=== PATIENT | female | born 1945 | race Caucasian/White ===

== ENCOUNTER 2020-04-17 17:51 | Emergency (ER) | payer MEDICARE, OTHER, SELFPAY ==
[2020-04-17 17:56] VITALS: BP 162/89; PULSE 83; RESP 20; TEMP 36.7; O2SAT 95; BMI 38.9
--- NOTE | 2020-04-17 18:10 | ED_ITS ---
HPI - Extremity Problem General: Chief complaint: Extremity Problem,Nontraumatic Stated complaint: r leg pain Time Seen by Provider: 04/17/20 18:10 History of Present Illness: HPI Narrative: Patient is a 75-year-old female who comes to the ED with lower back pain that radiates down right leg. Symptoms started on May 13. Patient says she was moving too heavy objects at her home and after the symptoms started. Denies any bladder or bowel incon tinence, loss of sensation in the pelvic region, weakness to lower extremities. Associated symptoms: Deny chest pain, fever(s) or rash Review of Systems Const: Denies: fever(s), chills or fatigue Eyes: Denies: change in vision or eye discomfort ENMT: Denies: throat pain, odynophagia, nasal discharge or nasal congestion Card: Denies: chest pain, palpitations, edema, swelling of feet/ankles, dyspnea on exertion or orthopnea Resp: Denies: dyspnea, productive cough or non-productive cough GI: Denies: abdominal pain, nausea, vomiting, diarrhea, constipation or jerardo tochezia : Denies: flank pain, dysuria or hematuria Musc: Reports: back pain and extremity pain (right leg pain radiating down from back); Denies: neck pain or extremity swelling Skin/Breast: Denies: rash or new lesions Neuro: Denies: headache(s), numbness in extremities or weakness in extremities Physical Exam Const: COMMON NORMALS: no acute distress, patient oriented x3 and alert GENERAL APPEARANCE: cooperative and comfortable HENMT: COMMON NORMALS: normocephalic HEAD & SCALP: normocephalic MOUTH: Normal oral and palatal mucosa present THROAT: posterior oropharynx normal and uvula midline Eye: COMMON NORMALS: Equal, round and reactive pupils present PUPIL: Yes Equal, round and reactive pupils present Neck/C-Spine: COMMON NORMALS: supple GENERAL: Yes normal visual inspection Resp: COMMON NORMALS: normal respiratory effort, No retractions, No use of accessory muscles and clear to auscultation bilaterally AUSCULTATION: clear to auscultation bilaterally Cardio: COMMON NORMALS: regular rate, regular rhythm, S1 normal heart sound present, S2 normal heart sound present, No gallops present (Cardio), No clicks present (Cardio), No murmurs present (Cardio) and Peripheral pulses 2+ throughout RATE: regular rate RHYTHM: regular rhythm HEART SOUNDS: S1 normal heart sound present and S2 normal heart sound present PERIPHERAL PULSES: Peripheral pulses 2+ throughout GI: COMMON NORMALS: Normal to inspection, nondistended, normoactive bowel sounds present, Soft to palpation, non-tender and no masses INSPECTION: Yes central obesity PALPATION: Yes Soft to palpation : COMMON NORMALS: Yes no CVA tenderness BLADDER/KIDNEY EXAM: Yes no CVA tenderness Back/Pelvis: COMMON NORMALS: no CVA tenderness LUMBAR SPINE/LOWER BACK: Yes paraspinal muscle tenderness Lumbar paraspinal muscle tenderness: right and Yes straight leg raise positive right Extremity: COMMON NORMALS: no pedal edema NARRATIVE EXTREMITY EXAM: Patient has some mild edema in right thigh. GENERAL: Yes normal exam except as noted Neuro: COMMON NORMALS: patient oriented x3 and moves all extremities SENSORIUM/ORIENTATION: Yes alert Skin: COMMON NORMALS: no rashes or lesions noted GENERAL SKIN EXAM: no rashes or lesions noted and dry skin Course Vital Signs: Vital signs: Vital Signs Temperature 98.1 F 04/17/20 17:56 Pulse Rate 83 04/17/20 17:56 Respiratory Rate 18 04/17/20 20:11 Blood Pressure 162/89 04/17/20 17:56 Pulse Oximetry 95 04/17/20 17:56 MDM - Extremity (Nontraumatic) MDM Narrative: Medical decision making narrative: Patient is a 75-year-old female comes to the ED with low back pain that radiates down right leg. Patient also having some mild swelling of the right thigh. Symptoms started 2 days ago after she lifted and moved a heavy object in her house. Physical exam showed right lumbar muscle tenderness with positive right straight leg test performed. Denies any bladder or bowel incontinence, pelvic anesthesia or any weakness to extremities. Ultrasound venous duplex of right lower extremity showed no DVTs or blood clots. Patient diagnosed with lumbar radiculopathy and sent home with a Medrol Dosepak. Patient told to follow-up with PCP in 5 to 7 days for reevaluation. Return to ED precautions given. Patient understood and agreed with plan. Imaging Data^: US Vascular: Attestation: I personally reviewed and interpreted this imaging study as follows: Radiologist's impression: Ultrasound venous duplex of the right lower extremity shows no DVTs or blood clots seen. Discharge Plan Discharge Patient Disposition: Home Clinical Impression: Lumbar radiculopathy Condition: Stable Prescriptions: New Medrol (Ramses) 4 mg tablets,dose pack See Rx Instructions .ROUTE .COMPLEX Qty: 21 RF: 0 No Action Multiple Vitamins Tablet 1 tab PO DAILY RF: 0 metformin 500 mg tablet See Rx Instructions .ROUTE .COMPLEX RF: 0 trazodone 50 mg tablet 50 mg PO BEDTIME PRN (Reason: Sleep) RF: 0 hydrocodone-acetaminophen 5-325 mg tablet 1 tab PO Q4H PRN (Reason: Pain) RF: 0 lisinopril 20 mg tablet 20 mg PO DAILY RF: 0 Aspir-81 81 mg Tablet,Delayed Release (Dr/Ec) 81 mg PO DAILY RF: 0 diazepam 2 mg tablet 1 mg PO Q12H PRN (Reason: spasms) RF: 0 omeprazole 20 mg capsule,delayed release(DR/EC) 20 mg PO DAILY RF: 0 lovastatin 20 mg tablet 20 mg PO QPM RF: 0 Discharge Orders: Discharge Order (Routine); Ordered 04/17/20 Ordered By: Sanjeev Gaona Referrals: Shaquille Zelaya [Primary Care Provider] - Discharge Diet: Regular Discharge Activity: Increase activity as tolerated Patient Instructions: Lumbar Radiculopathy (ED) Activity Restrictions/Additional Instructions: Follow-up with medical provider as directed in 5-7 days for reevaluation. Take medications as prescribed. Rest and apply heat or cold pack on lower back and hip to help with symptoms. Take ibuprofen up to 600 mg dose 3 times a day. Return to the ER or your medical provider if condition worsens. Please read and understand discharge instructions. If any questions, please ask. Discharge Date/Time: 04/17/20 20:14 Coding Level of Care Code ED Residential Builder for Mary Fwceasar Exam Comprehensive
[2020-04-17 18:11] VITALS: RESP 18
--- NOTE | 2020-04-17 18:51 | USCV_ITS ---
Crissy Santoro Age: 75 Gender: F : 1945 Exam Date: 04/17/2020 19:46 Ordering Phys: Sanjeev Gaona Technologist: Gisselle Khoury [place] [facility] [place]: Pain and swelling HISTORY: Lower extremity swelling. Lower extremity pain. PROCEDURES: Venous duplex imaging was performed in only the right lower extremity. The following venous structures were evaluated: common femoral vein, profunda vein, proximal portion of the greater saphenous vein, superficial femoral vein, and the popliteal vein. In addition, the posterior tibial and peroneal trunk were evaluated. FINDINGS: Normal 2-D Doppler and augmentation and compressibility throughout the right lower extremity venous structures. Additional imaging through the proximal calf veins also reveals no thrombus. Limited evaluation of the greater saphenous vein is patent with no thrombus. There appears to be a complex area noted medial to the right knee. ? Ron's cyst Hypoechoic area measuring 4.76 x 1.14 cm CONCLUSIONS No evidence of DVT in the above-mentioned identifiable veins. Hypoechoic, heterogenous area measuring 4.76 x 1.14 cm on the medial aspect of the right knee, in the popliteal region, may suggest Ron's cyst. Cannot exclude other soft tissue masses Dr Bennett Duran MD [facility] (Electronically Signed) Final Date: 18 April 2020 12:32 S
[2020-04-17] MEDS: predniSONE 20 mg Tablet 60 MG PO (18:58)
[2020-04-17] MEDS: ketorolac 60 mg/2 mL INJ IM (18:59)
[2020-04-17 20:11] VITALS: RESP 18
== END 2020-04-17 20:14 | disposition home or self-care (01) ==
PROVIDERS: Emergency Provider Physician Assistant; PCP Family Medicine
DX: M54.16 Radiculopathy, lumbar region (principal); Z79.82 Long term (current) use of aspirin; M79.89 Other specified soft tissue disorders
CPT/HCPCS: 12345; 93971; 96372; 99281; 99283; J1885; J7512

== ENCOUNTER 2022-12-22 16:31 | Inpatient (IN) | payer MEDICARE, OTHER, SELFPAY ==
[2022-12-22 16:44] VITALS: BP 127/65; PULSE 85; RESP 16; TEMP 36.4; O2SAT 98
--- NOTE | 2022-12-22 16:47 | W.ED.SKABFB ---
HPI - Skin/Abscess/Foreign Bdy General: Chief complaint: Skin/Abscess/Foreign Body Stated complaint: left foot pain/poss metal in it Time Seen by Provider: 12/22/22 16:47 History of Present Illness: Ms Santoro is a 77-year-old lady with history of diabetes on oral agents presented to the emergency department for foot pain and swelling. She reports onset of symptoms approximately 1 week ago without known specific provoking event. She has subsequently seen primary care through the [facility] system and I guess an x-ray demonstrated possible foreign body. She has been on antibiotics for 3 days and has still had worsening. She denies proximal spread, she has had subjective fevers and chills however no other signs of systemic illness. Intensity is moderate of discomfort especially with weightbearing. I guess she was supposed to possibly have podiatry follow-up but this has not been scheduled yet. No other specific changes in health, exacerbating, or alleviating factors identified. Onset (ago): day(s) Location: L foot Severity: moderate Quality: aching Pain Consistency: constant Exacerbating factors: palpation Context: none Associated symptoms: Reports chills and fever(s) Treatments prior to arrival: antibiotic Review of Systems General: Reports: 10 or more systems reviewed and unremarkable except in HPI and below Const: Reports: fever(s) and chills PFSH ED PFSH: Medical History Diabetes Physical Exam Const: COMMON NORMALS: alert GENERAL APPEARANCE: cooperative and well developed HENMT: COMMON NORMALS: normocephalic and atraumatic HEAD & SCALP: normocephalic and atraumatic Eye: COMMON NORMALS: conjunctivae normal CONJUNCTIVA: Yes conjunctivae normal SCLERA: sclerae normal Neck/C-Spine: COMMON NORMALS: supple GENERAL: Yes trachea midline Resp: COMMON NORMALS: clear to auscultation bilaterally EFFORT & INSPECTION: Yes able to speak in complete sentences AUSCULTATION: clear to auscultation bilaterally Cardio: COMMON NORMALS: regular rate and regular rhythm RATE: regular rate RHYTHM: regular rhythm GI: COMMON NORMALS: Soft to palpation PALPATION: Yes Soft to palpation and No Tenderness to palpation present (GI) Extremity: NARRATIVE EXTREMITY EXAM: Left forefoot plantar surface with small break in the skin, there is erythema circumferentially about the forefoot spreading to mid midfoot. CMS intact. GENERAL: Yes normal exam except as noted and No edema Neuro: COMMON NORMALS: moves all extremities SENSORIUM/ORIENTATION: Yes alert and No Orientation impaired Psych: COMMON NORMALS: mental status grossly normal and Normal thought process present THOUGHT PROCESS: Normal thought process present Course Vital Signs: Vital signs: Vital Signs Temperature 98 F 12/24/22 10:53 Pulse Rate 92 12/24/22 10:53 Respiratory Rate 15 12/24/22 10:53 Blood Pressure 184/93 12/24/22 10:53 Pulse Oximetry 97 12/24/22 10:53 Oxygen Delivery Me thod Nasal Cannula 12/24/22 08:00 MDM - Skin/Abscess/Foreign Bdy Medicial Decision Making 77-year-old lady presenting due to concern over foot infection. Exam as above. Labs notable for leukocytosis, normal hemoglobin and platelet count. Metabolic panel with no significant electrolyte derangement. Inflammatory markers are mildly elevated. There is a radiopaque foreign body located on x-ray without evidence of fracture. Discussed with podiatry service who plans for operative removal. Patient treated with antibiotics. Most likely etiology of patient's symptoms is foreign body with diabetic foot infection. This is failed outpatient management. The results of ED evaluation were discussed with the patient including plan for admission due to requirement for level of care not available if discharged to prevent significant worsening/deterioration. Patient agreeable with plan. Discussed with hospitalist service who was agreeable to admit patient. Medical Records I reviewed the patient's medical records. Lab Data I reviewed the patient's lab results. 12/24/22 02:50 12/24/22 02:50 Radiology Impressions Foot X-Ray 12/22/22 16:57 IMPRESSION: Radiopaque foreign body in the plantar soft tissues overlying the 2nd metatarsal head. Laboratory Results WBC 24.6 10^3/uL (4.0-10.0) H 12/22/22 17:16 RBC 4.75 10^6/uL (4.1-5.3) 12/22/22 17:16 Hgb 13.1 g/dL (11.5-15.3) 12/22/22 17:16 Hct 41.6 % (37.0-47.0) 12/22/22 17:16 MCV 87.6 fl (81-99) 12/22/22 17:16 MCH 27.6 pg (28.0-34.0) L 12/22/22 17:16 MCHC 31.5 g/dL (30.0-36.0) 12/22/22 17:16 RDW 14.6 % (12.1-15.1) 12/22/22 17:16 Plt Count 269 10^3/cmm (130-400) 12/22/22 17:16 MPV 10.8 fL (7.4-10.4) H 12/22/22 17:16 Neut % (Auto) 22.3 % 12/22/22 17:16 Lymph % (Auto) 72.1 % 12/22/22 17:16 Burke % (Auto) 4.2 % 12/22/22 17:16 Eos % (Auto) 0.6 % 12/22/22 17:16 Baso % (Auto) 0.4 % 12/22/22 17:16 Neut # (Auto) 5.51 10^3/uL (1.8-7.7) 12/22/22 17:16 Lymph # (Auto) 17.8 10^3/uL (0.8-4.8) H 12/22/22 17:16 Burke # (Auto) 1.0 10^3/uL (0.2-0.9) H 12/22/22 17:16 Eos # (Auto) 0.2 10^3/uL (0.0-0.8) 12/22/22 17:16 Baso # (Auto) 0.1 10^3/uL (0.0-0.1) 12/22/22 17:16 Nucleated RBC % (auto) 0 % 12/22/22 17:16 Nucleated RBCs # 0.0 /100WBC 12/22/22 17:16 ESR 28 mm/hr (0-15) H 12/22/22 17:46 Sodium 140 mmol/L (136-145) 12/22/22 17:16 Potassium 4.7 mmol/L (3.5-5.1) 12/22/22 17:16 Chloride 101 mmol/L (98-107) 12/22/22 17:16 Carbon Dioxide 25 mmol/L (22-29) 12/22/22 17:16 Anion Gap 18.7 (5-19) 12/22/22 17:16 BUN 18 mg/dL (8-23) 12/22/22 17:16 Creatinine 0.7 mg/dL (0.5-0.9) 12/22/22 17:16 GFR Calculation Not Reportable 12/22/22 17:16 Glucose 144 mg/dL (65-115) H 12/22/22 17:16 Calculated Osmolality 294 mOsm/kg (285-295) 12/22/22 17:16 Lactic Acid 1.9 mmol/L (0.5-2.2) 12/22/22 17:16 Calcium 10.1 mg/dL (8.5-10.5) 12/22/22 17:16 Total Bilirubin 0.5 mg/dL (0.15-1.2) 12/22/22 17:16 AST 21 U/L (0-32) 12/22/22 17:16 ALT 23 U/L (0-33) 12/22/22 17:16 Alkaline Phosphatase 121 U/L (35-105) H 12/22/22 17:16 C-Reactive Protein 46.9 mg/L (0.0-4.9) H 12/22/22 17:43 Total Protein 7.3 g/dL (6.6-8.7) 12/22/22 17:16 Albumin 4.3 g/dL (3.5-5.2) 12/22/22 17:16 Globulin 3.0 g/dL (1.3-4.6) 12/22/22 17:16 Discharge Plan Discharge Patient Disposition: Placed in Observation Admit Provider: Clarice Santoyo Clinical Impression: Diabetic foot infection Coding Level of Care Code ED Motion Picture Director for Mary Mckeon
--- NOTE | 2022-12-22 16:57 | XRR_ITS ---
PROCEDURE INFORMATION: Exam: XR Left Foot Exam date and time: 12/22/2022 5:34 PM Age: 77 years old Clinical indication: Pain; Foot; Left; Additional info: Foot pain, redness, swelling, possible foreign body TECHNIQUE: Imaging protocol: Radiologic exam of the left foot. Views: 3 or more views. COMPARISON: No relevant prior studies available. FINDINGS: Bones/joints: The bones are intact and in normal alignment. Hypertrophic degenerative changes of the 2nd distal interphalangeal joint. Calcaneus spur. Soft tissues: 6 mm foreign body in the plantar soft tissues at the level of the 2nd metatarsal head. This is 6 mm deep to the skin surface on the lateral view. XR/XR foot LT min 3V* [id number] IMPRESSION: Radiopaque foreign body in the plantar soft tissues overlying the 2nd metatarsal head.
[2022-12-22 17:24] LABS: Basophils # 0.1 10^3/uL (0.0-0.1); Basophils % 0.4 %; Eosinophils # 0.2 10^3/uL (0.0-0.8); Eosinophils % 0.6 %; Hematocrit 41.6 % (37.0-47.0); Hemoglobin 13.1 g/dL (11.5-15.3); Lymphocytes # 17.8 10^3/uL (0.8-4.8); Lymphocytes % 72.1 %; Mean Corpuscular HGB Conc 31.5 g/dL (30.0-36.0); Mean Corpuscular Hemoglobin 27.6 pg (28.0-34.0); Mean Corpuscular Volume 87.6 fl (81-99); Mean Platelet Volume 10.8 fL (7.4-10.4); Monocytes % 4.2 %; Neutrophils # 5.51 10^3/uL (1.8-7.7); Neutrophils % 22.3 %; Nucleated Red Blood Cells % 0 %; Platelet Count 269 10^3/cmm (130-400); Red Blood Count 4.75 10^6/uL (4.1-5.3); Red Cell Distribution Width 14.6 % (12.1-15.1); White Blood Count 24.6 10^3/uL (4.0-10.0)
[2022-12-22 17:48] LABS: Alanine Aminotransferase 23 U/L (0-33); Albumin Level 4.3 g/dL (3.5-5.2); Alkaline Phosphatase 121 U/L (35-105); Anion Gap 18.7 (5-19); Aspartate Amino Transferase 21 U/L (0-32); Blood Urea Nitrogen 18 mg/dL (8-23); Calcium 10.1 mg/dL (8.5-10.5); Carbon Dioxide 25 mmol/L (22-29); Chloride 101 mmol/L (98-107); Creatinine Clr Calc Pharmacy 65.6782; Glucose 144 mg/dL (65-115); Osmolality Calculated 294 mOsm/kg (285-295); Potassium 4.7 mmol/L (3.5-5.1); Sodium 140 mmol/L (136-145); Total Bilirubin 0.5 mg/dL (0.15-1.2); Total Protein 7.3 g/dL (6.6-8.7)
[2022-12-22 17:49] LABS: Lactic Sepsis W/Reflex 1.9 mmol/L (0.5-2.2)
[2022-12-22 17:59] VITALS: O2SAT 97
[2022-12-22 18:01] VITALS: O2SAT 97
[2022-12-22 18:07] LABS: Slide Review Slide Review Perform
[2022-12-22] MEDS: piperacillin-tazobactam 4.5 GM in sodium chloride 0.9% (plus) 50 ML IV (18:43)
[2022-12-22 18:49] LABS: C Reactive Protein 46.9 mg/L (0.0-4.9)
[2022-12-22 19:15] LABS: Erythrocyte Sedimentation Rate 28 mm/hr (0-15)
--- NOTE | 2022-12-22 19:35 | PM.CONSULT ---
Providers/Reason For Consult Consulting Physician/Specialty*: Cuco Omalley.P.M./podiatry Reason for Consult*: Left foot foreign body with cellulitis Primary Care Provider: Shaquille Zelaya History of Present Illness History of Present Illness Crissy Santoro is a 77 year old female who presents to the emergency department with chief complaint of pain and swelling in her left foot x1 week. Patient does not recall stepping on anything. Patient states that she saw her primary care provider Dr. Morton for this and he placed her on oral antibiotics and told her that she needed to follow-up with podiatry in [place]. Follow-up with podiatry has not been established up to this point. She states that the redness and swelling has improved since starting the antibiotics however she still has tenderness and redness. She states that it is worse when she is weightbearing. Patient does have a history of type 2 diabetes. She states that her blood sugars are relatively regulated. She does not know exactly what her daily glucose is or what her most recent A1c is. She does endorse subjective fever, chills but denies any nausea or vomiting, shortness of breath or chest pain. Review of Systems General: Reports: 10 or more systems reviewed and unremarkable except in HPI and below Const: Denies: fever(s), chills, body aches or change in appetite Eyes: Denies: change in vision or blurry vision Card: Denies: chest pain, palpitations or irregular heart rhythm Resp: Denies: dyspnea GI: Denies: abdominal pain, nausea, vomiting or diarrhea Musc: Reports: joint stiffness Skin/Breast: Reports: lesions; Denies: non-healing lesions Neuro: Reports: numbness in extremities Medications/Allergies Home Medications Medication Instructions Recorded Confirmed Last Taken Type aspirin 81 mg tablet,delayed 81 mg PO DAILY 04/17/20 04/17/20 04/17/20 History release (Aspir-) diazepam 2 mg tablet 1 mg PO Q12H PRN spasms 04/17/20 04/17/20 04/17/20 06:00 History hydrocodone 5 mg-acetaminophen 325 1 tab PO Q4H PRN Pain 04/17/20 04/17/20 04/17/20 12:00 History mg tablet lisinopril 20 mg tablet 20 mg PO DAILY 04/17/20 04/17/20 04/16/20 History lovastatin 20 mg tablet 20 mg PO QPM 04/17/20 04/17/20 04/16/20 History metformin 500 mg tablet See Rx Instructions .Route .COMPLEX 04/17/20 04/17/20 04/17/20 History methylprednisolone 4 mg tablets in See Rx Instructions PO .COMPLEX 04/17/20 Unknown Rx a dose pack (Medrol (Ramses)) #21 ea multivitamin (Multiple Vitamins 1 tab PO DAILY 04/17/20 04/17/20 Unknown History tablet) omeprazole 20 mg capsule,delayed 20 mg PO DAILY 04/17/20 04/17/20 04/16/20 History release trazodone 50 mg tablet 50 mg PO BEDTIME PRN Sleep 04/17/20 04/17/20 04/16/20 History Allergies Allergy/AdvReac Type Severity Reaction Status Date / Time No Known Allergies Allergy Verified 04/17/20 18:24 PFSH Acute PFSH: Medical History (Updated 12/22/22 @ 19:42 by Shaquille Doll DPM) Diabetes Vitals/I&O/Wt Last Vital Signs Temp 97.6 F 12/22/22 16:44 Pulse 85 12/22/22 16:44 Resp 16 12/22/22 16:44 BP 127/65 12/22/22 16:44 Pulse Ox 97 12/22/22 18:01 O2 Del Method 12/22/22 18:01 Weight last 48 hrs Weight 210 lb Physical Exam Narrative: BELOW IS A FOCUSED LOWER EXTREMITY EXAM GENERAL: A&O x 3 VASCULAR: DP/PT pulses palpable 2/4 with CFT intact, <3seconds to distal digits. Marked edema to left foot concentrated around the forefoot DERMATOLOGICAL: Left foot is erythematous stemming from small puncture wound on plantar aspect of second metatarsal. No active drainage. Erythema envelops the entire left forefoot and is noted to be approximately 1 cm proximal to the metatarsophalangeal joints. There is no active drainage or purulence coming from the puncture site. Blanching noted to medial aspect of left second digit in the plantar sulcus tracking along the medial aspect of the second toe into the 1?2 interdigital space. No underlying fluctuance but tissues are noted to be taut on exam. MUSCULOSKELETAL: Tenderness with palpation of plantar left foot at the first, second and third metatarsal phalangeal joint regions including the medial first metatarsal phalangeal joint. Epicenter of pain is plantar aspect of second metatarsal. NEUROLOGICAL: Neurological sensation to the affected foot and ankle is present through L4-S1 dermatomes with no hyper/hypoesthesias, negative Tinel or Valleix's sign Data 12/22/22 17:16 12/22/22 17:16 Micro: Microbiology 12/22/22 17:16 Blood Culture - Preliminary Blood SPECIMEN COLLECTED 12/22/22 17:16 Blood Culture - Preliminary Blood SPECIMEN COLLECTED A&P Assessment and plan (1) Foreign body in left foot: (2) Diabetes: (3) Cellulitis: (4) Leukocytosis: Plan COURSE: Patient is a 77-year-old female that has a history of diabetes who presented to the emergency department with worsening left foot infection with foreign body present. She was placed on oral antibiotics per primary care provider. She states that the redness and swelling has improved since being on the oral antibiotics however, she still experiences pain and walking around and she has noticed redness and swelling. She does not recall stepping on anything. In the emergency department her work-up revealed leukocytosis with white count of 24.9. I discussed at length with the patient given the leukocytosis and the red, hot, swollen left forefoot with foreign body present on x-ray and her history of diabetes that the best course of action would be admission with IV antibiotics with surgical intervention to remove the foreign body with washout tomorrow 12/23/22. The patient stated that she cannot stay in the hospital because she needs to take care of her animals. She made a point to stay that she would leave AGAINST MEDICAL ADVICE to take care of her animals. She does not want stay in the hospital to get this taken care of if she does not have to. I advised the patient that my recommendation is admission with IV antibiotics and surgical intervention. If the patient does leave AGAINST MEDICAL ADVICE she assumes the risks that come with this which include worsening infection which could ultimately lead to amputation. Patient's sister was brought into the room to help her understand the gravity of the situation. After discussion with her and her sister the patient decided that she would stay in the hospital to get this taken care of to prevent worsening of the infection. Patient again made mention that she will not stay any longer that she has to and that she better be out of here by Sunday . 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 Radiopaque foreign body noted in plantar aspect of foot under the metatarsal phalangeal joints with increase soft tissue density. No subcutaneous emphysema noted. There appears to be a second radiopaque object noted on AP and oblique views under the second metatarsal which could present as a glass foreign body. This does not appear to represent the same foreign body visualized on the lateral projection which has increased radiopacity. No fractures or dislocations noted. ABX: Patient received vancomycin/Zosyn in the emergency department PLAN: -Admission to hospital with IV antibiotics and podiatry on consult -N.p.o. at midnight for procedure tomorrow (12/23/2022) for left foot incision and drainage with removal of foreign body -Continue IV antibiotics -Cultures of deep tissue will be obtained in the operating room tomorrow -Trend labs and monitor for decrease in white blood count, ESR and CRP -Plan for discharge will be determined after surgical intervention tomorrow (12/23/2022) -Podiatry will round on the patient while inpatient provide recommendations towards discharge Consult Attestations Medical Necessity Statement: Left foot foreign body, leukocytosis, elevated ESR, CRP necessitating surgical intervention Coding Level of Care Code Acute Code for Chg Fwd Diagnoses Foreign body in left foot S90.852A Diabetes E11.9 Cellulitis L03.90 Leukocytosis D72.829
--- NOTE | 2022-12-22 19:59 | P.HP_ITS ---
Providers/Chief Complaint Primary Care Provider: Shaquille Zelaya Chief Complaint: left foot pain/poss metal in it History of Present Illness Crissy Santoro is a 77 year old female with past medical history of diabetes, hypertension presents to the hospital with left foot pain and swelling that started about a week ago. She does not recall stepping on a nail or any other possible foreign body. She went to her primary care doctor and was given antibiotics for 3 days left foot Worsening therefore she presented to the hospital. She also reports subjective fevers and chills however no other signs of systemic illness. She is unable to weight-bear without discomfort. She was supposed to see podiatry as an outpatient however has not made it to the appointment yet. Says mostly her blood sugar is regulated. Does not know her A1c however. ED course: 127/65 heart rate 16, pulse 85, temperature 97.6, saturating 98% on room air. WBC 24,000, platelets 269, hemoglobin 13.1, sodium 140, potassium 4.7, anion gap 18.7, creatinine 0.7, glucose 144 Medications/Allergies Home Medications Medication Instructions Recorded Confirmed Last Taken Type aspirin 81 mg tablet,delayed 81 mg PO DAILY 04/17/20 04/17/20 04/17/20 History release (Aspir-) hydrocodone 5 mg-acetaminophen 325 1 tab PO Q4H PRN Pain 04/17/20 04/17/20 04/17/20 12:00 History mg tablet lisinopril 20 mg tablet 20 mg PO DAILY 04/17/20 04/17/20 04/16/20 History metformin 500 mg tablet See Rx Instructions .Route .COMPLEX 04/17/20 04/17/20 04/17/20 History omeprazole 20 mg capsule,delayed 20 mg PO DAILY 04/17/20 04/17/20 04/16/20 History release trazodone 50 mg tablet 50 mg PO BEDTIME PRN Sleep 04/17/20 04/17/20 04/16/20 History allopurinol 100 mg tablet 100 mg PO DAILY 12/22/22 12/22/22 12/22/22 History atorvastatin 20 mg tablet 20 mg PO DAILY 12/22/22 12/22/22 12/21/22 History Allergies Allergy/AdvReac Type Severity Reaction Status Date / Time No Known Allergies Allergy Verified 04/17/20 18:24 PFSH Acute PFSH: Medical History (Updated 12/23/22 @ 01:43 by Clarice Santoyo MD) Diabetes Vitals/I&O/Wt Last Vital Signs Temp 97.6 F 12/22/22 16:44 Pulse 85 12/22/22 16:44 Resp 16 12/22/22 16:44 BP 127/65 12/22/22 16:44 Pulse Ox 97 12/22/22 18:01 O2 Del Method 12/22/22 18:01 Weight last 48 hrs Weight 95.254 kg Physical Exam Narrative: General: Alert oriented x3, patient seen laying in bed appearing comfortable at this time. HEENT: Normocephalic, atraumatic, EOMI, no acute respiratory distress Cardio: Regular rate rhythm, normal S1-S2 Respiratory: Clear to auscultation bilaterally no wheezes no rhonchi GI: Abdomen soft, nontender, bowel sounds + Behavior: Appropriate and cooperative Extremities: No edema bilateral lower extremities. Left foot with erythematous with a small puncture wound present on plantar surface of foot. No active drain age. Tenderness to palpation of left first second and third metatarsal regions. Data 12/22/22 17:16 12/22/22 17:16 Micro: Microbiology 12/22/22 17:16 Blood Culture - Preliminary Blood SPECIMEN COLLECTED 12/22/22 17:16 Blood Culture - Preliminary Blood SPECIMEN COLLECTED A&P Assessment and plan (1) Leukocytosis: (2) Cellulitis: (3) Foreign body in left foot: (4) Diabetes: (5) Diabetes: (6) HTN (hypertension): Plan #Foreign body in left foot #Diabetic foot wound infection #Cellulitis #Leukocytosis most likely secondary to above #Diabetes mellitus #Hypertension ? Elevated ESR, CRP, WBC 24,000, glucose 144. X-ray left foot showed radiopaque foreign body noted in plantar aspect of foot under metatarsophalangeal joints with increased soft tissue density. No subcutaneous emphysema noted. ? Continue vancomycin and Zosyn ? N.p.o. at midnight for left foot I&D with removal of foreign body ? Podiatry consulted. Recommendations appreciated ? Further management to be decided after procedure ? Check hemoglobin A1c ? Continue lisinopril 20 daily ? Continue aspirin, atorvastatin, omeprazole ? Hold metformin at this time ? Sliding scale insulin low-dose intensity Full code SCDs, heparin SQ twice daily Attestations Medical Necessity Statement*: Greater than 2 midnight stay for management of foreign body in left foot cellulitis, diabetic foot wound infection. Patient going to I&D surgical procedure in AM. Other Coding Information Focused coding review requested Diagnoses Leukocytosis D72.829 Cellulitis L03.90 Foreign body in left foot S90.852A Diabetes E11.9 Diabetes E11.9 HTN (hypertension) I10
[2022-12-22 22:44] VITALS: BP 151/79; PULSE 82; RESP 17; TEMP 36.7; O2SAT 94
[2022-12-23] VITALS (16 sets, daily range): BP systolic 114–177; BP diastolic 58–94; PULSE 74–89; RESP 15–18; TEMP 36.1–36.8; O2SAT 90–100
[2022-12-23] MEDS: sodium chloride 0.9% 1,000 ML 125 ML IV ×4 (02:14→23:23)
[2022-12-23] MEDS: pantoprazole 40 mg SDV IVP (02:15)
[2022-12-23] MEDS: heparin 5,000 unit/mL INJ 1 mL 5000 UNIT SUBCUT ×2 (02:15→13:42)
[2022-12-23 02:23] LABS: Lactic Sepsis W/Reflex 2.9 mmol/L (0.5-2.2)
[2022-12-23 02:31] LABS: Procalcitonin 0.09 ng/mL (0-0.5)
[2022-12-23 02:32] LABS: Thyroid Stimulating Hormone 0.88 uIU/mL (0.27-4.20)
[2022-12-23] MEDS: piperacillin-tazobactam 3.375 GM in sodium chloride 0.9% (plus) 50 ML IV ×3 (03:09→17:57)
[2022-12-23 03:19] LABS: Alanine Aminotransferase 22 U/L (0-33); Albumin Level 3.7 g/dL (3.5-5.2); Alkaline Phosphatase 100 U/L (35-105); Anion Gap 19.3 (5-19); Aspartate Amino Transferase 25 U/L (0-32); Blood Urea Nitrogen 16 mg/dL (8-23); Calcium 9.8 mg/dL (8.5-10.5); Carbon Dioxide 22 mmol/L (22-29); Chloride 100 mmol/L (98-107); Creatinine Clr Calc Pharmacy 65.6782; Globulin 2.9 g/dL (1.3-4.6); Glucose 212 mg/dL (65-115); Osmolality Calculated 291 mOsm/kg (285-295); Potassium 4.3 mmol/L (3.5-5.1); Sodium 137 mmol/L (136-145); Total Bilirubin 0.4 mg/dL (0.15-1.2); Total Protein 6.6 g/dL (6.6-8.7)
[2022-12-23 03:20] LABS: Hematocrit 40.8 % (37.0-47.0); Hemoglobin 12.7 g/dL (11.5-15.3); Mean Corpuscular HGB Conc 31.1 g/dL (30.0-36.0); Mean Corpuscular Hemoglobin 27.5 pg (28.0-34.0); Mean Corpuscular Volume 88.5 fl (81-99); Mean Platelet Volume 11.5 fL (7.4-10.4); Platelet Count 264 10^3/cmm (130-400); Red Blood Count 4.61 10^6/uL (4.1-5.3); Red Cell Distribution Width 14.8 % (12.1-15.1); White Blood Count 19.4 10^3/uL (4.0-10.0)
[2022-12-23 03:44] LABS: Absolute Eosinophils 0.5 10^3/cmm (0.0-0.7); Absolute Neutrophil 4.7 10^3/cmm (1.4-6.5); Absolute Segmented Neutrophil 4.7 10/cmm (1.6-7.1); Eosinophils 3 %; Lymphocytes 63 %; Lymphocytes Absolute 12.8 10^3/cmm (1.2-3.4); Monocytes Absolute 1.4 10^3/cmm (0.1-0.6); Platelet Estimate Normal (Normal); Segmented Neutrophils 24 %; Total Cells Counted 100 (0-100)
[2022-12-23 03:52] LABS: Reflex Lactate Order REFLEX LACTIC ORDERD
[2022-12-23] MEDS: sodium chloride 0.9% 1,000 ML 999 ML IV (04:55)
[2022-12-23 05:08] LABS: Lactic Acid level (Lactate) 2.4 mmol/L (0.5-2.2)
[2022-12-23 09:26] LABS: Estmated Average Glucose 189; Hemoglobin A1C 8.2 % (4.0-6.0)
[2022-12-23 11:08] LABS: Glucose Point of Care 173 mg/dL (70-110)
--- NOTE | 2022-12-23 11:44 | W.PM.OPSUD ---
Surgery/Procedure H&P Update DATE OF PROCEDURE: December 23, 2022 DATE H&P PERFORMED: 12/22/22 CHANGES TO PREVIOUS DOCUMENTATION: No changes PLANNED PROCEDURE: Operation Date: 12/23/22 12:00 Proposed Procedures p Incision And Drainage and Remova of Foreign Body(Left) - Shaquille Doll DPM
--- NOTE | 2022-12-23 12:33 | ANES.PREANE2 ---
Pre-Anesthetic Assessment Height/Weight: Height 1.6 m Weight 95.254 kg Temp Pulse Resp BP Pulse Ox O2 Del Method 97.8 F 86 18 177/94 100 12/23/22 11:35 12/23/22 11:35 12/23/22 11:35 12/23/22 11:35 12/23/22 11:35 12/23/22 11:35 Operation Date: 12/23/22 12:00 Proposed Procedures p Incision And Drainage and Remova of Foreign Body(Left) - Shaquille Doll DPM Was Beta Shelia taken within 24 hours: N/A Social No alcohol and No tobacco Exam alert, oriented x 3, clear to auscultation bilaterally and regular rate & rhythm Airway Submandibular: within normal limits Cervical ROM: within normal limits Mallampati: Class II GI Gastroesophageal Reflux Disease (well controlled) Metabolic Diabetes Mellitus and Hyperlipidemia Anesthetic Plan ASA status: 3E Anesthesia: MAC Medications/Allergies Home Medications Medication Instructions Recorded Confirmed Last Taken Type aspirin 81 mg tablet,delayed 81 mg PO Q7D 04/17/20 12/22/22 04/17/20 History release (Aspir-) hydrocodone 5 mg-acetaminophen 325 1 tab PO Q4H PRN Pain 04/17/20 12/22/22 04/17/20 12:00 History mg tablet lisinopril 20 mg tablet 20 mg PO BEDTIME 04/17/20 12/22/22 12/21/22 History metformin 500 mg tablet See Rx Instructions .Route .COMPLEX 04/17/20 12/22/22 12/22/22 History omeprazole 20 mg capsule,delayed 20 mg PO DAILY 04/17/20 12/22/22 12/22/22 History release trazodone 50 mg tablet 50 mg PO BEDTIME PRN Sleep 04/17/20 12/22/22 04/16/20 History allopurinol 100 mg tablet 100 mg PO DAILY 12/22/22 12/22/22 12/22/22 History atorvastatin 20 mg tablet 20 mg PO DAILY 12/22/22 12/22/22 12/21/22 History Allergies Allergy/AdvReac Type Severity Reaction Status Date / Time No Known Allergies Allergy Verified 04/17/20 18:24 Current Medications Generic Name Dose Route Start Last Admin Trade Name Freq PRN Reason Stop Dose Admin Heparin Sodium (Porcine) 5,000 unit 12/23/22 01:45 12/23/22 02:15 Heparin 5,000 Unit/Ml Inj 1 Ml SUBCUT 5,000 unit Q12H MOIRA Administration Sodium Chloride 1,000 mls @ 125 mls/hr 12/23/22 01:45 12/23/22 09:59 Sodium Chloride 0.9% IV 125 mls/hr .Q8H MOIRA Administration Piperacillin Sod/Tazobactam 50 mls @ 12.5 mls/hr 12/23/22 03:00 12/23/22 10:59 Sod 3.375 gm/ Sodium Chloride IV 12.5 mls/hr Q8H MOIRA Administration Protocol Pantoprazole Sodium 40 mg 12/23/22 01:45 12/23/22 02:15 Pantoprazole 40 Mg Sdv IVP 40 mg Q24H MOIRA Administration PFSH Anesthesia Medical History (Updated 12/23/22 @ 01:43 by Clarice Santoyo MD) Diabetes Data Anesthesia 12/23/22 01:55 12/23/22 01:55 Short CBC 12/22/22 12/23/22 Range/Units 17:16 01:55 WBC 24.6 H 19.4 H (4.0-10.0) 10^3/uL Hgb 13.1 12.7 (11.5-15.3) g/dL Hct 41.6 40.8 (37.0-47.0) % MCV 87.6 88.5 (81-99) fl Plt Count 269 264 (130-400) 10^3/cmm Neut % (Auto) 22.3 % Neut # (Auto) 5.51 (1.8-7.7) 10^3/uL BMP 12/22/22 12/23/22 17:16 01:55 Sodium 140 137 Potassium 4.7 4.3 Chloride 101 100 Carbon Dioxide 25 22 BUN 18 16 Creatinine 0.7 0.8 Glucose 144 H 212 H Calcium 10.1 9.8 Liver Function 12/22/22 12/23/22 Range/Units 17:16 01:55 Total Bilirubin 0.5 0.4 (0.15-1.2) mg/dL AST 21 25 (0-32) U/L ALT 23 22 (0-33) U/L Alkaline Phosphatase 121 H 100 (35-105) U/L Albumin 4.3 3.7 (3.5-5.2) g/dL Coags 12/22/22 12/22/22 17:43 17:46 ESR 28 H C-Reactive Protein 46.9 H Microbiology 12/22/22 17:16 Blood Culture - Preliminary Blood SPECIMEN COLLECTED 12/22/22 17:16 Blood Culture - Preliminary Blood SPECIMEN COLLECTED Cardiac Studies: No Data to Display
--- NOTE | 2022-12-23 13:05 | PM.OP ---
Operative Report Date of procedure: December 23, 2022 Pre-op diagnosis: Cellulitis, foreign body left foot Post-op diagnosis: Same Post-op findings: Ceramic foreign body measuring 6 mm, triangular in shape pulled from plantar second metatarsal area of foot embedded in deep fascia with small abscess formation Procedure done: Incision and drainage left foot with removal of deep foreign body CPT 61101 Specimens removed/disposition: Cultures aerobic and anaerobic deep tissue sent to micro for ID and sensitivity Surgeon: Dr. Shaquille Doll, D.P.M. Estimated blood loss: Less than 5 cc 7 minutes Complications: None Findings: See above Brief History: Patient is a 77-year-old female that has a history of worsening left foot infection with foreign body. The patient has had the aforementioned chief complaint for approximately 1 week with worsening symptoms. The patient has failed outpatient antibiotics and presented to the emergency department with leukocytosis of 25,000 with clinical signs of left foot infection. The foreign body likely being the main source of infection requires surgical intervention. A lengthy discussion regarding the procedure, including risks and complications has been had with the patient. Written and verbal consent have been obtained. All patient questions have been answered to the patient?s satisfaction. No written or verbal guarantees have been given or implied. The patient has been NPO since midnight. The history has been reviewed and the history and physical is current. The signed consent was confirmed and placed in the patient chart. Patient imaging has been reviewed and is consistent with the diagnosis. Under mild sedation, the patient was brought into the operating room and left on the gurney in the supine position. The patient is receiving antibiotics [id number] on the floor. IV sedation was then performed by the anesthesiateam. A local field block using 20 cc of 0.5% Marcaine plain was then performed. A pneumatic tourniquet was then placed about the left ankle. The operative extremity was then prepped and draped in the usual fashion. The extremity was then elevated before the tourniquet was inflated to 250 mmHg. After inflation, the following procedure was then performed. Attention was directed to the plantar aspect of the left foot where a 3.5 cm incision was made over the plantar aspect of the second metatarsal. Dissection was carried down through subcutaneous and superficial fascia bluntly using a hemostat. There was noted to be accumulation of serous drainage with mild purulence in the deep fascia. A white ceramic appearing triangular shaped foreign body was visualized and grasped with a hemostat and removed from the foot. Further exploration of the wound was performed to assess integrity of adjacent structures. The tissues surrounding appeared healthy. Deep tissues both aerobic and anaerobic were obtained and sent to micro for ID and sensitivity. The area of the foreign body was noted to track dorsally into the 1?2 intermetatarsal space. No residual purulence was noted in this area and again, the tissues were noted to be healthy and viable in appearance. No bony involvement was appreciated. The site was then irrigated with copious amounts of sterile saline before attention was directed to closure. The incision was closed with 2-0 Prolene in horizontal mattress and simple interrupted fashion. The tourniquet was let down and good hyperemic response was noted to all digits of the left foot. The incision site was dressed with Xeroform, 4 x 4 gauze, Kerlix and Coban. The patient tolerated the procedure and anesthesia well and without complication. The patient was transported from the operating room to the recovery room with vital signs stable and vascular status intact to all digits of the left foot. The patient was instructed to remain weightbearing as tolerated to the operative extremity, to keep surgical dressing clean, dry and intact. The patient will be transferred back to the floor once anesthesia criteria is met. I will continue to round on and follow the patient in the inpatient setting and provide recommendations to stabilize the patient for discharge. We will trend labs and evaluate clinical response to status post incision and drainage with foreign body removal. If patient continues to improve anticipate discharge tomorrow (12/24/2022)
--- NOTE | 2022-12-23 13:23 | ANE.PACU2 ---
Inpatient post-anesthesia follow up: Vital signs: Temperature 98.0 F Pulse Rate 80 Respiratory Rate 16 Blood Pressure 122/78 Pulse Oximetry 97 Oxygen Delivery Me thod Room Air Oxygen Flow Rate Fraction of Inspir ed Oxygen Hydration adequate: Yes Nausea and vomiting: No Pain level: 1 Mental status: Baseline
--- NOTE | 2022-12-23 13:26 | PC.NURSE ---
Patient arrived to 252-2 back from surgery.
[2022-12-23] MEDS: vancomycin 1,500 MG/300 ML PIGGYBACK 200 MG IV (13:42)
--- NOTE | 2022-12-23 13:54 | P.PN_ITS ---
Subjective Subjective: Patient was seen this morning, she is not sure if she stepped on anything, but she does have sensation in bilateral feet, Vitals/I&O/Wt Last Vital Signs Temp 97.6 F 12/23/22 13:20 Pulse 79 12/23/22 13:20 Resp 16 12/23/22 13:20 BP 173/90 12/23/22 13:20 Pulse Ox 96 12/23/22 13:20 O2 Del Method 12/23/22 13:20 12/22/22 12/23/22 12/23/22 22:59 06:59 14:59 Intake Total 550 / 550 1000 / 1550 1018.75 / 1018.75 Output Total 5 / 5 Balance 550 / 550 1000 / 1550 1013.75 / 1013.75 Weight last 48 hrs Weight 95.254 kg Physical Exam Const: COMMON NORMALS: no acute distress and patient oriented x3 Resp: COMMON NORMALS: normal respiratory effort, No retractions, No use of accessory muscles and clear to auscultation bilaterally AUSCULTATION: clear to auscultation bilaterally Cardio: COMMON NORMALS: regular rate, regular rhythm, S1 normal heart sound present and S2 normal heart sound present RATE: regular rate RHYTHM: regular rhythm HEART SOUNDS: S1 normal heart sound present and S2 normal heart sound present GI: COMMON NORMALS: Normal to inspection, nondistended, normoactive bowel sounds present and non-tender Extremity: NARRATIVE EXTREMITY EXAM: Left foot erythema, swelling, tenderness, the entire forefoot Neuro: COMMON NORMALS: patient oriented x3 Psych: COMMON NORMALS: mental status grossly normal Data 12/23/22 01:55 12/23/22 01:55 Micro: Microbiology 12/22/22 17:16 Blood Culture - Preliminary Blood SPECIMEN COLLECTED 12/22/22 17:16 Blood Culture - Preliminary Blood SPECIMEN COLLECTED A&P Assessment and plan (1) Leukocytosis: (2) Cellulitis: (3) Foreign body in left foot: (4) Diabetes: (5) Diabetes: (6) HTN (hypertension): Plan #Foreign body in left foot #Diabetic foot wound infection #Cellulitis #Leukocytosis most likely secondary to above #Diabetes mellitus #Hypertension ? Elevated ESR, CRP, WBC 24,000, glucose 144. X-ray left foot showed radiopaque foreign body noted in plantar aspect of foot under metatarsophalangeal joints with increased soft tissue density. No subcutaneous emphysema noted. ? Continue vancomycin and Zosyn ? N.p.o. for foot I&D with removal of foreign body ? Podiatry consulted. Recommendations appreciated ? Further management to be decided after procedure ? Type 2 diabetes mellitus, A1c 8.2, low-dose sliding scale ? Continue lisinopril 20 daily ? Continue aspirin, atorvastatin, omeprazole ? Hold metformin at this time ? Sliding scale insulin low-dose intensity Full code SCDs, heparin SQ twice daily Attestations Medical Necessity Statement*: Patient requires hospitalization for cellulitis, diabetic foot infection, foreign body left foot Diagnoses Leukocytosis D72.829 Cellulitis L03.90 Foreign body in left foot S90.852A Diabetes E11.9 Diabetes E11.9 HTN (hypertension) I10
[2022-12-23 17:11] LABS: Glucose Point of Care 197 mg/dL (70-110)
[2022-12-23] MEDS: insulin lispro 100 unit/1 mL SUBCUT (17:57)
[2022-12-23] MEDS: acetaminophen 325 mg Tablet 650 MG PO (20:48)
[2022-12-23] MEDS: morphine 4 mg/mL SDV 1 mL 1 MG IVP (23:21)
[2022-12-24] MEDS: heparin 5,000 unit/mL INJ 1 mL 5000 UNIT SUBCUT (02:16)
[2022-12-24] MEDS: pantoprazole 40 mg SDV IVP (02:16)
[2022-12-24] MEDS: piperacillin-tazobactam 3.375 GM in sodium chloride 0.9% (plus) 50 ML IV (02:16)
[2022-12-24 03:34] VITALS: BP 155/77; PULSE 75; RESP 16; TEMP 36.7; O2SAT 94
[2022-12-24 04:06] LABS: Basophils # 0.1 10^3/uL (0.0-0.1); Basophils % 0.3 %; Eosinophils # 0.2 10^3/uL (0.0-0.8); Hematocrit 39.4 % (37.0-47.0); Hemoglobin 11.9 g/dL (11.5-15.3); Lymphocytes # 15.6 10^3/uL (0.8-4.8); Lymphocytes % 66.1 %; Mean Corpuscular HGB Conc 30.2 g/dL (30.0-36.0); Mean Corpuscular Volume 89.3 fl (81-99); Monocytes # 2.2 10^3/uL (0.2-0.9); Monocytes % 9.5 %; Neutrophils # 5.35 10^3/uL (1.8-7.7); Neutrophils % 22.8 %; Nucleated Red Blood Cells % 0 %; Platelet Count 261 10^3/cmm (130-400); Red Blood Count 4.41 10^6/uL (4.1-5.3); Red Cell Distribution Width 14.6 % (12.1-15.1); White Blood Count 23.5 10^3/uL (4.0-10.0)
[2022-12-24 04:24] LABS: Alanine Aminotransferase 27 U/L (0-33); Albumin Level 3.6 g/dL (3.5-5.2); Alkaline Phosphatase 104 U/L (35-105); Aspartate Amino Transferase 24 U/L (0-32); Blood Urea Nitrogen 11 mg/dL (8-23); Calcium 8.9 mg/dL (8.5-10.5); Carbon Dioxide 23 mmol/L (22-29); Chloride 102 mmol/L (98-107); Creatinine Clr Calc Pharmacy 65.6782; Globulin 2.5 g/dL (1.3-4.6); Glucose 203 mg/dL (65-115); Magnesium 1.7 mg/dL (1.7-2.3); Osmolality Calculated 283 mOsm/kg (285-295); Sodium 134 mmol/L (136-145); Total Bilirubin 0.2 mg/dL (0.15-1.2); Total Protein 6.1 g/dL (6.6-8.7)
[2022-12-24] MEDS: sodium chloride 0.9% 1,000 ML 125 ML IV (06:08)
--- NOTE | 2022-12-24 06:10 | PC.NURSE ---
Patient is adamantly saying she is going home this morning. Patient was educated that the physician has not put in discharge orders. Patient is agreeable to stay for now but states she is going home by noon today.
[2022-12-24 06:45] LABS: Glucose Point of Care 168 mg/dL (70-110)
[2022-12-24 08:00] VITALS: BP 184/93; PULSE 92; RESP 15; TEMP 36.6; O2SAT 97
--- NOTE | 2022-12-24 08:23 | P.PN_ITS ---
Subjective Subjective: Patient seen this morning. Upon entering the room she was seated in the chair getting dressed putting her shoes on stating that she is ready to leave. She denies any overnight events. States that she is feeling much better and that her foot does not hurt at all. Given her persistent elevated white blood cells I had another conversation with the patient in regards to her past medical history. She was much more compliant to talk about her past medical history this morning in comparison to when I first evaluated her in the emergency department. 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 Patient has removed her own IV and states that she is ready to go. Vitals/I&O/Wt Last Vital Signs Temp 98.1 F 12/24/22 03:34 Pulse 75 12/24/22 03:34 Resp 16 12/24/22 03:34 BP 155/77 12/24/22 03:34 Pulse Ox 94 12/24/22 03:34 O2 Del Method 12/24/22 03:34 12/23/22 12/24/22 12/24/22 22:59 06:59 14:59 Intake Total 1418.333 / 2437.083 1893.75 / 4330.833 Balance 1418.333 / 2432.083 1893.75 / 4325.833 Weight last 48 hrs Weight 210 lb Physical Exam Narrative: BELOW IS A FOCUSED LOWER EXTREMITY EXAM GENERAL: A&O x 3 VASCULAR: DP/PT pulses palpable 2/4 with CFT intact, <3seconds to distal digits. Mild edema to left forefoot DERMATOLOGICAL: Left foot erythema has improved, no pain with palpation of left forefoot. No underlying fluctuance no active drainage from incision site. Incision is well coapted with sutures intact. No evidence of dehiscence or signs of infection. MUSCULOSKELETAL: No tenderness with palpation of left foot or emily-incisional area NEUROLOGICAL: Neurological sensation to the affected foot and ankle is present through L4-S1 dermatomes with no hyper/hypoesthesias, negative Tinel or Valleix's sign Data 12/24/22 02:50 12/24/22 02:50 Micro: Microbiology 12/22/22 17:16 Blood Culture - Preliminary Blood NEGATIVE TO DATE 12/22/22 17:16 Blood Culture - Preliminary Blood NEGATIVE TO DATE 12/23/22 12:46 Gram Stain - Final Other Source A&P Assessment and plan (1) Foreign body in left foot: (2) Diabetes: (3) Cellulitis: (4) Leukocytosis: Plan COURSE: Patient is a 77-year-old female that has a history of diabetes who presented to the emergency department with worsening left foot infection with foreign body present. She was placed on oral antibiotics per primary care provider. She states that the redness and swelling has improved since being on the oral a ntibiotics however, she still experiences pain and walking around and she has noticed redness and swelling. She does not recall stepping on anything. In the emergency department her work-up revealed leukocytosis with white count of 24.9. I discussed at length with the patient given the leukocytosis and the red, hot, swollen left forefoot with foreign body present on x-ray and her history of alejandro betes that the best course of action would be admission with IV antibiotics with surgical intervention to remove the foreign body with washout tomorrow 12/23/22. The patient stated that she cannot stay in the hospital because she needs to take care of her animals. She made a point to stay that she would leave AGAINST MEDICAL ADVICE to take care of her animals. She does not want stay in the hospital to get this taken care of if she does not have to. I advised the patient that my recommendation is admission with IV antibiotics and surgical intervention. If the patient does leave AGAINST MEDICAL ADVICE she assumes the risks that come with this which include worsening infection which could ul timately lead to amputation. Patient's sister was brought into the room to help her understand the gravity of the situation. After discussion with her and her sister the patient decided that she would stay in the hospital to get this taken care of to prevent worsening of the infection. Patient again made mention that she will not stay any longer that she has to and that she better be out of here by Sunday . Continued: Patient is status post left foot incision and drainage with removal of foreign body. Patient has persistent leukocytosis. In discussing further with the patient at bedside in regards to her past medical history she informed me that she does have history of rheumatologic issues as well as a form of leukemia for which she follows with a provider in [place]. Patient states that she is feeling good and is leaving the hospital this morning. She has removed her IV and is fully dressed and ready to go when evaluated at bedside. 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 Radiopaque foreign body noted in plantar aspect of foot under the metatarsal phalangeal joints with increase soft tissue density. No subcutaneous emphysema noted. There appears to be a second radiopaque object noted on AP and oblique views under the second metatarsal which could present as a glass foreign body. This does not appear to represent the same foreign body visualized on the lateral projection which has increased radiopacity. No fractures or dislocations noted. ABX: Patient received vancomycin/Zosyn in the emergency department PLAN: -Okay for diet -No further surgical intervention per podiatry -Left foot appears stable at bedside with resolution of cellulitis and pain after surgery. I believe that her elevated white count is of an unrelated etiology given the clinical appearance of the foot, the findings and surgery and the patient's history of rheumatologic disease and leukemia. -Patient okay to be discharged home on oral antibiotics -Prescription for oral Augmentin sent through to patient pharmacy x10 days -I will monitor ID and sensitivity from surgical cultures and will tailor patient's antibiotics accordingly -Is to minimize weightbearing to left lower extremity as tolerated in postop shoe. She is to keep dressings clean, dry, intact until her follow-up in the office later this week -Patient will follow-up with podiatry in the outpatient setting on 12/29/2022 at 9 AM. Appointment reminder card given to patient -Patient is okay to discharge from podiatry standpoint on oral antibiotics with close follow-up. Patient is also scheduled to follow-up with her PCP Dr. Morton tomorrow/07/09 Attestations Medical Necessity Statement*: Left foot infection with foreign body underwent surgery Coding Level of Care Code Acute Code for Chg Fwd Diagnoses Foreign body in left foot S90.852A Diabetes E11.9 Cellulitis L03.90 Leukocytosis D72.829
[2022-12-24] MEDS: insulin lispro 100 unit/1 mL SUBCUT (09:19)
--- NOTE | 2022-12-24 10:03 | P.DS_ITS ---
Discharge Providers Date of Admission: 12/22/22 19:59 Date of Discharge: December 24, 2022 Attending Provider at Admission: Clarice Santoyo MD Attending Provider at Discharge: Jesse Zee MD Primary Care Provider: Shaquille Zelaya Diagnoses at Discharge Discharge Diagnosis (1) Foreign body in left foot: Status: Acute (2) Diabetes: Status: Acute (3) Cellulitis: Status: Acute (4) Leukocytosis: Status: Acute Reason for Visit Reason for Visit: left foot pain/poss metal in it Hospital Course Hospital Course This is a 37-year-old female with a past medical history of diabetes, history of CLL hypertension, hyperlipidemia, who presents [facility] due to left foot pain. Patient presented to [facility] for left foot cellulitis, with findings of foreign body, status post foreign body removal surrounding an incision and drainage. She was receiving antibiotics, until morning of 12/24/2022, patient removed her IVs and wanted to leave the hospital. I had extensive discussion with her, I had recommended another day of IV antibiotics and monitoring, her white blood cell count has elevated, but looks more lymphocytic from her CLL. However we do need to follow cultures, blood cultures so far negative, discussed morbidity and mortality about leaving the hospital too soon. She voiced understanding, all questions answered, she refuses to stay in the hospital any longer, she will be discharged on 10 remaining days of Augmentin with close follow-up with Dr. Doll as outpatient Physical Exam Const: COMMON NORMALS: no acute distress and patient oriented x3 Resp: COMMON NORMALS: normal respiratory effort, No retractions, No use of accessory muscles and clear to auscultation bilaterally AUSCULTATION: clear to auscultation bilaterally Cardio: COMMON NORMALS: regular rate, regular rhythm, S1 normal heart sound present and S2 normal heart sound present RATE: regular rate RHYTHM: regular rhythm HEART SOUNDS: S1 normal heart sound present and S2 normal heart sound present GI: COMMON NORMALS: Normal to inspection, nondistended, normoactive bowel sounds present and non-tender Extremity: COMMON NORMALS: no pedal edema NARRATIVE EXTREMITY EXAM: Left foot in the boot Neuro: COMMON NORMALS: patient oriented x3 Psych: COMMON NORMALS: mental status grossly normal Discharge Data Studies Completed and Pending Completed Studies During Hospitalization Category Date Time Status XR foot LT min 3V* [id number] Stat Exams 12/22/22 16:57 Completed Pending at discharge Category Date Time Status C-arm Fluoroscopy [id number] Routine Exams 12/23/22 11:47 Stop Req Anaerobic Culture Routine Lab 12/23/22 13:08 Received Blood Culture Stat Lab 12/22/22 17:16 Results Vancomycin Trough Timed Lab 12/25/22 01:00 Ordered Wound Culture and Gram Stain Routine Lab 12/23/22 12:46 Results Radiology Impressions Foot X-Ray 12/22/22 16:57 IMPRESSION: Radiopaque foreign body in the plantar soft tissues overlying the 2nd metatarsal head. Laboratory Results WBC 23.5 10^3/uL (4.0-10.0) H 12/24/22 02:50 RBC 4.41 10^6/uL (4.1-5.3) 12/24/22 02:50 Hgb 11.9 g/dL (11.5-15.3) 12/24/22 02:50 Hct 39.4 % (37.0-47.0) 12/24/22 02:50 MCV 89.3 fl (81-99) 12/24/22 02:50 MCH 27.0 pg (28.0-34.0) L 12/24/22 02:50 MCHC 30.2 g/dL (30.0-36.0) 12/24/22 02:50 RDW 14.6 % (12.1-15.1) 12/24/22 02:50 Plt Count 261 10^3/cmm (130-400) 12/24/22 02:50 MPV 11.0 fL (7.4-10.4) H 12/24/22 02:50 Neut % (Auto) 22.8 % 12/24/22 02:50 Lymph % (Auto) 66.1 % 12/24/22 02:50 [place] % (Auto) 9.5 % 12/24/22 02:50 Eos % (Auto) 1.0 % 12/24/22 02:50 Baso % (Auto) 0.3 % 12/24/22 02:50 Neut # (Auto) 5.35 10^3/uL (1.8-7.7) 12/24/22 02:50 Lymph # (Auto) 15.6 10^3/uL (0.8-4.8) H 12/24/22 02:50 [place] # (Auto) 2.2 10^3/uL (0.2-0.9) H 12/24/22 02:50 Eos # (Auto) 0.2 10^3/uL (0.0-0.8) 12/24/22 02:50 Baso # (Auto) 0.1 10^3/uL (0.0-0.1) 12/24/22 02:50 Nucleated RBC % (auto) 0 % 12/24/22 02:50 Total Counted 100 (0-100) 12/23/22 01:55 Atypical Lymphs % 3.0 % (0-5) 12/23/22 01:55 Absolute Neutrophils 4.7 10^3/cmm (1.4-6.5) 12/23/22 01:55 Segmented Neutrophils 24 % 12/23/22 01:55 Abs Segm Neuts (Man) 4.7 10/cmm (1.6-7.1) 12/23/22 01:55 Band Neutrophils 0.0 % 12/23/22 01:55 Abs Band Neuts (Man) 0.0 10^3/cmm (0.0-1.2) 12/23/22 01:55 Absolute Lymphocytes 12.8 10^3/cmm (1.2-3.4) H 12/23/22 01:55 Lymphocytes (Manual) 63 % 12/23/22 01:55 Monocytes (Manual) 7.0 % 12/23/22 01:55 Absolute Monocytes 1.4 10^3/cmm (0.1-0.6) H 12/23/22 01:55 Eosinophils (Manual) 3 % 12/23/22 01:55 Absolute Eosinophils 0.5 10^3/cmm (0.0-0.7) 12/23/22 01:55 Basophils (Manual) 0.0 % 12/23/22 01:55 Absolute Basophils 0.0 10^3/cmm (0.0-0.2) 12/23/22 01:55 Nucleated RBCs # 0.0 /100WBC 12/24/22 02:50 Platelet Estimate Normal (Normal) 12/23/22 01:55 ESR 28 mm/hr (0-15) H 12/22/22 17:46 Sodium 134 mmol/L (136-145) L 12/24/22 02:50 Potassium 4.0 mmol/L (3.5-5.1) 12/24/22 02:50 Chloride 102 mmol/L (98-107) 12/24/22 02:50 Carbon Dioxide 23 mmol/L (22-29) 12/24/22 02:50 Anion Gap 13.0 (5-19) 12/24/22 02:50 BUN 11 mg/dL (8-23) 12/24/22 02:50 Creatinine 0.6 mg/dL (0.5-0.9) 12/24/22 02:50 GFR Calculation Not Reportable 12/24/22 02:50 Glucose 203 mg/dL (65-115) H 12/24/22 02:50 POC Glucose 168 mg/dL (70-110) H 12/24/22 06:36 Estimat Average Glucose 189 12/23/22 01:55 Hemoglobin A1c 8.2 % (4.0-6.0) H 12/23/22 01:55 Calculated Osmolality 283 mOsm/kg (285-295) L 12/24/22 02:50 Lactic Acid 2.9 mmol/L (0.5-2.2) H 12/23/22 01:55 Lactic Acid (Sepsis) 2.4 mmol/L (0.5-2.2) H 12/23/22 04:45 Calcium 8.9 mg/dL (8.5-10.5) 12/24/22 02:50 Magnesium 1.7 mg/dL (1.7-2.3) 12/24/22 02:50 Total Bilirubin 0.2 mg/dL (0.15-1.2) 12/24/22 02:50 AST 24 U/L (0-32) 12/24/22 02:50 ALT 27 U/L (0-33) 12/24/22 02:50 Alkaline Phosphatase 104 U/L (35-105) 12/24/22 02:50 C-Reactive Protein 46.9 mg/L (0.0-4.9) H 12/22/22 17:43 Total Protein 6.1 g/dL (6.6-8.7) L 12/24/22 02:50 Albumin 3.6 g/dL (3.5-5.2) 12/24/22 02:50 Globulin 2.5 g/dL (1.3-4.6) 12/24/22 02:50 Procalcitonin 0.09 ng/mL (0-0.5) 12/23/22 01:55 TSH 0.88 uIU/mL (0.27-4.20) 12/23/22 01:55 Vitals Last Vital Signs Temp 98 F 12/24/22 08:00 Pulse 92 12/24/22 08:00 Resp 15 12/24/22 08:00 BP 184/93 12/24/22 08:00 Pulse Ox 97 12/24/22 08:00 O2 Del Method 12/24/22 08:00 Discharge Plan Discharge Patient Disposition: Home Condition: Stable Prescriptions: New amoxicillin-pot clavulanate 875-125 mg tablet 1 tab PO Q12H Qty: 20 0RF Continued metformin 500 mg tablet See Rx Instructions .ROUTE .COMPLEX Rx Instructions: 1000mg po qam and 500mg po with supper pt states she just takes one tab bid trazodone 50 mg tablet 50 mg PO BEDTIME PRN (Reason: Sleep) hydrocodone-acetaminophen 5-325 mg tablet 1 tab PO Q4H PRN (Reason: Pain) lisinopril 20 mg tablet 20 mg PO BEDTIME aspirin [Aspir-81] 81 mg Tablet,Delayed Release (Dr/Ec) 81 mg PO Q7D omeprazole 20 mg capsule,delayed release(DR/EC) 20 mg PO DAILY atorvastatin 20 mg Tablet 20 mg PO DAILY allopurinol 100 mg Tablet 100 mg PO DAILY Discharge Orders: Discharge Order (Routine); Ordered 12/24/22 Ordered By: Jesse Zee Referrals: Shaquille Zelaya [Primary Care Provider] - Patient Instructions: Type 2 Diabetes, Amoxicillin/Clavulanate Potassium (By mouth) (Augmentin, Augmentin..., Cellulitis (ED), Incision and Drainage (DC) Discharge Attestations Time Spent in Discharge Care*: greater than 30 min Quality Metrics Clinical Quality Measures [ No reported AMI, CVA or VTE this stay] Coding Level of Care Code 33864 Total time (in minutes) for Discharge: 40 Diagnoses Foreign body in left foot S90.852A Diabetes E11.9 Cellulitis L03.90 Leukocytosis D72.829
[2022-12-24 10:53] VITALS: BP 184/93; PULSE 92; RESP 15; TEMP 36.6; O2SAT 97
== END 2022-12-24 10:45 | disposition home or self-care (01) | DRG 988 ==
LOC: ER 20:09 → MEDSURG 20:45
PROVIDERS: Podiatrist Foot & Ankle Surgery; Admitting Provider Internal Medicine; Emergency Provider Emergency Medicine; PCP Family Medicine; Visit Provider Family Medicine
PROC: 0JCR0ZZ Extirpation of Matter from Left Foot Subcutaneous Tissue and Fascia, Open Approach (ICD-10-PCS; principal; 2022-12-23 11:50)
DX: E11.628 Type 2 diabetes mellitus with other skin complications (principal); C91.10 Chronic lymphocytic leukemia of B-cell type not having achieved remission; L03.116 Cellulitis of left lower limb; L02.612 Cutaneous abscess of left foot; S91.342A Puncture wound with foreign body, left foot, initial encounter; X58.XXXA Exposure to other specified factors, initial encounter; I10 Essential (primary) hypertension; R70.0 Elevated erythrocyte sedimentation rate; R79.82 Elevated C-reactive protein (CRP); E78.5 Hyperlipidemia, unspecified; K21.9 Gastro-esophageal reflux disease without esophagitis; Z79.84 Long term (current) use of oral hypoglycemic drugs
CPT/HCPCS: 36415; 36416; 73630; 80053; 82962; 83036; 83605; 83735; 84145; 84443; 85007; 85025; 85651; 86140; 87040; 87070; 87075; 87077; 87186; 87205; 96365; 96367; 96372; 99285; C9113; J1644; J1815; J2270; J2543; J2704; J3010; J3370; J3490; J7030; J7040

== ENCOUNTER → 2022-12-29 08:40 | Outpatient (BNVA) | payer MEDICARE, OTHER, SELFPAY | PROVIDERS: PCP Family Medicine; Visit Provider Podiatrist Foot & Ankle Surgery | DX: E11.9 Type 2 diabetes mellitus without complications (principal); S90.852A Superficial foreign body, left foot, initial encounter; X58.XXXA Exposure to other specified factors, initial encounter; Z79.84 Long term (current) use of oral hypoglycemic drugs | CPT/HCPCS: 99024 ==

== ENCOUNTER → 2023-01-05 09:14 | Outpatient (BNVA) | payer MEDICARE, OTHER, SELFPAY | PROVIDERS: PCP Family Medicine; Visit Provider Podiatrist Foot & Ankle Surgery | DX: Z98.890 Other specified postprocedural states (principal); L97.522 Non-pressure chronic ulcer of other part of left foot with fat layer exposed | CPT/HCPCS: 99024 ==

== ENCOUNTER → 2023-01-12 10:28 | Outpatient (BNVA) | payer MEDICARE, OTHER, SELFPAY | PROVIDERS: PCP Family Medicine; Visit Provider Podiatrist Foot & Ankle Surgery | DX: L97.522 Non-pressure chronic ulcer of other part of left foot with fat layer exposed (principal); Z98.890 Other specified postprocedural states | CPT/HCPCS: 11042 ==

== ENCOUNTER → 2023-01-26 10:01 | Outpatient (BNVA) | payer MEDICARE, OTHER, SELFPAY | PROVIDERS: PCP Family Medicine; Visit Provider Podiatrist Foot & Ankle Surgery | DX: Z98.890 Other specified postprocedural states (principal); L97.522 Non-pressure chronic ulcer of other part of left foot with fat layer exposed | CPT/HCPCS: 99024 ==

== ENCOUNTER → 2023-02-09 09:36 | Outpatient (BNVA) | payer MEDICARE, OTHER, SELFPAY | PROVIDERS: PCP Family Medicine; Visit Provider Podiatrist Foot & Ankle Surgery | DX: Z98.890 Other specified postprocedural states (principal); L97.522 Non-pressure chronic ulcer of other part of left foot with fat layer exposed | CPT/HCPCS: 99213 ==

== ENCOUNTER → 2023-02-28 10:03 | Outpatient (BNVA) | payer MEDICARE, OTHER, SELFPAY | PROVIDERS: PCP Family Medicine; Visit Provider Podiatrist Foot & Ankle Surgery | DX: Z51.89 Encounter for other specified aftercare (principal); L97.522 Non-pressure chronic ulcer of other part of left foot with fat layer exposed | CPT/HCPCS: 99024 ==

== ENCOUNTER 2024-10-03 08:58 | Emergency (ER) | payer MEDICARE, SELFPAY ==
[2024-10-03 09:15] VITALS: BP 164/83; PULSE 86; RESP 17; TEMP 36.3; O2SAT 97; BMI 34.7
--- NOTE | 2024-10-03 09:27 | ED_ITS ---
HPI - Epistaxis General: Chief complaint: Epistaxis Stated complaint: nosebleed Time Seen by Provider: 10/03/24 09:06 Source: patient Mode of arrival: ambulatory Limitations: no limitations History of Present Illness: Patient is a 79-year-old female presents to ED today for evaluation of epistaxis. Patient states in the middle of the night her nose felt stuffy so she used intranasal saline. She states she woke up this morning around 6:30 AM and while bending over in the kitchen getting food for her cats, she noticed bleeding from her right nare. She states this has waxed and waned all morning. She states she did take her blood pressure this morning and systolics were over 190s. She took her morning blood pressure medications. Upon arrival she is 164/83. Patient states she has no prior history of nosebleeds. She is not on anticoagulation. No recent injury or trauma. No current bleeding upon arrival. MD complaint: epistaxis Location: right nostril Onset (ago): hour(s) Duration: intermittent Context: hypertension Associated symptoms: Reports no associated symptoms; Deny fever(s), headache(s), sinus pain or vomiting Related Data Home Medications Medication Instructions Recorded Confirmed hydrocodone 5 mg-acetaminophen 325 1 tab PO Q4H PRN Pain 04/17/20 10/03/24 mg tablet lisinopril 20 mg tablet 20 mg PO BEDTIME 04/17/20 10/03/24 metformin 500 mg tablet See Rx Instructions .Route .COMPLEX 04/17/20 10/03/24 omeprazole 20 mg capsule,delayed 20 mg PO DAILY 04/17/20 10/03/24 release allopurinol 100 mg tablet 100 mg PO DAILY 12/22/22 10/03/24 atorvastatin 20 mg tablet 20 mg PO DAILY 12/22/22 10/03/24 acetaminophen 500 mg tablet 500 mg PO Q6H PRN Pain 10/03/24 10/03/24 ascorbic acid (vitamin C) 500 mg 250 mg PO DAILY 10/03/24 10/03/24 tablet (Vitamin C) aspirin 81 mg tablet,delayed 81 mg PO Q7D 10/03/24 10/03/24 release collagen, hydrolyzed 1 1 tab PO DAILY 10/03/24 10/03/24 gram-ascorbate calcium 10 mg tablet Allergies Allergy/AdvReac Type Severity Reaction Status Date / Time No Known Allergies Allergy Verified 02/28/23 10:07 Review of Systems Const: Denies: fever(s) ENMT: Reports: nasal congestion and epistaxis; Denies: sinus pain GI: Denies: nausea or vomiting Neuro: Denies: headache(s) PFSH ED PFSH: Medical History Diabetes Physical Exam Const: COMMON NORMALS: no acute distress, patient oriented x3, no limitations, alert and well nourished GENERAL APPEARANCE: cooperative HENMT: FACE & SINUS: normal facial exam NOSE: No nasal polyps present, Normal septum present and Epistaxis present (dried blood R nare; no active bleeding) MOUTH: Normal oral and palatal mucosa present and lip normal THROAT: posterior oropharynx normal and tonsils normal Neuro: COMMON NORMALS: patient oriented x3 SENSORIUM/ORIENTATION: Yes alert Course Vital Signs: Vital signs: Vital Signs Temperature 97.4 F L 10/03/24 09:15 Pulse Rate 86 10/03/24 09:15 Respiratory Rate 17 10/03/24 09:15 Blood Pressure 164/83 10/03/24 09:15 Pulse Oximetry 97 10/03/24 09:15 Oxygen Delivery Me thod Room Air 10/03/24 09:15 MDM - Epistaxis Medical Decision Making Applied Afrin/nasal clamp x 15-20 mins. This was then removed and patient watched for >30 mins without bleeding resuming. She will be sent home with clamp in case bleeding begins again at home. At time of discharge and my last encounter with patient, her blood pressure is 130s/80s. Discussed avoiding bending over, straining, coughing/sneezing, blowing nose, etc. Return precautions discussed. Differential Diagnosis Likely anterior epistaxis No radiology studies performed this visit Discharge Plan Discharge Patient Disposition: Home Clinical Impression: Anterior epistaxis Condition: Stable Prescriptions: No Action metformin 500 mg tablet See Rx Instructions .ROUTE .COMPLEX Rx Instructions: Take 1000mg by mouth in the am and 500mg with supper. hydrocodone-acetaminophen 5-325 mg tablet 1 tab PO Q4H PRN (Reason: Pain) lisinopril 20 mg tablet 20 mg PO BEDTIME omeprazole 20 mg capsule,delayed release(DR/EC) 20 mg PO DAILY aspirin [Aspir-81] 81 mg Tablet,Delayed Release (Dr/Ec) 81 mg PO Q7D acetaminophen 500 mg Tablet 500 mg PO Q6H PRN (Reason: Pain) ascorbic acid (vitamin C) [Vitamin C] 500 mg Tablet 250 mg PO DAILY collagen,hydrolyz-ascorbate Ca 1 gram- 10 mg Tablet 1 tab PO DAILY atorvastatin 20 mg Tablet 20 mg PO DAILY allopurinol 100 mg Tablet 100 mg PO DAILY Discharge Orders: Discharge ED (Routine); Ordered 10/03/24 Ordered By: Sofia Saleh Patient Instructions: Nosebleed (ED), Epistaxis - Adult Activity Restrictions/Additional Instructions: As we discussed, avoid bending over, straining, sneezing/coughing, etc as this could cause your nosebleed to resume. If bleeding does start again, administer 2 sprays of Afrin no spray to the right nare and placed nasal clamp x 20 minutes. If you are unable to control bleeding at home, you may return to the emergency department for further evaluation. Coding Level of Care Code ED Display Screen Fabricator for Mary Mckeon
[2024-10-03] MEDS: oxymetazoline 0.05% Nasal Spray 15 mL 2 SPRAY NOSTRIL-R (09:47)
[2024-10-03 11:00] VITALS: BP 132/72; PULSE 81; O2SAT 92
== END 2024-10-03 11:02 | disposition home or self-care (01) ==
PROVIDERS: Emergency Provider Physician Assistant
DX: R04.0 Epistaxis (principal); Z79.82 Long term (current) use of aspirin; E11.9 Type 2 diabetes mellitus without complications
CPT/HCPCS: 99283

== ENCOUNTER 2024-11-06 10:45 | Emergency (ER) | payer MEDICARE, SELFPAY ==
[2024-11-06 10:46] VITALS: BP 131/69; PULSE 80; RESP 17; TEMP 36.6; O2SAT 97; BMI 34.7
--- NOTE | 2024-11-06 11:01 | ECG_ITS ---
[facility] Test Date: 2024-11-06 Pat Name: Crissy Santoro Department: Room: Gender: Female Associate Dean [employer]: : 1945 Requested By: Jo Diaz Order Number: [id number] Joyce MD: Efrain Lock M.D. Measurements Intervals [place] Rate: 75 P: 49 ID: [id number] QRS: 30 QRSD: 81 T: 39 QT: 393 QTc: 441 Interpretive Statements SINUS RHYTHM Compared to ECG 02/04/2015 01:18:43 No significant changes Electronically Signed On 11-06-2024 17:50:35 [employer] by Efrain Lock M.D. [email or web address]
--- NOTE | 2024-11-06 11:02 | XR_ITS ---
WS: [id number] Exam: XR chest 1V portable [id number] Date/Time of Exam: 11/06/2024 11:22 AM Reason For Exam: hypertension Comparison 02/04/2015. Lungs are fully expanded and clear. Heart size top limits normal. The mediastinum is normal in contour. No pleural effusions. Rotator cuff anchoring screws in the LEFT humeral head. Degenerative changes of the RIGHT shoulder. XR/XR chest 1V portable [id number] IMPRESSION: 1. No acute cardiopulmonary finding.
--- NOTE | 2024-11-06 11:02 | W.ED.GENADLT ---
HPI - General Adult General: Chief complaint: General Medical Stated complaint: blood pressure concern. anxiety Time Seen by Provider: 11/06/24 10:45 History of Present Illness: This is a 79-year-old female with history of hypertension and obesity and diabetes who presents the emergency room by ambulance with a complaint of hypertension. She says her blood pressure was almost 200 this morning. EMS initially reported a systolic of 160. By the time she arrives here it is in the 120s and 130s. She has had no chest pain. No headaches. No altered mental status. No focal motor deficits. No vision changes. She called her PCP who she reports told her to go to the emergency room to rule out a heart attack. She is being treated for hypertension. It seems her pressures are higher in the morning. She says she has been having a lot of stress and anxiety. Related Data Home Medications ?Medication ?Instructions ?Recorded ?Confirmed metformin 500 mg tablet See Rx Instructions .Route .COMPLEX 04/17/20 11/06/24 omeprazole 20 mg capsule,delayed 20 mg PO DAILY 04/17/20 11/06/24 release allopurinol 100 mg tablet 100 mg PO DAILY 12/22/22 11/06/24 atorvastatin 20 mg tablet 20 mg PO DAILY 12/22/22 11/06/24 acetaminophen 500 mg tablet 500 mg PO Q6H PRN Pain 10/03/24 11/06/24 ascorbic acid (vitamin C) 500 mg 250 mg PO DAILY 10/03/24 11/06/24 tablet (Vitamin C) aspirin 81 mg tablet,delayed 81 mg PO Q7D 10/03/24 11/06/24 release amlodipine 2.5 mg tablet 2.5 mg PO DAILY 11/06/24 11/06/24 lisinopril 40 mg tablet 40 mg PO DAILY 11/06/24 11/06/24 Allergies Allergy/AdvReac Type Severity Reaction Status Date / Time No Known Allergies Allergy Verified 02/28/23 10:07 Review of Systems Narrative: Constitutional symptoms: Negative except as documented in HPI. Skin symptoms: Negative except as documented in HPI. Eye symptoms: Negative except as documented in HPI. ENMT symptoms: Negative except as documented in HPI. Respiratory symptoms: Negative except as documented in HPI. Cardiovascular symptoms: Negative except as documented in HPI. Gastrointestinal symptoms: Negative except as documented in HPI. Genitourinary symptoms: Negative except as documented in HPI. Musculoskeletal symptoms: Negative except as documented in HPI. Neurologic symptoms: Negative except as documented in HPI. Psychiatric symptoms: Negative except as documented in HPI. Endocrine symptoms: Negative except as documented in HPI. [facility], [facility] ED PFSH: Medical History Diabetes Physical Exam Narrative: EXAM NARRATIVE: General: Alert, no acute distress. Skin: Warm, dry. Head: Normocephalic, atraumatic. Neck: Supple, trachea midline. Eye: Extraocular movements are intact. Ears, nose, mouth and throat: mucosa moist. Cardiovascular: Regular, Normal peripheral perfusion. Respiratory: Lungs are clear to auscultation, respirations are non-labored, breath sounds are equal, Symmetrical chest wall expansion. Gastrointestinal: Soft, Nontender, Non distended Musculoskeletal: Normal ROM, no deformity. Neurological: Alert and oriented, No focal neurological deficit observed. Psychiatric: Cooperative, appropriate mood & affect. Course Vital Signs: Vital signs: Vital Signs Temperature 97.8 F 11/06/24 10:46 Pulse Rate 80 11/06/24 10:46 Respiratory Rate 17 11/06/24 10:46 Blood Pressure 143/48 11/06/24 12:30 Pulse Oximetry 94 11/06/24 12:30 [facility] - General Adult Medical Decision Making Medical decision making: Differential diagnosis including but not limited to and based on the above HPI, review of systems and physical exam: Patient presents with hypertension: Essential hypertension. Stroke. acute coronary syndrome. kidney failure. congestive heart failure. anxiety Orders placed to evaluate differential diagnosis based on the above differential, HPI and physical exam EKG: Time 1101. Rate 75. Normal sinus rhythm, No ST-T changes, no ectopy, normal WA & QRS intervals, This was reviewed and interpreted by myself the ER physician at 11:06 AM. Chest x-ray: No acute process. No infiltrate. No pneumothorax. This was reviewed and interpreted by myself the emergency room physician. I also reviewed the radiology report. Lab Review: Laboratory results were reviewed and interpreted by myself the emergency room physician. Patient has significant leukocytosis with a white count of 44,000. She normally runs between 20,000 and 25,000. I reviewed the patient's medical record. Reexamination: Patient remained stable. No increased work of breathing. No altered mental status. No focal motor deficits. Patient says she is quite ready to go home. Consultation. I spoke with Dr. Quesada with the oncology service here. Nothing needs done acutely but the patient does need to follow-up with her radio time buyer in [place] in the very near future. Assessment and plan: Hypertension CLL ? Blood pressures been quite well-controlled here in the emergency room. She needs to follow with her primary care provider. Her white count is elevated over her norm. She has known CLL. She will follow with her radio time buyer/oncologist in [place] in the very near future. - Discharged home - Discussed plan with patient. Answered any questions. - Evaluation and treatment of this problem were appropriate in the emergency setting. Lab Data 11/06/24 11:07 11/06/24 11:07 Radiology Impressions Chest X-Ray 11/06/24 11:02 IMPRESSION: 1. No acute cardiopulmonary finding. Laboratory Results WBC 44.34 10^3/uL (3.29-11.43) H* 11/06/24 11:07 RBC 4.71 10^6/uL (3.85-5.65) 11/06/24 11:07 Hgb 12.90 g/dL (11.27-16.99) 11/06/24 11:07 Hct 41.7 % (36-47) 11/06/24 11:07 MCV 88.5 fl (85-98) 11/06/24 11:07 MCH 27.4 pg (27-33) 11/06/24 11:07 MCHC 30.9 g/dL (30-55) 11/06/24 11:07 RDW 15.1 % (12.1-15.1) 11/06/24 11:07 Plt Count 236 10^3/cmm (157-399) 11/06/24 11:07 MPV 10.7 fL (7.4-10.4) H 11/06/24 11:07 Neut % (Auto) 14.7 % 11/06/24 11:07 Lymph % (Auto) 80.8 % 11/06/24 11:07 [place] % (Auto) 3.7 % 11/06/24 11:07 Eos % (Auto) 0.4 % 11/06/24 11:07 Baso % (Auto) 0.1 % 11/06/24 11:07 Neut # (Auto) 6.53 10^3/uL (1.8-7.7) 11/06/24 11:07 Lymph # (Auto) 35.8 10^3/uL (0.8-4.8) H 11/06/24 11:07 [place] # (Auto) 1.6 10^3/uL (0.2-0.9) H 11/06/24 11:07 Eos # (Auto) 0.2 10^3/uL (0.0-0.8) 11/06/24 11:07 Baso # (Auto) 0.1 10^3/uL (0.0-0.1) 11/06/24 11:07 Nucleated RBC % (auto) 0 % 11/06/24 11:07 Nucleated RBCs # 0.0 /100WBC 11/06/24 11:07 Sodium 140 mmol/L (136-145) 11/06/24 11:07 Potassium 4.4 mmol/L (3.5-5.1) 11/06/24 11:07 Chloride 100 mmol/L (98-107) 11/06/24 11:07 Carbon Dioxide 26 mmol/L (22-29) 11/06/24 11:07 Anion Gap 18.4 (5-19) 11/06/24 11:07 BUN 20 mg/dL (8-23) 11/06/24 11:07 Creatinine 0.7 mg/dL (0.5-0.9) 11/06/24 11:07 GFR Calculation Not Reportable 11/06/24 11:07 Glucose 164 mg/dL (65-115) H 11/06/24 11:07 Calculated Osmolality 296 mOsm/kg (285-295) H 11/06/24 11:07 Calcium 9.7 mg/dL (8.5-10.5) 11/06/24 11:07 Total Bilirubin 0.4 mg/dL (0.15-1.2) 11/06/24 11:07 AST 17 U/L (0-32) 11/06/24 11:07 ALT 21 U/L (0-33) 11/06/24 11:07 Alkaline Phosphatase 122 U/L (35-105) H 11/06/24 11:07 Troponin T Baseline 13 ng/L (0-10) H 11/06/24 11:07 NT-Pro-B Natriuret Pep 107 pg/mL (0-450) 11/06/24 11:07 Total Protein 7.0 g/dL (6.6-8.7) 11/06/24 11:07 Albumin 4.3 g/dL (3.5-5.2) 11/06/24 11:07 Globulin 2.7 g/dL (1.3-4.6) 11/06/24 11:07 Urine Color Yellow (Yellow) 11/06/24 11:42 Urine Appearance Cloudy (CLEAR) A 11/06/24 11:42 Urine pH 7.0 (5-7) 11/06/24 11:42 Ur Specific [place] 1.015 (1.005-1.030) 11/06/24 11:42 Urine Protein Negative (Negative) 11/06/24 11:42 Urine Glucose (UA) Negative (Normal) 11/06/24 11:42 Urine Ketones Negative (Negative) 11/06/24 11:42 Urine Blood Negative (Negative) 11/06/24 11:42 Urine Nitrate Negative (Negative) 11/06/24 11:42 Urine Bilirubin Negative (Negative) 11/06/24 11:42 Urine Urobilinogen 0.2 mg/dL (Negative) 11/06/24 11:42 Ur Leukocyte Esterase Negative (Negative) 11/06/24 11:42 Amorphous Sediment Not Reportable 11/06/24 11:42 All radiology interpretation(s) finalized by discharge Discharge Plan Discharge Patient Disposition: Home Clinical Impression: HTN (hypertension), CLL (chronic lymphocytic leukemia) Condition: Stable Prescriptions: No Action metformin 500 mg tablet See Rx Instructions .ROUTE .COMPLEX Rx Instructions: Take 1000mg by mouth in the am and 500mg with supper. omeprazole 20 mg capsule,delayed release(DR/EC) 20 mg PO DAILY aspirin [Aspir-81] 81 mg Tablet,Delayed Release (Dr/Ec) 81 mg PO Q7D acetaminophen 500 mg Tablet 500 mg PO Q6H PRN (Reason: Pain) ascorbic acid (vitamin C) [Vitamin C] 500 mg Tablet 250 mg PO DAILY lisinopril 40 mg tablet 40 mg PO DAILY amlodipine 2.5 mg tablet 2.5 mg PO DAILY atorvastatin 20 mg Tablet 20 mg PO DAILY allopurinol 100 mg Tablet 100 mg PO DAILY Discharge Orders: Discharge ED (Routine); Ordered 11/06/24 Ordered By: Jo Mojica Discharge Diet: Usual diet Discharge Activity: Increase activity as tolerated Patient Instructions: Hypertension (ED), Opioid Safety, Pain Management Activity Restrictions/Additional Instructions: You need to follow-up with your radio time buyer/oncologist concerning your elevated white blood cell count related to your CLL in the next week or 2. Thank you for choosing [facility] for your healthcare needs today. Please realize this is an emergency room and that we are providing you with a medical screening exam and this may not be complete and all inclusive of all the testing and or work up that you may need to determine your ailment or severity of your illness. You have been screened and evaluated and felt safe for discharge. Health conditions do change or evolve sometimes and as such it is important that you follow up with your Primary Doctor to be re checked, 3-5 days is a general good time frame for follow up. You are always welcome to return to the ED for re assessment if your symptoms are worsening or you have new concerns Print Language: Nepali Coding Level of Care Code ED Management Engineer for Mary Mckeon
[2024-11-06 11:19] LABS: Basophils # 0.1 10^3/uL (0.0-0.1); Basophils % 0.1 %; Eosinophils # 0.2 10^3/uL (0.0-0.8); Eosinophils % 0.4 %; Hematocrit 41.7 % (36-47); Lymphocytes # 35.8 10^3/uL (0.8-4.8); Lymphocytes % 80.8 %; Mean Corpuscular HGB Conc 30.9 g/dL (30-55); Mean Corpuscular Hemoglobin 27.4 pg (27-33); Mean Corpuscular Volume 88.5 fl (85-98); Mean Platelet Volume 10.7 fL (7.4-10.4); Monocytes # 1.6 10^3/uL (0.2-0.9); Monocytes % 3.7 %; Neutrophils # 6.53 10^3/uL (1.8-7.7); Neutrophils % 14.7 %; Nucleated Red Blood Cells % 0 %; Platelet Count 236 10^3/cmm (157-399); Red Blood Count 4.71 10^6/uL (3.85-5.65); Red Cell Distribution Width 15.1 % (12.1-15.1)
[2024-11-06 11:20] VITALS: BP 132/59; O2SAT 93
[2024-11-06 11:30] VITALS: BP 120/53; O2SAT 98
[2024-11-06 11:40] LABS: Troponin(5th) Baseline 13 ng/L (0-10)
[2024-11-06 11:51] LABS: Alanine Aminotransferase 21 U/L (0-33); Albumin Level 4.3 g/dL (3.5-5.2); Alkaline Phosphatase 122 U/L (35-105); Anion Gap 18.4 (5-19); Aspartate Amino Transferase 17 U/L (0-32); Blood Urea Nitrogen 20 mg/dL (8-23); Calcium 9.7 mg/dL (8.5-10.5); Carbon Dioxide 26 mmol/L (22-29); Chloride 100 mmol/L (98-107); Creatinine Clr Calc Pharmacy 61.3018; Globulin 2.7 g/dL (1.3-4.6); Glucose 164 mg/dL (65-115); NT Pro B Type Natriuretic Pept 107 pg/mL (0-450); Osmolality Calculated 296 mOsm/kg (285-295); Potassium 4.4 mmol/L (3.5-5.1); Sodium 140 mmol/L (136-145); Total Bilirubin 0.4 mg/dL (0.15-1.2)
[2024-11-06 12:00] VITALS: BP 124/55; O2SAT 95
[2024-11-06 12:10] LABS: White Blood Count 44.34 10^3/uL (3.29-11.43)
[2024-11-06 12:13] LABS: Slide Review Slide Review Perform
[2024-11-06 12:30] VITALS: BP 143/48; O2SAT 94
[2024-11-06 12:35] LABS: Bilirubin Urine Negative (Negative); Blood Urine Negative (Negative); Glucose Urine UA Negative (Normal); Ketones Urine Negative (Negative); Leukocyte Esterase Urine Negative (Negative); Nitrate Urine Negative (Negative); Protein Urine Negative (Negative); Specific Gravity, Urine 1.015 (1.005-1.030); Urine Appearance Cloudy (CLEAR); Urine Color Yellow (Yellow); Urobilinogen Urine 0.2 mg/dL (Negative)
[2024-11-06 13:03] VITALS: BP 143/48; PULSE 81; O2SAT 97
[2024-11-06 13:03] LABS: UA Manual Slide Review YES; UA Slide Review UA Slide Review Perf
[2024-11-06 13:15] LABS: Add Urine Culture? No; Bacteria Urine TRACE /hpf; RBC Urine 0-4 /hpf (0-2); Squamous Epithelial Cell Urine 0-4 /hpf (0-5)
== END 2024-11-06 13:05 | disposition home or self-care (01) ==
PROVIDERS: Emergency Provider Emergency Medicine
DX: I10 Essential (primary) hypertension (principal); C91.10 Chronic lymphocytic leukemia of B-cell type not having achieved remission; Z79.84 Long term (current) use of oral hypoglycemic drugs; Z79.82 Long term (current) use of aspirin
CPT/HCPCS: 36415; 71045; 80053; 81001; 83880; 84484; 85025; 93005; 99285

== ENCOUNTER 2025-03-21 05:32 | Emergency (ER) | payer MEDICARE, OTHER, SELFPAY ==
[2025-03-21 05:34] VITALS: BP 172/80; PULSE 85; RESP 16; O2SAT 96; BMI 33.6
--- NOTE | 2025-03-21 05:39 | CTR_ITS ---
PROCEDURE INFORMATION: Exam: CT Head Without Contrast Exam date and time: 03/21/2025 5:51 AM Age: 80 years old Clinical indication: Injury or trauma; Fall; Blunt trauma (contusions or hematomas) TECHNIQUE: Imaging protocol: Computed tomography of the head without contrast. Radiation optimization: All CT scans at this facility use at least one of these dose optimization techniques: automated exposure control; mA and/or kV adjustment per patient size (includes targeted exams where dose is matched to clinical indication); or iterative reconstruction. COMPARISON: No relevant prior studies available. RADIATION DOSE METRICS: Total DLP (mGy-cm): 1036.58 FINDINGS: Brain: There is mild small vessel disease. Coarse linear calcifications are seen in the jhonathan just to the left of midline which were described in the 02/04/2015 report. There is no evidence of acute parenchymal hemorrhage, extra-axial collection, or acute infarction. There is no mass effect, midline shift, or downward herniation. Cerebral ventricles: No ventriculomegaly. Paranasal sinuses: Visualized sinuses are unremarkable. No fluid levels. Mastoid air cells: Visualized mastoid air cells are well aerated. Bones: Unremarkable. No acute fracture. Soft tissues: Unremarkable. CT/CT head wo con* [id number] IMPRESSION: Mild small vessel disease. No evidence of acute intracranial process.
--- NOTE | 2025-03-21 05:39 | CTR_ITS ---
PROCEDURE INFORMATION: Exam: CT Cervical Spine Without Contrast Exam date and time: 03/21/2025 5:54 AM Age: 80 years old Clinical indication: Injury or trauma; Fall; Blunt trauma TECHNIQUE: Imaging protocol: Computed tomography of the cervical spine without contrast. Radiation optimization: All CT scans at this facility use at least one of these dose optimization techniques: automated exposure control; mA and/or kV adjustment per patient size (includes targeted exams where dose is matched to clinical indication); or iterative reconstruction. COMPARISON: CT head wo con* [id number] 03/21/2025 5:51 AM RADIATION DOSE METRICS: Total DLP (mGy-cm): 159.47 FINDINGS: Bones/joints: There is a minimally displaced type 2 odontoid process fracture. There is grade 1 anterolisthesis of C3 on C4 and C4 on C5. Otherwise alignment is maintained. The vertebral body heights are maintained. There is advanced degenerative disc disease at C5-C6 and C6-C7. There is mild multilevel spinal canal stenosis secondary to disc osteophyte bulging. Lungs: Lung apices are normal. Soft tissues: Unremarkable. CT/CT cervical spin wo con* [id number] IMPRESSION: Minimally displaced type 2 odontoid process fracture.
--- OUTSIDE RECORDS SUMMARY | 2025-03-21 05:41 | XMS_ITS | Encounter Summary ---
Author Organization [facility] Address [address] [place] [address] Care Team Providers Care Laminator Name Role Phone Shaquille Zelaya MD Primary Care Provider Encounter Details Date Type Department Care Team (Latest Contact Info) Description 12/24/2001 Outpatient Historical [facility] [address] [place] [address] Saul Bah, OD [address] [place] [address] SUBJECTIVE VISUAL DISTURB NOS (Primary Dx); MYOPIA Social History Tobacco Use Types Packs/Day Years Used Date Smoking Tobacco: Never Assessed Comments Unknown Sex and Gender Information Value Date Recorded Sex Assigned at Not on file 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
--- OUTSIDE RECORDS SUMMARY | 2025-03-21 05:41 | XMS_ITS | Encounter Summary ---
Author Organization [facility] Address [address] [place] [address] Care Team Providers Care Compliance Assistant Name Role Phone Shaquille Zelaya MD Primary Care Provider [phone] Encounter Details Date Type Department Care Team (Latest Contact Info) Description 10/07/2018 Ancillary Orders [facility] [address] [place] [address] Shaquille Zelaya MD [address] [place] [address] Visit for screening mammogram Social History Tobacco Use Types Packs/Day Years Used Date Smoking Tobacco: Never Smokeless Tobacco: Never Alcohol Use Standard Drinks/Week Comments No 0 (1 standard drink = 0.6 oz pur e alcohol) Comments No Sex and Gender Information Value Date Recorded Sex Assigned at Not on file Legal Sex Female 5:11 AM EXERCISE SCIENCE INTERNSHIP Gender Identity Not on file Sexual Orientation Not on file Occupation Industry Job Start Date Job End Date Not on file Not on file Not on file Not on file documented as of this encounter Plan of Treatment Not on file documented as of this encounter Visit Diagnoses Diagnosis Visit for screening mammogram Other screening mammogram documented in this encounter Additional Health Concerns Assessment Noted Time PHQ-9 Depression Total Score: 2 08/27/20 17 9:00 PM EXERCISE SCIENCE INTERNSHIP documented as of this encounter Care Teams Compliance Assistant Relationship Specialty Start Date End Date Shaquille Zelaya MD [address] [place] [address] PCP - General Family Practice 03/22/15 documented as of this encounter
--- OUTSIDE RECORDS SUMMARY | 2025-03-21 05:41 | XMS_ITS | Encounter Summary ---
Author Organization [facility] Address [address] [place] [address] Care Team Providers Care Fur Cutting Machine Operator Name Role Phone Shaquille Zelaya MD Primary Care Provider [phone] Encounter Details Date Type Department Care Team (Latest Contact Info) Description 01/29/[address] 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
--- OUTSIDE RECORDS SUMMARY | 2025-03-21 05:41 | XMS_ITS | Encounter Summary ---
Author Organization [employer] [facility] Address [address] [place] [address] Care Team Providers Care Operator Ground Based Air Defence Name Role Phone Shaquille Zelaya MD Primary Care Provider [phone] Reason for Referral * Outpatient Services (Routine) - Closed Specialty Diagnoses / Procedures Referred By Contac t Referred To Contact Diagnoses Other screening mammogram Procedures MAMMO DIGITAL SCREEN BILAT MOBILE Martín Moya MD [address] [place] [address] Phone: tel: fax: Referral ID Status Reason Start Date Expiration Date Visits Re quested Visits Authorized [id number] Closed 08/13/2013 09/13/2014 1 1 ER AND B[facility]ER Encounter Details Date Type Department Care Team (Latest Contact Info) Description 08/13/2013 Ancillary Orders [facility] [address] [phone] Martín Moya MD [address] [place] [phone] Other screening mammogram (Primary Dx) Social History Tobacco Use Types Packs/Day Years Used Date Smoking Tobacco: Never Smokeless Tobacco: Never Alcohol Use Standard Drinks/Week Comments No 0 (1 standard drink = 0.6 oz pur e alcohol) Comments No Sex and Gender Information Value Date Recorded Sex Assigned at Not on file Legal Sex Female 5:11 AM DIPPER AND BAKER Gender Identity Not on file Sexual Orientation Not on file Occupation Industry Job Start Date Job End Date Not on file Not on file Not on file Not on file documented as of this encounter Plan of Treatment Not on file documented as of this encounter Results * MAMMO DIGITAL SCREEN BILAT MOBILE (08/28/2013 10:10 AM DIPPER AND BAKER) Anatomical Region Laterality Modality Breast Bilateral Mammography Narrative 08/31/2013 8:59 PM DIPPER AND BAKER Bilateral Mammogram Reason for Exam: Screening Comparison: Compared to: 08/06/2012 MAMMO DIGITAL SCREEN BILAT MOBILE, 11/26/2007 MAMMO DIGITIZED STUDY, 05/07/2006 MAMMO DIGITIZED STUDY Findings: Bilateral CC and MLO views were obtained. This examination was reviewed with the aid of a computer-aided detection system(CAD). The breast tissue density is average. No significant new findings since the prior mammogram(s). Procedure Note Ashwin Laws MD - 08/31/2013 Bilateral Mammogram Reason for Exam: Screening Comparison: Compared to: 08/06/2012 MAMMO DIGITAL SCREEN BILAT MOBILE,11/26/2007 MAMMO DIGITIZED STUDY, 05/07/2006 MAMMO DIGITIZED STUDY Findings: Bilateral CC and MLO views were obtained. This examination was reviewed with the aid of a computer-aided detectionsystem(CAD). The breast tissue density is average. No significant new findings since the prior mammogram(s). us Martín Moya MD MAMMO ORDERABLES Final Resul t documented in this encounter Visit Diagnoses Diagnosis Other screening mammogram- Primary Other screening mammogram documented in this encounter Care Teams Operator Ground Based Air Defence Relationship Specialty Start Date End Date Shaquille Zelaya MD [address] [place] [address] PCP - General Family Practice 03/22/15 documented as of this encounter
--- OUTSIDE RECORDS SUMMARY | 2025-03-21 05:41 | XMS_ITS | Encounter Summary ---
Author Organization [employer] [facility] Address [address] [place] [address] Care Team Providers Care Financial Business Analyst Name Role Phone Shaquille Zelaya MD Primary Care Provider [phone] Encounter Details Date Type Department Care Team (Latest Contact Info) Description 02/23/2021 Ancillary Orders [facility] [place] [address] [place] [address] Shaquille Zelaya MD [address] [place] [address] Visit for screening mammogram Social History Tobacco Use Types Packs/Day Years Used Date Smoking Tobacco: Never Smokeless Tobacco: Never Alcohol Use Standard Drinks/Week Comments No 0 (1 standard drink = 0.6 oz pur e alcohol) Comments No Sex and Gender Information Value Date Recorded Sex Assigned at Not on file 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 No / Unsure 02/03/2021 9:34 AM CDT documented as of this encounter Plan of Treatment Not on file documented as of this encounter Visit Diagnoses Diagnosis Visit for screening mammogram Other screening mammogram documented in this encounter Care Teams Financial Business Analyst Relationship Specialty Start Date End Date Shaquille Zelaya MD [address] [place] [address] PCP - General Family Practice 03/22/15 documented as of this encounter
--- OUTSIDE RECORDS SUMMARY | 2025-03-21 05:41 | XMS_ITS | Encounter Summary ---
Author Organization [facility] Address [address] [place] [address] Care Team Providers Care Cv Tech Name Role Phone Shaquille Zelaya MD Primary Care Provider [phone] Encounter Details Date Type Department Care Team (Latest Contact Info) Description 03/17/2005 Outpatient Historical [facility] [place] [address] [place] [phone] Jazmyn Hopkins MD [address] [place] [phone] HYPERTENSION NOS (Primary Dx) Social History Tobacco Use Types Packs/Day Years Used Date Smoking Tobacco: Never Assessed Comments Unknown Sex and Gender Information Value Date Recorded Sex Assigned at Not on file 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
--- OUTSIDE RECORDS SUMMARY | 2025-03-21 05:41 | XMS_ITS | Encounter Summary ---
Author Organization [facility] Address [address] [place] [address] Care Team Providers Care Rivet Tester Name Role Phone Shaquille Zelaya MD Primary Care Provider [phone] Encounter Details Date Type Department Care Team (Latest Contact Info) Description 01/29/2008 Outpatient Historical [facility] [address] 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 Technique: Proton density sagittal, T1 coronal, T2 fat-sat sagittal and axial, STIR coronal. Comparison: None. Findings: The ACL, PCL, and LCL complex are intact. There is mild thinning and surface irregularity involving the articular cartilage of the apex of the patella identified. A small dissecting popliteal cyst is present. The extensor mechanism is intact. Partial thickness tear involving the anterior aspect of the femoral aspect of the superficial band of the medial collateral ligament is identified. Moderate amount of edema superficial and deep to the femoral aspect of the superficial vein of the medial collateral ligament is present. Mild tricompartmental marginal osteophyte formation is present. Complex tear involving the medial aspect of the posterior horn of the lateral meniscus is identified. Myxoid degeneration of the body and posterior junction of the medial meniscus is identified. No unequivocal grade III medial meniscal signal to suggest a definite arthroscopically visible medial meniscal tear is identified. Mild thinning and surface irregularity involving the articular cartilage of the weight-bearing portion of the medial femoral condyle is present. Impression: 1. Grade II sprain of the femoral aspect of the superficial band of the medial collateral ligament. 2. Mild tricompartmental degenerative change with myxoid degeneration versus contusion of the body and posterior junction of the medial meniscus. 3. Probable complex tear involving the medial aspect of the posterior horn of the lateral meniscus. 4. Small dissecting popliteal cyst. 5. Mild chondromalacia of the apex of the patella and of the weight bearing proportion of of the medial femoral condyle. Dictated By: Nacho Luna M.D. Electronically Signed By: Nacho Luna M.D. Date Signed: 02/03/08 [facility] Procedure Note Álvaro Luna - 02/03/2008 Exam: MRI - Knee LT w/o Date/Time of Exam: February 03, 2008 11:57:54 AM History: R/O MMT. Technique: Proton density sagittal, T1 coronal, T2 fat-sat sagittal andaxial, STIR coronal. Comparison: None. Findings: The ACL, PCL, and LCL complex are intact. There is mild thinningand surface irregularity involving the articular cartilage of the apex of the patella identified. Asmall dissecting popliteal cyst is present. The extensor mechanism is intact. Partial thickness tearinvolving the anterior aspect of the femoral aspect of the superficial band of the medial collateralligament is identified. Moderate amount of edema superficial and deep to the femoral aspect of thesuperficial vein of the medial collateral ligament is present. Mild tricompartmental marginal osteophyteformation is present. Complex tear involving the medial aspect of the posterior horn of the lateralmeniscus is identified. Myxoid degeneration of the body and posterior junction of the medial meniscus isidentified. No unequivocal grade III medial meniscal signal to suggest a definite arthroscopicallyvisible medial meniscal tear is identified. Mild thinning and surface irregularity involving the articularcartilage of the weight-bearing portion of the medial femoral condyle is present. Impression: 1. Grade II sprain of the femoral aspect of the superficial band of themedial collateral ligament. 2. Mild tricompartmental degenerative change with myxoid degenerationversus contusion of the body and posterior junction of the medial meniscus. 3. Probable complex tear involving the medial aspect of the posterior hornof the lateral meniscus. 4. Small dissecting popliteal cyst. 5. Mild chondromalacia of the apex of the patella and of the weightbearing proportion of of the medial femoral condyle. Dictated By: Nacho Luna M.D. Electronically Signed By: Nacho Luna M.D. Date Signed: 02/03/08 [facility] Shaggy Sullivan MD MR ORDERABLES Final Result documented in this encounter Visit Diagnoses Diagnosis Derangement of posterior horn of medial meniscus documented in this encounter Care Teams Rivet Tester Relationship Specialty Start Date End Date Shaquille Zelaya MD [address] [address] PCP - General Family Practice 03/22/15 documented as of this encounter
--- OUTSIDE RECORDS SUMMARY | 2025-03-21 05:41 | XMS_ITS | Encounter Summary ---
Author Organization [facility] Address [address] [place] [address] Care Team Providers Care Emergency Management Specialist Name Role Phone Shaquille Zelaya MD Primary Care Provider Encounter Details Date Type Department Care Team (Late st Contact Info) Description 11/15/2007 Outpatient Historical [facility] Medicine [address] [address] Jazmyn Hopkins MD [address] [place] [phone] Social History Tobacco Use Types Packs/Day Years Used Date Smoking Tobacco: Never Assessed Comments Unknown Sex and Gender Information Value Date Recorded Sex Assigned at Not on file 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 Pulse: 100. BP: 142/70. Weight is down 6 pounds from last week. CHIEF COMPLAINT: Pap and breast exam. HISTORY: Mrs. Santoro is bound and determined that she needs to be on her Deconsal decongestant which she has taken for years. She rejects the idea that it could raise her blood pressure, again because she has been taking it for years and I reminded her that she has been under treatment for hypertension for several years. She says she can not breathe through her nose unless she uses this, and has started using Afrin excessively. PHYSICAL EXAMINATION: GENERAL: Obese, adult female in a rather bad mood. HEENT: Nasal mucosa are pale and slightly swollen. The intraoral exam is unremarkable. NECK: Supple without JVD or carotid bruits. No masses. LUNGS: Clear to auscultation. HEART: Regular rate and rhythm without murmurs. BREAST EXAM: Fibrocystic changes throughout. Self-breast exam was reviewed. ABDOMEN: Obese, nontender to palpation. No masses appreciated. No hernias. SKIN: Some monilial rash below the breasts, but not below the abdominal panus. GYNECOLOGICAL: The vagina has scant, whitish discharge. The cervix appears normal. Pap smear is performed. Uterus is anteflexed, not enlarged. The adnexa are free of any masses, not definitely palpable. Did incidentally do a rectal exam which was free of any masses and the stool was Hemoccult negative. EXTREMITIES: No edema. Some arthritic changes. LABORATORY DATA: Labs from last week were reviewed. She has normal TSH, CMP. Her lipid profile demonstrates LDL of 160 and cholesterol 243. Triglycerides 185. ASSESSMENT: 1. Hypertension. 2. Obesity. 3. Arthritis. 4. Nasal congestion. 5. Hyperlipidemia. PLAN: Would limit her to the Deconsal 1 tablet every morning, and keep a watch on her blood pressures. Continue on the Zestril 20 mg in the morning, Elavil 25 mg nightly, has started lovastatin 20 mgnightly, and needs repeat lipids and hepatic functions in six weeks. 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 Jazmyn Hopkins M.D. [facility] Electronically Signed by Jazmyn Hopkins M.D. 12/10/2007 11:36 , P, tex Document #: [id number] cc: documented in this encounter Plan of Treatment Not on file documented as of this encounter Visit Diagnoses Not on filedocumented in this encounter Care Teams Emergency Management Specialist Relationship Specialty Start Date End Date Shaquille Zelaya MD [address] [place] [address] PCP - General Family Practice 03/22/15 documented as of this encounter
--- OUTSIDE RECORDS SUMMARY | 2025-03-21 05:41 | XMS_ITS | Encounter Summary ---
Author Organization [facility] Address [address] [place] [address] Care Team Providers Care Video Game Maker Name Role Phone Shaquille Zelaya MD Primary Care Provider [phone] Encounter Details Date Type Department Care Team (Late st Contact Info) Description 02/07/2012 Ancillary Orders [facility] [address] [place] [address] Saul Monsalve MD NO ADDRESS ON FILE Pain Social History Tobacco Use Types Packs/Day Years Used Date Smoking Tobacco: Never Smokeless Tobacco: Never Alcohol Use Standard Drinks/Week Comments No 0 (1 standard drink = 0.6 oz pur e alcohol) Comments No Sex and Gender Information Value Date Recorded Sex Assigned at Not on file Legal Sex Female 5:11 AM RN DOCUMENT IMPROVEMENT Gender Identity Not on file Sexual Orientation Not on file documented as of this encounter Plan of Treatment Not on file documented as of this encounter Results * XR KNEE 1 OR 2 VW LEFT (02/07/2012 10:48 AM CDT) Anatomical Region Laterality Modality Lower Extremity Computed Radiogr aphy Narrative 02/14/2012 2:22 PM CDT AP and lateral of the left knee shows a total knee arthroplasty in satisfactory position. The right knee is included on the AP view and shows medial compartment narrowing of a significant degree. Procedure Note Saul Monsalve MD - 02/14/2012 AP and lateral of the left knee shows a total knee arthroplasty insatisfactory position. The right knee is included on the AP view andshows medial compartment narrowing of a significant degree. us Saul Monsalve MD DIAGNOSTIC IMAGING ORDERABLE S Final Result documented in this encounter Visit Diagnoses Diagnosis Pain Generalized pain documented in this encounter Care Teams Video Game Maker Relationship Specialty Start Date End Date Shaquille Zelaya MD [address] [place] [address] PCP - General Family Practice 03/22/15 documented as of this encounter
--- OUTSIDE RECORDS SUMMARY | 2025-03-21 05:41 | XMS_ITS | Encounter Summary ---
Author Organization [facility] Address [address] [place] [address] Care Team Providers Care Rail Gang Supervisor Name Role Phone Shaquille Zelaya MD Primary Care Provider [phone] Encounter Details Date Type Department Care Team (Late st Contact Info) Description 11/27/2007 Outpatient Historical [facility] [address] [facility] [address] [place] [address] Social History Tobacco Use Types Packs/Day Years Used Date Smoking Tobacco: Never Assessed Comments Unknown Sex and Gender Information Value Date Recorded Sex Assigned at Not on file Legal Sex Female 5:11 AM GLOVE PARTS INSPECTOR Gender Identity Not on file Sexual Orientation Not on file documented as of this encounter Plan of Treatment Not on file documented as of this encounter Visit Diagnoses Not on filedocumented in this encounter Care Teams Rail Gang Supervisor Relationship Specialty Start Date End Date Shaquille Zelaya MD [address], [place] [address] PCP - General Family Practice 03/22/15 documented as of this encounter
--- OUTSIDE RECORDS SUMMARY | 2025-03-21 05:41 | XMS_ITS | Encounter Summary ---
Author Organization [facility] Address [address] [place] [address] Care Team Providers Care Manager It Training Name Role Phone Shaquille Zelaya MD Primary Care Provider Encounter Details Date Type Department Care Team (Latest Contact Info) Description 11/11/2004 Outpatient Historical [facility] Medicine [place] [address] [place] [phone] Jazmyn Hopkins MD [address] [place] [phone] Pure hypercholesterolem (Primary Dx); Dietary surveil/loan counselor Social History Tobacco Use Types Packs/Day Years Used Date Smoking Tobacco: Never Assessed Comments Unknown Sex and Gender Information Value Date Recorded Sex Assigned at Not on file Legal Sex Female 5:11 AM PRINTING TECHNICIAN Gender Identity Not on file Sexual Orientation Not on file documented as of this encounter Plan of Treatment Not on file documented as of this encounter Visit Diagnoses Diagnosis Pure hypercholesterolem- Primary Pure hypercholesterolemia Dietary surveil/loan counselor Dietary surveillance and counseling documented in this encounter Care Teams Manager It Training Relationship Specialty Start Date End Date Shaquille Zelaya MD [address] [phone] PCP - General Family Practice 03/22/15 documented as of this encounter
--- OUTSIDE RECORDS SUMMARY | 2025-03-21 05:41 | XMS_ITS | Encounter Summary ---
Author Organization [facility] Address [address] [place] [address] Care Team Providers Care Rehabilitation Coordinator Name Role Phone Shaquille Zelaya MD Primary Care Provider [phone] Encounter Details Date Type Department Care Team (Late st Contact Info) Description 11/05/2007 Outpatient Historical [facility] Medicine [address] [phone] Jazmyn Hopkins MD [address] [place] [phone] Social History Tobacco Use Types Packs/Day Years Used Date Smoking Tobacco: Never Assessed Comments Unknown Sex and Gender Information Value Date Recorded Sex Assigned at Not on file Legal Sex Female 5:11 AM ROOM SERVICE FOOD SERVICE ATTENDANT Gender Identity Not on file Sexual Orientation Not on file documented as of this encounter Progress Notes * Jazmyn Hopkins MD - 11/05/2007 12:00 AM CST Patient Name: Crissy Santoro DOS: 11/05/2007 : 1945 VITALS: Weight: 232.0 pounds. Pulse: 74. BP: 114/70. CHIEF COMPLAINT: Is six-month followup of hypertension. HISTORY: Crissy indicates that she is not sleeping well and has been using some Ativan tablets that were left over following her mother's in June. 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 She does complain of arthritic aches and pains, of her hands falling sleep with driving or any fine handwork. The patient has not been following any particular diet, does not get any exercise aside from the farm chores. The knees are bothering her. PHYSICAL EXAMINATION: GENERAL: An obese adult female with a waddling gait. HEENT: Is unremarkable aside from a fly's wing in her right ear canal that required irrigations to remove. The tympanic membranes were both lucent. The throat is unremarkable. NECK: Is supple. LUNGS: Are clear. HEART: Has regular rate and rhythm without murmurs. ABDOMEN: Is obese, nontender to palpation. EXTREMITIES: Regarding the extremities, both Phalen's and Tinel's signs are positive bilaterally. There is no thenar wasting and there are arthritic changes in both knees. ASSESSMENT: 1. Carpal tunnel syndrome. 2. Hypertension. 3. Degenerative arthritis in the knees. 4. Obesity. 5. Insomnia. 6. Foreign body in the ear. PLAN: The patient did not want anything done regarding her hands, as that would slow her down. She did get the lecture about taking other people's medications and was prescribed Elavil 25 mg p.o. nightly for sleep and perhaps to quiet down some of the nerve pain. She also received a small prescription for [place] to use when plain Tylenol is not adequate for relief. No changes in her antihypertensiv e, as always talked about low-sodium diet and weight loss. Jazmyn Hopkins M.D. [facility] Electronically Signed by Jazmyn Hopkins M.D. 12/10/2007 11:36 , [place] Document #: [id number] cc: documented in this encounter Plan of Treatment Not on file documented as of this encounter Procedures Procedure Name Priority Date/Time Associated Diagnosis Comments TSH Routine 11/05/2007 11:16 AM ROOM SERVICE FOOD SERVICE ATTENDANT LIPID PANEL Routine 11/05/2007 11:16 AM ROOM SERVICE FOOD SERVICE ATTENDANT COMPREHENSIVE METABOLIC PANEL Routine 11/05/2007 11:16 AM ROOM SERVICE FOOD SERVICE ATTENDANT documented in this encounter Results * TSH (11/05/2007 11:16 AM ROOM SERVICE FOOD SERVICE ATTENDANT) TSH 1.50 0.27 - 4.20 uIU/ML [facility] 11/05/2007 11:1 6 AM ROOM SERVICE FOOD SERVICE ATTENDANT 11/05/2007 11:21 AM ROOM SERVICE FOOD SERVICE ATTENDANT Jazmyn Hopkins MD CHEMISTRY ORDERABLES Final Resu lt [facility] CLIA# [id number] [address] [place] [id number] * (ABNORMAL) LIPID PANEL (11/05/2007 11:16 AM ROOM SERVICE FOOD SERVICE ATTENDANT) CHOLESTEROL 243(H) 100 - 200 MG/DL [facility] TRIGLYCERIDE 185 0 - 200 MG/DL [facility] HDL 46 40 - 60 MG/DL [facility] LDL CALCULATED 160(H) 58 - 100 MG/DL [facility] LDL CALCULATED CALCULATED LDL REFERENCE: < 100 Optimal 100 - 129 Near Optimal 130 - 159 Borderline High > 160 High Risk [facility] CHOL/HDL RATIO 5.28(H) 3.27 - 4.44 RATIO [facility] 11/05/2007 11:1 6 AM ROOM SERVICE FOOD SERVICE ATTENDANT 11/05/2007 11:21 AM ROOM SERVICE FOOD SERVICE ATTENDANT Jazmyn Hopkins MD CHEMISTRY ORDERABLES Final Resu lt [facility] CLIA# [id number] [facility] [place] [address] * COMPREHENSIVE METABOLIC PANEL (11/05/2007 11:16 AM ROOM SERVICE FOOD SERVICE ATTENDANT) GLUCOSE 83 70 - 100 MG/DL [facility] GLUCOSE Reference interval only valid for fasting specimens [facility] BUN 16 6 - 20 MG/DL [facility] CREATININE 0.8 0.4 - 1.2 MG/DL [facility] SODIUM 139 134 - 145 MEQ/L [facility] POTASSIUM 4.3 3.5 - 5.1 MEQ/L [facility] CHLORIDE 101 96 - 108 MEQ/L [facility] CO2 28 22 - 32 MMOL/L [facility] CALCIUM 9.6 8.8 - 10.6 MG/DL [facility] TOTAL PROTEIN 7.5 5.9 - 8.2 G/DL [facility] ALBUMIN 4.5 3.4 - 4.8 G/DL [facility] D[facility] AST 28 12 - 32 IU/L [facility] ALT 27 4 - 36 IU/L [facility] ALKALINE PHOSPHATASE 95 35 - 104 IU/L [facility] BILIRUBIN TOTAL 0.5 0.2 - 1.0 MG/DL [facility] D[facility] ANION GAP 14 9 - 20 MEQ/L [facility] GLOBULIN (CALC) 3.0 2.4 - 3.9 G/DL [facility] ALBUMIN/GLOBULI N RATIO 1.5 1.0 - 2.3 RATIO [facility] D[facility] OSMOLALITY, CALCULATED 287 275 - 295 MOSM/KG [facility] GFR >60 >60 mL/min/1. 73m [facility] GFR, >60 >60 mL/min/1. 73m [facility] 11/05/2007 11:1 6 AM ROOM SERVICE FOOD SERVICE ATTENDANT 11/05/2007 11:21 AM ROOM SERVICE FOOD SERVICE ATTENDANT Jazmyn Hopkins MD CHEMISTRY ORDERABLES Final Resu lt [facility] IA# [id number] [address] [place] [address] documented in this encounter Visit Diagnoses Not on filedocumented in this encounter Care Teams Rehabilitation Coordinator Relationship Specialty Start Date End Date Shaquille Zelaya MD [address] [place] [phone] PCP - General Family Practice 03/22/15 documented as of this encounter
--- OUTSIDE RECORDS SUMMARY | 2025-03-21 05:41 | XMS_ITS | Encounter Summary ---
Author Organization [facility] Address [address] [place] [address] Care Team Providers Care Chief Arson Division Name Role Phone Shaquille Zelaya MD Primary Care Provider [phone] Reason for Referral * Outpatient Services (Routine) - Closed Specialty Diagnoses / Procedures Referred By Contafia t Referred To Contact Diagnoses Encounter for screening mammogram for breast cancer Procedures MAMMO DIGITAL SCREEN BIL MOBILE Fernanda Cuenca FNP [address] [place] [phone] Phone: tel: fax: Referral ID Status Reason Start Date Expiration Date Visits Re quested Visits Authorized [id number] Closed 08/16/2015 09/15/2016 1 1 D REVIEWER Encounter Details Date Type Department Care Team (Latest Contact Info) Description 08/16/[address] [facility] [address] [phone] Fernanda Cuenca FNP [address] [place] [phone] Encounter for screening mammogram for breast cancer (Primary Dx) Social History Tobacco Use Types Packs/Day Years Used Date Smoking Tobacco: Never Smokeless Tobacco: Never Alcohol Use Standard Drinks/Week Comments No 0 (1 standard drink = 0.6 oz pur e alcohol) Comments No Sex and Gender Information Value Date Recorded Sex Assigned at Not on file Legal Sex Female 5:11 AM FIELD REVIEWER Gender Identity Not on file Sexual Orientation Not on file Occupation Industry Job Start Date Job End Date Not on file Not on file Not on file Not on file documented as of this encounter Plan of Treatment Not on file documented as of this encounter Results * MAMMO DIGITAL SCREEN BILAT MOBILE (09/08/2015 1:47 PM FIELD REVIEWER) Anatomical Region Laterality Modality Breast Bilateral Mammography Narrative 09/09/2015 8:49 AM FIELD REVIEWER Bilateral Mammogram Reason for Exam: Screening Comparison: Compared to: 09/02/2014 MAMMO DIGITAL SCREEN BILAT MOBILE, 08/28/2013 MAMMO DIGITAL SCREEN BILAT MOBILE, 08/06/2012 MAMMO DIGITAL SCREEN BILAT MOBILE, 11/26/2007 MAMMO DIGITIZED STUDY, 05/07/2006 MAMMO DIGITIZED STUDY Findings: Bilateral CC and MLO views were obtained. This examination was reviewed with the aid of a computer-aided detection system(CAD). The breast tissue density is average. Bilateral breast nodularity is stable. No significant new findings since the prior mammogram(s). us Fernanda Cuenca VALVE STEAMER MAMMO ORDERABLES Final Result documented in this encounter Visit Diagnoses Diagnosis Encounter for screening mammogram for breast cancer- Primary Encounter for screening mammogram for breast cancer documented in this encounter Additional Health Concerns Assessment Noted Time PHQ-9 Depression Total Score: 4 06/15/20 14 10:00 AM CDT documented as of this encounter Care Teams Chief Arson Division Relationship Specialty Start Date End Date Shaquille Zelaya MD [address] [place] [phone] PCP - General Family Practice 03/22/15 documented as of this encounter
--- OUTSIDE RECORDS SUMMARY | 2025-03-21 05:41 | XMS_ITS | Encounter Summary ---
Author Organization [facility] Address [address] [place] [address] Care Team Providers Care Mountain Guide Name Role Phone Shaquille Zelaya MD Primary Care Provider Encounter Details Date Type Department Care Team (Latest Contact Info) Description 03/17/2004 Outpatient Historical [facility] [address] [place] [phone] Martín Moya MD [address] [place] [phone] Skin sensation disturb (Primary Dx); Benign tammy lg bowel Social History Tobacco Use Types Packs/Day Years Used Date Smoking Tobacco: Never Assessed Comments Unknown Sex and Gender Information Value Date Recorded Sex Assigned at Not on file Legal Sex Female 5:11 AM CAREER INFORMATION SPECIALIST Gender Identity Not on file Sexual Orientation Not on file documented as of this encounter Plan of Treatment Not on file documented as of this encounter Visit Diagnoses Diagnosis Skin sensation disturb- Primary Disturbance of skin sensation 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
--- OUTSIDE RECORDS SUMMARY | 2025-03-21 05:41 | XMS_ITS | Encounter Summary ---
Author Organization [facility] Address [address] [place] [address] Care Team Providers Care Precision Printing Worker Name Role Phone Shaquille Zelaya MD Primary Care Provider Encounter Details Date Type Department Care Team (Latest Contact Info) Description 09/14/2006 Outpatient Historical [facility] Medicine [place] [address] [place] [phone] Jazmyn Hopkins MD [address] [place] [phone] Unspecified Essential Hypertension (Primary Dx); Unspecified Arthropathy, Site Unspecified Social History Tobacco Use Types Packs/Day Years Used Date Smoking Tobacco: Never Assessed Comments Unknown Sex and Gender Information Value Date Recorded Sex Assigned at Not on file Legal Sex Female 5:11 AM WIRE CUTTER Gender Identity Not on file Sexual Orientation Not on file documented as of this encounter Plan of Treatment Not on file documented as of this encounter Visit Diagnoses Diagnosis Unspecified essential hypertension- Primary Arthropathy, unspecified, site unspecified documented in this encounter Care Teams Precision Printing Worker Relationship Specialty Start Date End Date Shaquille Zelaya MD [address] [place] [phone] PCP - General Family Practice 03/22/15 documented as of this encounter
--- OUTSIDE RECORDS SUMMARY | 2025-03-21 05:41 | XMS_ITS | Encounter Summary ---
Author Organization [facility] Address [address] [place] [address] Care Team Providers Care Airport Guide Name Role Phone Shaquille Zelaya MD Primary Care Provider [phone] Encounter Details Date Type Department Care Team (Latest Contact Info) Description 02/23/2006 Outpatient Historical [facility] Medicine [place] [address] [place] [phone] Jazmyn Hopkins MD [address] [place] [phone] Postherpes Trigem Neural (Primary Dx); Pain in Joint, Shoulder Region; Unspecified Essential Hypertension Social History Tobacco Use Types Packs/Day Years Used Date Smoking Tobacco: Never Assessed Comments Unknown Sex and Gender Information Value Date Recorded Sex Assigned at Not on file Legal Sex Female 5:11 AM TEXTILE CUTTING MACHINE OPERATOR Gender Identity Not on file Sexual Orientation Not on file documented as of this encounter Plan of Treatment Not on file documented as of this encounter Visit Diagnoses Diagnosis 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
--- OUTSIDE RECORDS SUMMARY | 2025-03-21 05:41 | XMS_ITS | Encounter Summary ---
Author Organization [facility] Address [address] [place] [address] Care Team Providers Care Fire Supervisor Name Role Phone Shaquille Zelaya MD Primary Care Provider Encounter Details Date Type Department Care Team (Latest Contact Info) Description 10/31/2004 Outpatient Historical [facility] Medicine [place] [address] [place] [phone] Jazmyn Hopkins MD [address] [place] [phone] HYPERTENSION NOS (Primary Dx); STRESS REACT, EMOTIONAL; ABNORMAL WEIGHT GAIN Social History Tobacco Use Types Packs/Day Years Used Date Smoking Tobacco: Never Assessed Comments Unknown Sex and Gender Information Value Date Recorded Sex Assigned at Not on file Legal Sex Female 5:11 AM COMPUTER PROGRAMMING MANAGER Gender Identity Not on file Sexual Orientation Not on file documented as of this encounter Plan of Treatment Not on file documented as of this encounter Visit Diagnoses Diagnosis Unspecified essential hypertension- Primary Predominant disturbance of emotions Abnormal weight gain documented in this encounter Care Teams Fire Supervisor Relationship Specialty Start Date End Date Shaquille Zelaya MD [address] [place] [phone] PCP - General Family Practice 03/22/15 documented as of this encounter
--- OUTSIDE RECORDS SUMMARY | 2025-03-21 05:41 | XMS_ITS | Encounter Summary ---
Author Organization [facility] Address [address] [facility] [place] [address] Care Team Providers Care Ply Splicer Name Role Phone Shaquille Zelaya MD Primary Care Provider [phone] Reason for Referral * Outpatient Services (Routine) - Closed Specialty Diagnoses / Procedures Referred By Contac t Referred To Contact Diagnoses Other screening mammogram Procedures MAMMO DIGITAL SCREEN BILAT MOBILE Katerine Boston FNP [address] [place] [address] Phone: tel: fax: Referral ID Status Reason Start Date Expiration Date Visits Re quested Visits Authorized [id number] Closed 08/11/2014 09/11/2015 1 1 N CONER Encounter Details Date Type Department Care Team (Latest Contact Info) Description 08/11/2014 Ancillary Orders [facility] [address] [address] Katerine Boston FNP [address] [place] [address] Other screening mammogram (Primary Dx) Social History Tobacco Use Types Packs/Day Years Used Date Smoking Tobacco: Never Smokeless Tobacco: Never Alcohol Use Standard Drinks/Week Comments No 0 (1 standard drink = 0.6 oz pur e alcohol) Comments No Sex and Gender Information Value Date Recorded Sex Assigned at Not on file Legal Sex Female 5:11 AM RAYON CONER Gender Identity Not on file Sexual Orientation Not on file Occupation Industry Job Start Date Job End Date Not on file Not on file Not on file Not on file documented as of this encounter Plan of Treatment Not on file documented as of this encounter Results * MAMMO DIGITAL SCREEN BILAT MOBILE (09/02/2014 1:18 PM RAYON CONER) Anatomical Region Laterality Modality Breast Bilateral Mammography Narrative 09/04/2014 10:39 AM RAYON CONER Bilateral Mammogram Reason for Exam: Screening Comparison: Compared to: 08/28/2013 MAMMO DIGITAL SCREEN BILAT MOBILE, 08/06/2012 MAMMO DIGITAL SCREEN BILAT MOBILE, 11/26/2007 MAMMO DIGITIZED STUDY, 05/07/2006 MAMMO DIGITIZED STUDY Findings: Bilateral CC and MLO views were obtained. This examination was reviewed with the aid of a computer-aided detection system(CAD). The breast tissue is dense. Bilateral breast nodularity is stable. No significant new findings since the prior mammogram(s). Procedure Note Melody Gama MD - 09/04/2014 Bilateral Mammogram Reason for Exam: Screening Comparison: Compared to: 08/28/2013 MAMMO DIGITAL SCREEN BILAT MOBILE,08/06/2012 MAMMO DIGITAL SCREEN BILAT MOBILE, 11/26/2007 MAMMO DIGITIZEDSTUDY, 05/07/2006 MAMMO DIGITIZED STUDY Findings: Bilateral CC and MLO views were obtained. This examination was reviewed with the aid of a computer-aided detectionsystem(CAD). The breast tissue is dense. Bilateral breast nodularity is stable. No significant new findings since the prior mammogram(s). Katerine Boston BOTTLE CAPPING MACHINE OPERATOR MAMMO ORDERABLES Final Result documented in this encounter Visit Diagnoses Diagnosis Other screening mammogram- Primary Other screening mammogram documented in this encounter Additional Health Concerns Assessment Noted Time PHQ-9 Depression Total Score: 4 06/15/20 14 10:00 AM CDT documented as of this encounter Care Teams Ply Splicer Relationship Specialty Start Date End Date Shaquille Zelaya MD [address] [place] [phone] PCP - General Family Practice 03/22/15 documented as of this encounter
--- OUTSIDE RECORDS SUMMARY | 2025-03-21 05:41 | XMS_ITS | Encounter Summary ---
Author Organization [facility] Address [address] [place] [address] Care Team Providers Care Blacksmith Helper Name Role Phone Shaquille Zelaya MD Primary Care Provider [phone] Reason for Referral * Outpatient Services (Routine) - Closed Specialty Diagnoses / Procedures Referred By Contac t Referred To Contact Diagnoses Visit for screening mammogram Procedures MAMMO SCRN BILAT MOBILE W OR WO CAD Shaquille Zelaya MD [address], [place] [address] Phone: tel: fax: Referral ID Status Reason Start Date Expiration Date Visits Re quested Visits Authorized [id number] Closed 10/17/2017 11/17/2018 1 1 AG MACHINE OPERATOR Encounter Details Date Type Department Care Team (Latest Contact Info) Description 10/17/[facility] [address] [address] Shaquille Zelaya MD [address] [place] [address] Visit for screening mammogram Social History Tobacco Use Types Packs/Day Years Used Date Smoking Tobacco: Never Smokeless Tobacco: Never Alcohol Use Standard Drinks/Week Comments No 0 (1 standard drink = 0.6 oz pur e alcohol) Comments No Sex and Gender Information Value Date Recorded Sex Assigned at Not on file Legal Sex Female 5:11 AM ZIGZAG MACHINE OPERATOR Gender Identity Not on file Sexual Orientation Not on file Occupation Industry Job Start Date Job End Date Not on file Not on file Not on file Not on file documented as of this encounter Plan of Treatment Not on file documented as of this encounter Results * MAMMO SCRN BILAT MOBILE W OR WO CAD (10/31/2017 10:02 AM ZIGZAG MACHINE OPERATOR) Anatomical Region Laterality Modality Breast Bilateral Mammography Narrative 11/01/2017 8:25 AM ZIGZAG MACHINE OPERATOR Bilateral Mammogram Reason for Exam: Screening Comparison: Compared to: 09/07/2016 MAMMO DIGITAL SCREEN BILAT MOBILE, 09/08/2015 MAMMO DIGITAL SCREEN BILAT MOBILE, 09/02/2014 MAMMO DIGITAL SCREEN BILAT MOBILE, and 08/28/2013 MAMMO DIGITAL SCREEN BILAT MOBILE Findings: Bilateral CC and MLO views were obtained. This examination was reviewed with the aid of a computer-aided detection system(CAD). Breast Composition: There are scattered areas of fibroglandular density. There are no suspicious masses, areas of architectural distortions, or microcalcifications to suggest malignancy. Bilateral breast nodularity is stable. No significant new findings since the prior mammogram(s). us Shaquille Zelaya MD MAMMO ORDERABLES Final Result documented in this encounter Visit Diagnoses Diagnosis Visit for screening mammogram Other screening mammogram Visit for screening mammogram Other screening mammogram documented in this encounter Additional Health Concerns Assessment Noted Time PHQ-9 Depression Total Score: 2 08/27/20 17 9:00 PM ZIGZAG MACHINE OPERATOR documented as of this encounter Care Teams Blacksmith Helper Relationship Specialty Start Date End Date Shaquille Zelaya MD [address] [place] [address] PCP - General Family Practice 03/22/15 documented as of this encounter
--- OUTSIDE RECORDS SUMMARY | 2025-03-21 05:41 | XMS_ITS | Encounter Summary ---
Author Organization [facility] Address [address] [place] [address] Care Team Providers Care Bodywork Therapist Name Role Phone Shaquille Zelaya MD Primary Care Provider [phone] Encounter Details Date Type Department Care Team (Late st Contact Info) Description 02/18/2008 Outpatient Historical [facility] Sarah [address] [place] [address] Jazmyn Hopkins MD [address] [place] [phone] Other Chest Pain Social History Tobacco Use Types Packs/Day Years Used Date Smoking Tobacco: Never Assessed Comments Unknown Sex and Gender Information Value Date Recorded Sex Assigned at Not on file Legal Sex Female 5:11 AM MDS NURSE Gender Identity Not on file Sexual Orientation Not on file documented as of this encounter Plan of Treatment Not on file documented as of this encounter Procedures Procedure Name Priority Date/Time Associated Diagnosis Comments NM MYOCARD PERF IMAG SPECT SINGL Routine 02/19/2008 8:21 AM CDT documented in this encounter Results * NM MYOCARD PERF IMAG SPECT SINGL (02/19/2008 8:21 AM CDT) 02/19/2008 8:21 AM CDT Narrative INTERFACE SYSTEM - 02/19/2008 8:21 AM CDT ansiMYOCARDIAL PERFUSION STUDY: DATE OF PROCEDURE: 02/19/2008 INDICATION: Chest pain. PROTOCOL: Tomographic slices of the left ventricle are obtained at rest after injection of 13.4of Tc-99m (technetium-99m) tetrofosmin and post stress after exercise to a maximum heart rate of 129 beats per minute (81% of the maximum predicted heart rate) on a Sav protocol and after reinjection of 41 mCi of Tc-99m (technetium-99m) tetrofosmin. FINDINGS: The LV chamber dimensions appear to be normal to small post stress and at rest without evident transient ischemic dilatation post stress relative to rest. The immediate post stress images appear to show relatively uniform tracer uptake in all LV segments. The rest images show no clinically significant reversible or fixed perfusion abnormality in any LV segment. The gated LV function study shows a hyperdynamic global LV systolic function with a calculated LVEF of greater than 80%. No regional wall motion abnormalities are identified. IMPRESSION: 1. This is a normal myocardial perfusion study that shows no clinically significant reversible or fixed perfusion abnormality in any LV segment. 2. Hyperdynamic global left ventricular systolic function with a calculated LVEF of greater than 80%. No regional wall motion abnormalities are detected. ama / Dictated By: Stoney Dasilva M.D. Electronically Signed By: Stoney Dasilva M.D. Date Signed: 02/20/08 AMA Procedure Note Stoney Dasilva I - 02/20/2008 ansiMYOCARDIAL PERFUSION STUDY: DATE OF PROCEDURE: 02/19/2008 INDICATION: Chest pain. PROTOCOL: Tomographic slices of the left ventricle are obtained at restafter injection of 13.4of Tc-99m (technetium-99m) tetrofosmin and post stress after exercise to a maximumheart rate of 129 beats per minute (81% of the maximum predicted heart rate) on a Sav protocol andafter reinjection of 41 mCi of Tc-99m (technetium-99m) tetrofosmin. FINDINGS: The LV chamber dimensions appear to be normal to small poststress and at rest without evident transient ischemic dilatation post stress relative to rest. Theimmediate post stress images appear to show relatively uniform tracer uptake in all LV segments. The rest imagesshow no clinically significant reversible or fixed perfusion abnormality in any LV segment. The gatedLV function study shows a hyperdynamic global LV systolic function with a calculated LVEF of greaterthan 80%. No regional wall motion abnormalities are identified. IMPRESSION: 1. This is a normal myocardial perfusion study that shows no clinicallysignificant reversible or fixed perfusion abnormality in any LV segment. 2. Hyperdynamic global left ventricular systolic function with acalculated LVEF of greater than 80%. No regional wall motion abnormalities are detected. ama / Dictated By: Stoney Dasilva M.D. Electronically Signed By: Stoney Dasilva M.D. Date Signed: 02/20/08 AMA us Jazmyn Hopkins MD OR ORDERABLES Final Result INTERFACE SYSTEM Refer to clinic/hospital department documented in this encounter Visit Diagnoses Diagnosis Other chest pain documented in this encounter Care Teams Bodywork Therapist Relationship Specialty Start Date End Date Shaquille Zelaya MD [address], [place] [address] PCP - General Family Practice 03/22/15 documented as of this encounter
--- OUTSIDE RECORDS SUMMARY | 2025-03-21 05:41 | XMS_ITS | Encounter Summary ---
Author Organization [facility] Address [address] [place] [address] Care Team Providers Care Medical Advisor Name Role Phone Shaquille Zelaya MD Primary Care Provider Encounter Details Date Type Department Care Team (Late st Contact Info) Description 04/20/2006 Outpatient Historical [facility] [place] [address] [place] [phone] Jazmyn Hopkins MD [address] [place] [phone] Social History Tobacco Use Types Packs/Day Years Used Date Smoking Tobacco: Never Assessed Comments Unknown Sex and Gender Information Value Date Recorded Sex Assigned at Not on file Legal Sex Female 5:11 AM IMAGE EDITOR Gender Identity Not on file Sexual Orientation Not on file documented as of this encounter Plan of Treatment Not on file documented as of this encounter Visit Diagnoses Not on filedocumented in this encounter Care Teams Medical Advisor Relationship Specialty Start Date End Date Shaquille Zelaya MD [address] [phone] PCP - General Family Practice 03/22/15 documented as of this encounter
--- OUTSIDE RECORDS SUMMARY | 2025-03-21 05:41 | XMS_ITS | Encounter Summary ---
Author Organization [facility] Address [address] [place] [address] Care Team Providers Care Newspaper Copy Editor Name Role Phone Shaquille Zelaya MD Primary Care Provider [phone] Reason for Referral * Radiology Services (Routine) - Closed Specialty Diagnoses / Procedures Referred By Contac t Referred To Contact Diagnoses Visit for screening mammogram Procedures MAMMO 3D SCREEN BILATERAL MOBILE Shaquille Zelaya MD [address] [place] [address] Phone: tel: fax: Referral ID Status Reason Start Date Expiration Date Visits Re quested Visits Authorized [id number] Closed 01/12/2020 02/11/2021 1 1 Encounter Details Date Type Department Care Team (Latest Contact Info) Description 01/12/2020 [facility] [address] [address] Shaquille Zelaya MD [address] [place] [address] Visit for screening mammogram Social History Tobacco Use Types Packs/Day Years Used Date Smoking Tobacco: Never Smokeless Tobacco: Never Alcohol Use Standard Drinks/Week Comments No 0 (1 standard drink = 0.6 oz pur e alcohol) Comments No Sex and Gender Information Value Date Recorded Sex Assigned at Not on file Legal Sex Female 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 No / Unsure 01/15/2020 8:02 AM CDT documented as of this encounter Plan of Treatment Not on file documented as of this encounter Results * MAMMO 3D SCREEN BILATERAL MOBILE (03/17/2020 9:46 AM CDT) Anatomical Region Laterality Modality Breast Bilateral Mammography Narrative 03/22/2020 7:39 AM CDT Bilateral Digital Mammogram with CAD and 3D Tomography Reason for Exam: Screening Comparison: Compared to: 01/30/2019 MAMMO 3D SCREEN BILATERAL MOBILE, 10/31/2017 MAMMO SCRN BILAT MOBILE W OR WO CAD, 09/07/2016 MAMMO DIGITAL SCREEN BILAT MOBILE, 09/08/2015 MAMMO DIGITAL SCREEN BILAT MOBILE, 09/02/2014 MAMMO DIGITAL SCREEN BILAT MOBILE, and 08/28/2013 MAMMO DIGITAL SCREEN BILAT MOBILE Technique: 3D MLO and CC digital tomosynthesis images were acquired and synthesized 2D images (C view) were generated. This digital mammogram was also analyzed by the Computer Aided Detection System CAD). Breast Composition: There are scattered areas of fibroglandular density. There are no suspicious masses, areas of architectural distortions, or microcalcifications to suggest malignancy. No significant new findings since the prior mammogram(s). The bilateral breast nodularity is stable. Shaquille Zelaya MD MAMMO ORDERABLES Final Result documented in this encounter Visit Diagnoses Diagnosis Visit for screening mammogram Other screening mammogram Visit for screening mammogram Other screening mammogram documented in this encounter Care Teams Newspaper Copy Editor Relationship Specialty Start Date End Date Shaquille Zelaya MD [address] [place] [address] PCP - General Family Practice 03/22/15 documented as of this encounter
--- OUTSIDE RECORDS SUMMARY | 2025-03-21 05:41 | XMS_ITS | Encounter Summary ---
Author Organization [employer] [facility] Address [address] [place] [address] Care Team Providers Care Inside Outside Sales Representative Name Role Phone Shaquille Zelaya MD Primary Care Provider [phone] Reason for Referral * Outpatient Services (Routine) - Closed Specialty Diagnoses / Procedures Referred By Contafia t Referred To Contact Diagnoses Visit for screening mammogram Procedures MAMMO DIGITAL SCREEN BIL MOBILE Fernanda Cuenca FNP [address] [place] [phone] Phone: tel: fax: Referral ID Status Reason Start Date Expiration Date Visits Re quested Visits Authorized [id number] Closed 09/04/2016 10/05/2017 1 1 ING ANALYST Encounter Details Date Type Department Care Team (Latest Contact Info) Description 09/04/2016 Ancillary Orders [facility] [employer] [facility] [address] [phone] Fernanda Cuenca FNP [address] [place] [phone] Visit for screening mammogram Social History Tobacco Use Types Packs/Day Years Used Date Smoking Tobacco: Never Smokeless Tobacco: Never Alcohol Use Standard Drinks/Week Comments No 0 (1 standard drink = 0.6 oz pur e alcohol) Comments No Sex and Gender Information Value Date Recorded Sex Assigned at Not on file Legal Sex Female 5:11 AM PRICING ANALYST Gender Identity Not on file Sexual Orientation Not on file Occupation Industry Job Start Date Job End Date Not on file Not on file Not on file Not on file documented as of this encounter Plan of Treatment Not on file documented as of this encounter Results * MAMMO DIGITAL SCREEN BILAT MOBILE (09/07/2016 10:40 AM PRICING ANALYST) Anatomical Region Laterality Modality Breast Bilateral Mammography Narrative 09/08/2016 8:12 AM PRICING ANALYST Bilateral Mammogram Reason for Exam: Screening Comparison: Compared to: 09/08/2015 MAMMO DIGITAL SCREEN BILAT MOBILE, 09/02/2014 MAMMO DIGITAL SCREEN BILAT MOBILE, 08/28/2013 MAMMO DIGITAL SCREEN BILAT MOBILE, 08/06/2012 MAMMO DIGITAL SCREEN BILAT MOBILE, 11/26/2007 MAMMO DIGITIZED STUDY, and 05/07/2006 MAMMO DIGITIZED STUDY Findings: Bilateral CC and MLO views were obtained. This examination was reviewed with the aid of a computer-aided detection system(CAD). The breast tissue density is average. Bilateral breast nodularity is stable. No significant new findings since the prior mammogram(s). us Fernanda Cuenca CUFF RUNNER MAMMO ORDERABLES Final Result documented in this encounter Visit Diagnoses Diagnosis Visit for screening mammogram Other screening mammogram Visit for screening mammogram Other screening mammogram documented in this encounter Care Teams Inside Outside Sales Representative Relationship Specialty Start Date End Date Shaquille Zelaya MD [address] [place] [address] PCP - General Family Practice 03/22/15 documented as of this encounter
--- OUTSIDE RECORDS SUMMARY | 2025-03-21 05:41 | XMS_ITS | Encounter Summary ---
Author Organization [facility] Address [address] [place] [address] Care Team Providers Care Sterilizer Machine Operator Name Role Phone Shaquille Zelaya MD Primary Care Provider Encounter Details Date Type Department Care Team (Latest Contact Info) Description 11/19/2007 Outpatient Historical [facility] [address] [phone] Jazmyn Hopkins MD [address] [place] [phone] Routine Gynecological Examination Social History Tobacco Use Types Packs/Day Years Used Date Smoking Tobacco: Never Assessed Comments Unknown Sex and Gender Information Value Date Recorded Sex Assigned at Not on file Legal Sex Female 5:11 AM ATTENDING UROLOGIST Gender Identity Not on file Sexual Orientation Not on file documented as of this encounter Plan of Treatment Not on file documented as of this encounter Procedures Procedure Name Priority Date/Time Associated Diagnosis Comments HPV HIGH RISK DNA DETECTION Routine 11/15/2007 12:49 PM ATTENDING UROLOGIST PATHOLOGY Routine 11/15/2007 6:31 AM ATTENDING UROLOGIST documented in this encounter Results * HPV HIGH RISK DNA DETECTION (11/15/2007 12:49 PM ATTENDING UROLOGIST) FINAL REPORT HPV High Risk DNA: Not Detected . Testing by the FDA Approved Digene Hybrid Capture II method failed to detect the presence of any of the following high-risk HPV types (16,18,31,33, 35,39,45,51,5 2,56,58,59,68 ). High-risk HPV DNA sequences are either absent or the HPV solution DNA levels are below the detection limit of the assay. This test does not evaluate for the presence of low-risk types of HPV. INTERFACE SYSTEM Specimen from genital system (specimen) (Endocervical) 11/15/2007 12:49 PM ATTENDING UROLOGIST 11/19/2007 12:59 PM ATTENDING UROLOGIST Narrative INTERFACE SYSTEM - 11/19/2007 1:00 PM ATTENDING UROLOGIST [id number] us Jazmyn Hopkins MD PATHOLOGY/CYTOLOGY ORDERABLES F inal Result INTERFACE SYSTEM Refer to clinic/hospital department * PATHOLOGY (11/15/2007 6:31 AM ATTENDING UROLOGIST) PATHOLOGY/CY TOLOGY REPORT [facility] Anatomic Pathology Dept [facility] [address] Patient: CRISSY SETH Accn No: [id number] Collected: 11/15/2007 6:31:00 AM CYTOLOGY POLITICAL REPORTER FINAL REPORT - - CONTENT ASSISTANT PAP History Specimen Source: Endocervical/Cervic al LMP: Post-Menopausal Last Pap Date: 2005 WNL V72.31 Specimen Adequacy Satisfactory for interpretation. The smear shows sufficient numbers of endocervical or metaplastic cells. Diagnosis NEGATIVE FOR INTRAEPITHELIAL LESION OR MALIGNANCY. (Previously noted as Within Normal Limits) [employer] 11/19/07 Completed by: MARIO ALBERTO DANIELSON (Electronically signed by) 11/19/07 Comment Routine follow-up is suggested. Important Info About Pap Smears HPV Testing off the Thin Prep vial can be done as a means of further evaluating a Thin Prep Report. For information about ordering the HPV test, phone Cytology at . Treatment or follow-up recommendations (if any) that are considered within this report are based upon general recommendations as contained in 2001 Consensus Guidelines For Cervical Cytological Abnormalities JANENE: January 08, 2002, and are provided as a general guideline rather than as a specific recommendation. Final decisions about the most appropriate treatment and follow-up should be made on an individualized basis by the treating physician in consultation with his/her patient. CYTOLOGY ADDENDUM REPORT Discussion Residual specimen was tested at [facility] for high risk HPV (human papillomavirus) DNA on 11/20/2007. (Testing for low risk HPV DNA types is not performed as part of this analysis). THIN PREP DIAGNOSIS: NEG Addendum Diagnosis HPV DIAGNOSIS: NEGATIVE FOR HIGH RISK HPV DNA Jeff Lemos M.D. (Electronically signed by) Verified: 11/21/07 SEC/WLS INTERFACE SYSTEM 11/15/2007 6:31 AM ATTENDING UROLOGIST us Jazmyn Hopkins MD PATHOLOGY/CYTOLOGY ORDERABLES E dited INTERFACE SYSTEM Refer to clinic/hospital department documented in this encounter Visit Diagnoses Diagnosis Routine gynecological examination documented in this encounter Care Teams Sterilizer Machine Operator Relationship Specialty Start Date End Date Shaquille Zelaya MD [address] [place] [address] PCP - General Family Practice 03/22/15 documented as of this encounter
--- OUTSIDE RECORDS SUMMARY | 2025-03-21 05:41 | XMS_ITS | Encounter Summary ---
Author Organization [facility] Address [address] [place] [address] Care Team Providers Care Diamond Sander Name Role Phone Shaquille Zelaya MD Primary Care Provider [phone] Encounter Details Date Type Department Care Team (Late st Contact Info) Description 02/03/2008 Outpatient Historical [facility] Imaging Services [facility] 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
--- OUTSIDE RECORDS SUMMARY | 2025-03-21 05:41 | XMS_ITS | Encounter Summary ---
Author Organization [employer] [facility] Address [address] [place] [address] Care Team Providers Care Associate Music Professor Name Role Phone Shaquille Zelaya MD Primary Care Provider [phone] Encounter Details Date Type Department Care Team (Latest Contact Info) Description 05/07/2006 Outpatient [facility] Breast Center [facility] [address] [place] [address] Jazmyn Hopkins MD [address] [place] [phone] Other Screening Mammogram (Primary Dx) Social History Tobacco Use Types Packs/Day Years Used Date Smoking Tobacco: Never Assessed Comments Unknown Sex and Gender Information Value Date Recorded Sex Assigned at Not on file Legal Sex Female 5:11 AM TWO NEEDLE MACHINE OPERATOR Gender Identity Not on file Sexual Orientation Not on file documented as of this encounter Plan of Treatment Not on file documented as of this encounter Visit Diagnoses Diagnosis Other screening mammogram- Primary documented in this encounter Care Teams Associate Music Professor Relationship Specialty Start Date End Date Shaquille Zelaya MD [address] [place] [address] PCP - General Family Practice 03/22/15 documented as of this encounter
--- OUTSIDE RECORDS SUMMARY | 2025-03-21 05:41 | XMS_ITS | Clinical Summary ---
Author Organization [facility] Address [address] [place] [address] Care Team Providers Care Talcer Name Role Phone Shaquille Zelaya MD Primary Care Provider [phone] Allergies Active Allergy Reactions Criticality Noted Date Comments Citalopram Headache Low 10/20/2008 Milnacipran Palpitations Low 06/17/2014 Medications krill kfi-kduhy-[id number]-dha-ep a 300-90 (27-45) mg Oral Cap Take 1 Cap by mouth daily. Active fluticasone (FLONASE) 50 mcg/spray [place], Suspension Administer 2 Sprays in each nostril daily. 16 Gram 5 08/08/20 13 Active Additional Information Patient taking differently:2 [place] Both Nostrils DAILY,As needed, Reported on 01/17/2016 aspirin (ECOTRIN EC) 81 mg Tablet, Delayed Release (E.C.) Take 81 mg by mouth daily. Active diclofenac Epolamine (FLECTOR) 1.3 % Patch 12 hr APPLY ONE PATCH EVERY TWELVE HOURS 04/19/20 20 Active lisinopriL (PRINIVIL) 20 mg tabletIndications: Essential hypertension TAKE ONE TABLET BY MOUTH ONCE DAILY 30 Tablet 5 09/16/20 20 Active metFORMIN (GLUCOPHAGE) 500 mg tabletIndications: Mixed hyperlipidemia due to type 2 diabetes mellitus (CMS/HCC) TAKE TWO TABLETS BY MOUTH DAILY BEFORE BREAKFAST AND ONE TABLET DAILY BEFORE SUPPER 90 Tablet 5 09/16/20 20 Active omeprazole (PriLOSEC) 20 mg Capsule, Delayed Release(E.C.)Indic ations:Gastroesoph ageal reflux disease without esophagitis TAKE ONE CAPSULE BY MOUTH ONCE DAILY 30 Capsule 5 10/19/19 21 Active atorvastatin (LIPITOR) 20 mg tablet TAKE ONE TABLET BY MOUTH ONCE DAILY AT BEDTIME. 90 Tablet 3 11/20/19 21 Active traZODone (DESYREL) 50 mg tabletIndications: Primary insomnia TAKE ONE TABLET BY MOUTH ONCE DAILY AT BEDTIME NEEDED FOR SLEEP 90 Tablet 3 11/20/19 21 Active ibuprofen (MOTRIN) 600 mg tabletIndications: Primary osteoarthritis involving multiple joints Take 1 Tablet (600 mg) by mouth every 6 hours as needed for Pain, Mild or Pain, Moderate. 90 Tablet 1 11/20/19 21 Active HYDROcodone-acetam inophen (NORCO) 5-325 mg tabletIndications: Chronic pain of both knees,Primary osteoarthritis involving multiple joints Take 0.5-1 Tablets by mouth 4 times daily as needed for Pain. Osteoarthritis multiple joints. Max Daily Amount: 4 Tablets 50 Tablet 12/02/19 Active polyethylene glycol 3350 (MIRALAX) 17 gram/dose Powder Dissolve ENTIRE BOTTLE in 8 ounces of fluid and drink entire liquid for bowel prep. 238 Gram 12/10/19 21 Active bisacodyL (DULCOLAX) 5 mg Delayed Release tablet Take 2 tablets the night before bowel prep and 2 tablets the morning of bowel prep 4 Tablet 12/10/19 21 Active Active Problems Problem Noted Date Diagnosed Date Acute right-sided low back pain with right-sided sciatica 04/20/2020 Primary insomnia 10/04/2019 CLL (chronic lymphocytic leukemia) 05/27/2019 Paresthesia of right lower extremity 03/09/2017 Primary osteoarthritis of hands, bilateral 11/06 Elevated uric acid in blood 02/02/2016 Severe obesity (BMI 35.0-39.9) with comorbidity 01/17/2016 Personal history of colonic polyps 11/29/2015 Degenerative arthritis of knee 08/01/2011 Essential hypertension 10/20/2008 Gastroesophageal reflux disease without esophagi tis 10/20/2008 Primary osteoarthritis involving multiple joints 10/20/2008 Mixed hyperlipidemia due to type 2 diabetes noreen itus 10/20/2008 Resolved Problems Problem Noted Date Diagnosed Date Resolved Date Uncontrolled type 2 diabetes mellitus without complication, without long-term current use of insulin 11/06/2016 02/08/2017 Diabetes mellitus type II, uncontrolled 01/27/2013 11/06/2016 OAB (overactive bladder) 09/25/2011 Gout 05/25/2011 10/04/2019 Knee pain, bilateral 05/25/2011 020 Recurrent major depressive d isorder, in partial remission 10/20/2008 08/27/2017 Stress 10/20/2008 03/09/2018 Social isolation 10/20/2008 10/04/2019 Muscle strain 10/20/2008 03/09/2018 Obesity 10/20/2008 08/27/2017 Immunizations Immunization Administration Dates Next Due (ADACEL/BOOSTRIX)(10 YR UP) TDAP VACCINE, 0.5ML, IM 09/29/2009 (PFIZER)(12 YR UP) COVID-19 VACCINE - EMERGENCY USE AUTHORIZATION, MRNA, [id number](PF) 30 MCG/0.3 ML IM SUSP 01/14/2021,12/21/2020 (PNEUMOVAX 23)(50 YRS UP) PN EUMOCOCCAL POLYSACCHARIDE (PPV23) 0.5 ML, IM 08/27/2017 (PREVNAR 13)(6 WKS UP) PNEUM OCOCCAL CONJUGATE (PCV13) 0.5 ML, IM 08/04/2013 INFLUENZA VACCINE HIGH DOSE QUADRIVALENT 65 YR UP PF IM 07/13/2020 INFLUENZA VACCINE QUADRIVALENT 6 MOS UP IM 06/23 INFLUENZA VACCINE QUADRIVALENT 6 MOS UP PF IM Influenza Seasonal Unspecified Formulation IM ,09/14/2006 Influenza Vaccine High Dose 65+ Yrs IM 7 Influenza Vaccine Tri Split 4+ Pf Im 07/30/2014 Family History Medical History Relation Name Comments Colon Cancer Brother 1 Diabetes Brother 2 Other Brother 3 back pain Healthy Brother 4 Healthy Brother 5 Other Daughter brain tumor Emphysema Father Heart Disease Father Lung Cancer Maternal Grandfather Healthy Maternal Grandmother Healthy Mother Healthy Paternal Grandfather Healthy Paternal Grandmother Other Sister 1 pneumonia Healthy Sister 2 Healthy Sister 3 Healthy Sister 4 Healthy Sister 5 Healthy Sister 6 Breast Cancer Neg Hx Relation Name Status Comments Brother 1 Brother 2 Alive Brother 3 Alive Brother 4 Alive Brother 5 Alive Daughter Father Maternal Grandfather Maternal Grandmother Mother Paternal Grandfather Paternal Grandmother Sister 1 Sister 2 Alive Sister 3 Alive Sister 4 Alive Sister 5 Alive Sister 6 Alive Social History Tobacco Use Types Packs/Day Years Used Date Smoking Tobacco: Never Smokeless Tobacco: Never Tobacco Cessation:Counseling Given: No Alcohol Use Standard Drinks/Week Comments No 0 (1 standard drink = 0.6 oz pur e alcohol) Comments No Sex and Gender Information Value Date Recorded Sex Assigned at Not on file Legal Sex Female 5:11 AM FLEXO PRESS OPERATOR Gender Identity Not on file Sexual Orientation Not on file Occupation Industry Job Start Date Job End Date Not on file Not on file Not on file Not on file Last Filed Vital Signs Vital Sign Reading Time Taken Comments Blood Pressure 103/50 02/03/2021 10:43 AM CDT Pulse 80 02/03/2021 10:43 AM CDT Temperature 36.1 C (97 F) 02/03/2021 10:39 AM CDT Respiratory Rate 18 02/03/2021 10:43 AM CDT Oxygen Saturation 95% 02/03/2021 10:39 AM CDT Inhaled Oxygen Concentration - - Weight 88.5 kg (195 lb) 02/03/2021 9:57 AM CDT Height 160 cm (5' 3 ) 02/03/2021 9:57 AM CDT Body Mass Index 34.54 02/03/2021 9:57 AM CDT Plan of Treatment Health Maintenance Due Date Last Done Comments DIABETES ANNUAL FOOT EXAM 1963 ZOSTER VACCINE (1 of 2) 1965 DTAP/TDAP/TD VACCINES (2 - T d or Tdap) 09/29/2019 09/29/2009 COVID-19 Vaccine (3 - Pfizer risk series) 02/11/2021 01/14/2021, 12/21/2020 RSV VACCINE (60+ or ) (1 - 1-dose 75+ series) 2021 DIABETES HBA1C Q 6 MONTHS 05/22/20212020, 06/07/2020, 06/07/2020, Additional history exists DIABETES MICROALBUMIN ANNUAL SCREEN 06/07/2021 06/07/2020, 05/21/2019, 08/21/2017, Additional history exists Traditional Medicare (ACO) A nnual Wellness Visit 07/14/2021 07/13/2020, 06/12/2018 LDL CHOLESTEROL ANNUAL 11/19/2021 , 06/07/2020, 01/15/2020, Additional history exists OSTEOPOROSIS SCREENING 09/03/2022 09/03/2017 DIABETES ANNUAL RETINAL EXAM 10/03/2023, 07/13/2020, 01/20/2020, Additional history exists INFLUENZA VACCINE (#1) 2025 , 06/27/2017, 06/20/2017, Additional history exists COLORECTAL SCREENING 02/03/2026 02/03/2021, 11/29/2015, 10/05/2010, Additional history exists PNEUMOCOCCAL VACCINE 50+ YEARS Completed 08/27/2017 , 08/04/2013 Medical Devices Implanted Type Area Abrasive Wheel Molder Device Identifier Shelf Expiration Date Model / Serial / Lot Log [id number] - Cement - 1 - Cement Palacos Sgl [id number] Implanted:Qty: 1 on 08/01/2011 at [facility] Cement Left: Knee [employer] 09/17/2015 [id number] 0-01 / NA / [id number] Log [id number] - [place] Total Knee - 1 - Comp Tib Triathlon Cmnt 5520-B-400 Implanted:Qty: 1 on 08/04/2011 at [facility] Knee Left: Knee [employer]AY[employer] 06/17/2016 5520-B-400 / NA / [id number] Log [id number] - Nay Total Knee - 1 - Insert Tib Triathlon Cr 5530-P-409 Implanted:Qty: 1 on 08/04/2011 at [facility] Knee Left: Knee NAY- [employer] 05/18/2013 5530-P-409 / NA / [id number] Log [id number] - [place] Total Knee - 1 - Comp Fem Trthln Cr Sz4 Lt 5510-F-[id number] Implanted:Qty: 1 on 08/04/2011 at [facility] Knee Left: Knee [employer] 02/16/2016 5510-F-[id number] / NA / [id number] Log [id number] - Nay Total Knee - 1 - Patella Trthln Asym Poly 5551-L-320 Implanted:Qty: 1 on 08/04/2011 at [facility] Knee Left: Knee NAY- [employer] 06/17/2015 5551-L-320 / NA / [id number] Explanted Type Area Abrasive Wheel Molder Device Identifier Shelf Expiration Date Model / Serial / Lot Log [id number] - [place] Total Knee - 1 - Pin Headless Fltd 09/24 [id number] Explanted:Qty: 1 at [facility] Pin Left: Knee [employer] 06/17/2016 [id number] / NA / [id number] Description:CHARGED FOR IN P ICKLIST Procedures Procedure Name Priority Date/Time Associated Diagnosis Comments LIPID PANEL Routine 11/19/2020 9:47 AM FLEXO PRESS OPERATOR Essential hypertension Mixed hyperlipidemia due to type 2 diabetes mellitus ([facility]) HEMOGLOBIN A1C Routine 11/19/2020 9:47 AM FLEXO PRESS OPERATOR Mixed hyperlipidemia due to type 2 diabetes mellitus ([facility]) MICROALBUMIN/CREATI NINE RATIO, RANDOM UR Routine 06/07/2020 9:18 AM CDT Mixed hyperlipidemia due to type 2 diabetes mellitus ([facility]) HM DIABETES EYE EXAM Routine 11/21/2018 XR DEXA BONE DENSITY AXIAL 1 OR MORE SITES Routine 09/03/2017 12:39 PM FLEXO PRESS OPERATOR Screening for osteoporosis Post-menopausal ENDOSCOPY, COLON, SCREENING Routine 10/05/2010 9:18 AM FLEXO PRESS OPERATOR Screening colonoscopy from Last 3 Months or Most Recently Relevant to Health Maintenance Results * (ABNORMAL) HEMOGLOBIN A1C (11/19/2020 9:47 AM FLEXO PRESS OPERATOR) HEMOGLOBIN A1C 6.5(H) See Comment % 11/19/2020 9:06 PM FLEXO PRESS OPERATOR [facility] EST. AVG GLUCOSE, A1C 140 mg/dL 11/19/2020 9:06 PM FLEXO PRESS OPERATOR [facility] Blood Venipuncture / Unknown 11/19/2020 9:47 AM FLEXO PRESS OPERATOR 11/19/2020 8:45 PM FLEXO PRESS OPERATOR Narrative [facility] - 11/19/2020 9:06 PM FLEXO PRESS OPERATOR HGB A1C INTERPRETATION NORMAL: <5.7% PRE-DIABETES: 5.7 - 6.4% DIABETES: 6.5% OR GREATER Falsely low A1C measurements can occur when: 1. Anemia and/or hemolytic anemia is present. 2. Hemoglobin variants present. 3. Renal failure. 4. Transfusion of blood product in the last 120 days. We recommend ordering a fructosamine test([id number]) to more accurately assess glycemic status if any of the above conditions are present. Shaquille Zelaya MD CHEMISTRY ORDERABLES Final Resu lt [facility] CLIA# [id number] [address] [place] [address] * LIPID PANEL (11/19/2020 9:47 AM FLEXO PRESS OPERATOR) [facility] CHOLESTEROL 148 <200 mg/dL 11/19/2020 9:43 PM [facility] TRIGLYCERIDE 142 <150 mg/dL 11/19/2020 9:43 PM [facility] HDL 55 40 - 59 mg/dL 11/19/2020 9:43 PM [facility] LDL CALCULATED 65 <100 mg/dL 11/19/2020 9:43 PM FLEXO PRESS OPERATOR [facility] NON-HDL CHOLESTEROL 93 <130 mg/dL 11/19/2020 9:43 PM [facility] Blood Venipuncture / Unknown 11/19/2020 9:47 AM FLEXO PRESS OPERATOR 11/19/2020 8:45 PM FLEXO PRESS OPERATOR Narrative [facility] - 11/19/2020 9:43 PM FLEXO PRESS OPERATOR TOTAL CHOLESTEROL mg/dL Desirable <200 Borderline high 200-239 High >=240 TRIGLYCERIDES mg/dL Normal <150 Borderline high 150-199 High 200-499 Very high >=500 HDL CHOLESTEROL mg/dL Low <40 Normal 40-59 Desirable >=60 NON HDL CHOLESTEROL mg/dL Optimal <130 Near Optimal 130-159 Borderline High 160-189 Very High >=190 CALCULATED LDL mg/dL LDL <70, OPTIMAL if have Atherosclerotic cardiovascular disease (ASCVD) or intermediate or higher (>7.5%) 10 year risk of ASCVD including most adults with diabetes. LDL <100, Optimal in adult patients with low (<7.5%) 10 year ASCVD risk LDL 100-160, Suboptimal LDL >160, High LDL >190, Very high ATPIII Guidelines Reference Ranges for Lipid Panels (NCEP/AMA) . Shaquille Zelaya MD CHEMISTRY ORDERABLES Final Resu lt Performing Organization Address [facility] Co de Phone Number [facility] CLIA# [id number] [address] [place] [address] * MICROALBUMIN/CREATININE RATIO, RANDOM UR (06/07/2020 9:18 AM CDT) MICROALBUMIN, URINE <1.2 No Reference Range mg/dL 06/07/2020 9:08 PM CDT [facility] CREATININE, URINE 55.1 29.0 - 226.0 mg/dL 06/07/2020 9:08 PM CDT [facility] Comment:Reference Range vari es with fluid intake and diet. MICROALBUMIN/C REAT RATIO, UR <21.8 <25.0 mg/g 06/07/2020 9:08 PM T [facility] Urine URINE SPECIMEN OBTAINED BY CLEAN CATCH PROCEDURE / Unknown Collection / Unknown 06/07/2020 9:18 AM CDT 06/07/2020 8:26 PM CDT Narrative [facility] - 06/07/2020 9:08 PM CDT Condition Microalbumin/Creat ratio Normal Males <17 Normal Females <25 Microalbuminuria Males 17-299 Microalbuminuria Females 25-299 Overt proteinuria >=300 Shaquille Zelaya MD URINE ORDERABLES Final Result Performing Organization Address [facility]/ZIP Co de Phone Number [facility] CLIA# [id number] [address] [place] [address] * DIABETES EYE EXAM (11/21/2018) us Abstract Spg Provider HEALTH MAINTENANCE Final R esult * XR DEXA BONE DENSITY AXIAL 1 OR MORE SITES (09/03/2017 12:39 PM FLEXO PRESS OPERATOR) Anatomical Region Laterality Modality Digital Radiogra phy 09/03/2017 12:4 0 PM FLEXO PRESS OPERATOR Impressions 09/03/2017 2:52 PM FLEXO PRESS OPERATOR IMPRESSION: Normal bone density at all locations lying significantly above the average of the patient's age-matched control. Narrative 09/03/2017 2:52 PM FLEXO PRESS OPERATOR DEXA Evaluation of the Lumbar Spine and Left Proximal Femur Reason for Consultation: Ovarian failure. Evaluation of bone mineral density. The following absorptiometry data were obtained. The quality of this examination is acceptable with regards to count density, processed images, data display and lack of important artifacts (including but not limited to motion and attenuation artifacts). Serial examination number 1. Lumbar spine images demonstrate increased degenerative changes at the L3 level which is been excluded from measurement/reporting. L1-L4 (L3) BMD (g/cm2): 1.116 Adult T-score: 0.7 Adult Z-score: 2.9 Left Femoral Neck BMD (g/cm2): 0.763 Adult T-score: -0.8 Adult Z-score: 1.1 Left Total Hip BMD (g/cm2): 1.040 Adult T-score: 0.8 Adult Z-score: 2.4 Procedure Note Saul Bustillos MD - 09/03/2017 DEXA Evaluation of the Lumbar Spine and Left Proximal Femur Reason for Consultation: Ovarian failure. Evaluation of bone mineral density. The following absorptiometry data were obtained. The quality of this examination is acceptable with regards to count density, processed images, data display and lack of important artifacts (including but not limited to motion and attenuation artifacts). Serial examination number 1. Lumbar spine images demonstrate increased degenerative changes at the L3 level which is been excluded from measurement/reporting. L1-L4 (L3) BMD (g/cm2): 1.116 Adult T-score: 0.7 Adult Z-score: 2.9 Left Femoral Neck BMD (g/cm2): 0.763 Adult T-score: -0.8 Adult Z-score: 1.1 Left Total Hip BMD (g/cm2): 1.040 Adult T-score: 0.8 Adult Z-score: 2.4 IMPRESSION: Normal bone density at all locations lying significantly above the average of the patient's age-matched control. Shaquille Zelaya MD DIAGNOSTIC IMAGING ORDERABLES F inal Result from Last 3 Months or Most Recently Relevant to Health Maintenance Insurance MEDICARE PART A AND B [facility] Advance Directives For more information, please contact: [phone] * Full Code (Latest Code Status on File) Date Activated Date Inactivated Comments 11/29/2015 12:39 PM 11/29/2015 3:01 PM * Full Code Date Activated Date Inactivated Comments 11/29/2015 12:15 PM 11/29/2015 12:39 PM * Full Code Date Activated Date Inactivated Comments 08/01/2011 1:47 PM 08/04/2011 1:37 PM * Full Code Date Activated Date Inactivated Comments 08/01/2011 1:03 PM 08/01/2011 1:47 PM * Full Code Date Activated Date Inactivated Comments 08/01/2011 9:36 AM 08/01/2011 1:03 PM Care Teams Talcer Relationship Specialty Start Date End Date Shaquille Zelaya MD [address] [place] [phone] PCP - General Family Practice 03/22/15
--- OUTSIDE RECORDS SUMMARY | 2025-03-21 05:41 | XMS_ITS | Encounter Summary ---
Author Organization [facility] Address [address] [place] [address] Care Team Providers Care Rn Faculty Name Role Phone Shaquille Zelaya MD Primary Care Provider Encounter Details Date Type Department Care Team (Latest Contact Info) Description 11/01/[address] [facility] Medicine [place] [address] [place] [phone] Jazmyn Hopkins MD [address] [place] [address] [phone] HYPERTENSION NOS (Primary Dx) Social History Tobacco Use Types Packs/Day Years Used Date Smoking Tobacco: Never Assessed Comments Unknown Sex and Gender Information Value Date Recorded Sex Assigned at Not on file Legal Sex Female 5:11 AM ELECTRIC SYSTEM OPERATOR Gender Identity Not on file Sexual Orientation Not on file documented as of this encounter Plan of Treatment Not on file documented as of this encounter Visit Diagnoses Diagnosis Unspecified essential hypertension- Primary documented in this encounter Care Teams Rn Faculty Relationship Specialty Start Date End Date Shaquille Zelaya MD [address] [place] [phone] PCP - General Family Practice 03/22/15 documented as of this encounter
--- OUTSIDE RECORDS SUMMARY | 2025-03-21 05:41 | XMS_ITS | Encounter Summary ---
Author Organization [facility] Address [address] [place] [address] Care Team Providers Care Physician Anesthesiologist Name Role Phone Shaquille Zelaya MD Primary Care Provider Encounter Details Date Type Department Care Team (Latest Contact Info) Description 05/09/2007 Outpatient Historical [facility] [place] [address] [place] [phone] Jazmyn Hopkins MD [address] [place] [address] [phone] Unspecified Essential Hypertension (Primary Dx); Toxic Effect Venom Social History Tobacco Use Types Packs/Day Years Used Date Smoking Tobacco: Never Assessed Comments Unknown Sex and Gender Information Value Date Recorded Sex Assigned at Not on file Legal Sex Female 5:11 AM JOINT CREASER Gender Identity Not on file Sexual Orientation Not on file documented as of this encounter Plan of Treatment Not on file documented as of this encounter Visit Diagnoses Diagnosis Unspecified essential hypertension- Primary Toxic effect venom Toxic effect of venom documented in this encounter Care Teams Physician Anesthesiologist Relationship Specialty Start Date End Date Shaquille Zelaya MD [address] [place] [address] [phone] PCP - General Family Practice 03/22/15 documented as of this encounter
--- OUTSIDE RECORDS SUMMARY | 2025-03-21 05:41 | XMS_ITS | Encounter Summary ---
Author Organization [facility] Address [address] [place] [address] Care Team Providers Care Graphic Engineer Name Role Phone Shaquille Zelaya MD Primary Care Provider Encounter Details Date Type Department Care Team (Latest Contact Info) Description 03/26/2006 Outpatient Historical [facility] Medicine [place] [address] [place] [phone] Jazmyn Hopkins MD [address] [place] [phone] Unspecified Essential Hypertension (Primary Dx); Other and Unspecified Hyperlipidemia; Unspecified Disorder of Skin and Subcutaneous Tissue Social History Tobacco Use Types Packs/Day Years Used Date Smoking Tobacco: Never Assessed Comments Unknown Sex and Gender Information Value Date Recorded Sex Assigned at Not on file Legal Sex Female 5:11 AM SOCIAL WORK ASSOCIATE Gender Identity Not on file Sexual Orientation Not on file documented as of this encounter Plan of Treatment Not on file documented as of this encounter Visit Diagnoses Diagnosis Unspecified essential hypertension- Primary Other and unspecified hyperlipidemia Unspecified disorder of skin and subcutaneous tissue documented in this encounter Care Teams Graphic Engineer Relationship Specialty Start Date End Date Shaquille Zelaya MD [address] [place] [address] [phone] PCP - General Family Practice 03/22/15 documented as of this encounter
--- OUTSIDE RECORDS SUMMARY | 2025-03-21 05:41 | XMS_ITS | Encounter Summary ---
Author Organization [facility] Address [address] [place] [address] Care Team Providers Care Optical Scientist Name Role Phone Shaquille Zelaya MD Primary Care Provider Encounter Details Date Type Department Care Team (Latest Contact Info) Description 03/19/2003 Outpatient Historical [facility] Cardiology- [place] [address] [place] [address] Olman Ochoa MD NO ADDRESS ON FILE Benign hypertension (Primary Dx); OBESITY NOS Social History Tobacco Use Types Packs/Day Years Used Date Smoking Tobacco: Never Assessed Comments Unknown Sex and Gender Information Value Date Recorded Sex Assigned at Not on file Legal Sex Female 5:11 AM NETWORK TECHNICIAN Gender Identity Not on file Sexual Orientation Not on file documented as of this encounter Plan of Treatment Not on file documented as of this encounter Visit Diagnoses Diagnosis Benign hypertension- Primary Essential hypertension, benign Obesity, unspecified documented in this encounter Care Teams Optical Scientist Relationship Specialty Start Date End Date Shaquille Zelaya MD [address] [place] [address] PCP - General Family Practice 03/22/15 documented as of this encounter
--- OUTSIDE RECORDS SUMMARY | 2025-03-21 05:41 | XMS_ITS | Encounter Summary ---
Author Organization [facility] Address [address] [place] [address] Care Team Providers Care Wet Process Head Miller Name Role Phone Shaquille Zelaya MD Primary Care Provider [phone] Reason for Referral * Outpatient Services (Routine) - Closed Specialty Diagnoses / Procedures Referred By Contac t Referred To Contact Diagnoses Other screening mammogram Procedures MAMMO DIGITIZED STUDY Florencio Merritt NP [address] [place] [address] Phone: tel: fax: Referral ID Status Reason Start Date Expiration Date Visits Re quested Visits Authorized [id number] Closed 08/02/2012 08/02/2013 1 1 RETE TILE MACHINE OPERATOR * Outpatient Services (Routine) - Closed Specialty Diagnoses / Procedures Referred By Contac pasha Referred To Contact Diagnoses Other screening mammogram Procedures MAMMO DIGITIZED STUDY Florencio Merritt NP [address] [place] [address] Phone: tel: fax: Referral ID Status Reason Start Date Expiration Date Visits Re quested Visits Authorized [id number] Closed 08/02/2012 08/02/2013 1 1 RETE TILE MACHINE OPERATOR Encounter Details Date Type Department Care Team (Latest Contact Info) Description 08/02/2012 Ancillary Orders [facility] [address] [facility] [address] [phone] Florencio Merritt, CRUZITO [address] [place] [address] Other screening mammogram Social History Tobacco Use Types Packs/Day Years Used Date Smoking Tobacco: Never Smokeless Tobacco: Never Alcohol Use Standard Drinks/Week Comments No 0 (1 standard drink = 0.6 oz pur e alcohol) Comments No Sex and Gender Information Value Date Recorded Sex Assigned at Not on file Legal Sex Female 5:11 AM CONCRETE TILE MACHINE OPERATOR Gender Identity Not on file Sexual Orientation Not on file documented as of this encounter Plan of Treatment Not on file documented as of this encounter Results * MAMMO DIGITIZED STUDY (11/26/2007 1:39 PM CDT) Narrative Kathy Samano - 08/02/2012 1:39 PM CONCRETE TILE MACHINE OPERATOR Order information only. Exam was auto-finalized. Procedure Note Kathy Samano - 08/02/2012 Order information only. Exam was auto-finalized. Florencio Merritt NP DIAGNOSTIC IMAGING ORDERABLES Final Result * MAMMO DIGITIZED STUDY (05/07/2006 1:38 PM CDT) Narrative Kathy Samano - 08/02/2012 1:39 PM CONCRETE TILE MACHINE OPERATOR Order information only. Exam was auto-finalized. Procedure Note Kathy Samano - 08/02/2012 Order information only. Exam was auto-finalized. Florencio Merritt NP DIAGNOSTIC IMAGING ORDERABLES Final Result documented in this encounter Visit Diagnoses Diagnosis Other screening mammogram Other screening mammogram Other screening mammogram documented in this encounter Care Teams Wet Process Head Miller Relationship Specialty Start Date End Date Shaquille Zelaya MD [address] [place] [address] PCP - General Family Practice 03/22/15 documented as of this encounter
--- OUTSIDE RECORDS SUMMARY | 2025-03-21 05:41 | XMS_ITS | Encounter Summary ---
Author Organization [facility] Address [address] [place] [address] Care Team Providers Care Spares Scheduler Name Role Phone Shaquille Zelaya MD Primary Care Provider [phone] Reason for Referral * Radiology Services (Routine) - Closed Specialty Diagnoses / Procedures Referred By Contac t Referred To Contact Diagnoses Visit for screening mammogram Procedures MAMMO 3D SCREEN BILATERAL MOBILE Shaquille Zelaya MD [address] [place] [phone] Phone: tel: fax: Referral ID Status Reason Start Date Expiration Date Visits Re quested Visits Authorized [id number] Closed 10/29/2018 11/29/2019 1 1 H EXPERT Encounter Details Date Type Department Care Team (Latest Contact Info) Description 10/29/2018 Ancillary Orders [facility] [address] [address] Shaquille Zelaya MD [address] [place] [address] Visit for screening mammogram Social History Tobacco Use Types Packs/Day Years Used Date Smoking Tobacco: Never Smokeless Tobacco: Never Alcohol Use Standard Drinks/Week Comments No 0 (1 standard drink = 0.6 oz pur e alcohol) Comments No Sex and Gender Information Value Date Recorded Sex Assigned at Not on file Legal Sex Female 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 EXPERT Gender Identity Not on file Sexual Orientation Not on file Occupation Industry Job Start Date Job End Date Not on file Not on file Not on file Not on file documented as of this encounter Plan of Treatment Not on file documented as of this encounter Results * MAMMO 3D SCREEN BILATERAL MOBILE (01/30/2019 10:02 AM CDT) Anatomical Region Laterality Modality Breast Bilateral Mammography Narrative 02/05/2019 10:21 AM CDT Bilateral Digital Mammogram with CAD and 3D Tomography Reason for Exam: Screening Comparison: Compared to: 10/31/2017 MAMMO SCRN BILAT MOBILE W OR [...] significant new findings since the prior mammogram(s). Shaquille Zelaya MD MAMMO ORDERABLES Final Result documented in this encounter Visit Diagnoses Diagnosis Visit for screening mammogram Other screening mammogram documented in this encounter Additional Health Concerns Assessment Noted Time PHQ-9 Depression Total Score: 2 08/27/20 17 9:00 PM BEACH EXPERT documented as of this encounter Care Teams Spares Scheduler Relationship Specialty Start Date End Date Shaquille Zelaya MD [address] [place] [address] PCP - General Family Practice 03/22/15 documented as of this encounter
--- OUTSIDE RECORDS SUMMARY | 2025-03-21 05:41 | XMS_ITS | Encounter Summary ---
Author Organization [facility] Address [address] [facility] [place] [address] Care Team Providers Care Washer Assembler Name Role Phone Shaquille Zelaya MD Primary Care Provider [phone] Encounter Details Date Type Department Care Team (Latest Contact Info) Description 05/07/2006 Outpatient Historical [facility] [address] [facility] [address] [place] [address] Melody Gama MD NO ADDRESS ON FILE Other Screening Mammogram (Primary Dx); Other Malaise and Fatigue; Unspecified Essential Hypertension Social History Tobacco Use Types Packs/Day Years Used Date Smoking Tobacco: Never Assessed Comments Unknown Sex and Gender Information Value Date Recorded Sex Assigned at Not on file 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
--- OUTSIDE RECORDS SUMMARY | 2025-03-21 05:41 | XMS_ITS | Encounter Summary ---
Author Organization [facility] Address [address] [place] [address] Care Team Providers Care Car Ferry Master Name Role Phone Shaquille Zelaya MD Primary Care Provider Encounter Details Date Type Department Care Team (Latest Contact Info) Description 04/20/2006 Outpatient Historical [facility] Medicine [place] [address] [place] [phone] Jazmyn Hopkins MD [address] [place] [phone] Other Malaise and Fatigue (Primary Dx); Other and Unspecified Hyperlipidemia; Unspecified Hypertrophic and Atrophic Condition of Skin; Unspecified Essential Hypertension Social History Tobacco Use Types Packs/Day Years Used Date Smoking Tobacco: Never Assessed Comments Unknown Sex and Gender Information Value Date Recorded Sex Assigned at Not on file 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
--- OUTSIDE RECORDS SUMMARY | 2025-03-21 05:41 | XMS_ITS | Encounter Summary ---
Author Organization [facility] Address [address] [place] [address] Care Team Providers Care Steel Manager Name Role Phone Shaquille Zelaya MD Primary Care Provider [phone] Encounter Details Date Type Department Care Team (Latest Contact Info) Description 11/18/2007 Outpatient Historical [facility] 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
--- OUTSIDE RECORDS SUMMARY | 2025-03-21 05:41 | XMS_ITS | Encounter Summary ---
Author Organization [facility] Address [address] [place] [address] Care Team Providers Care Licensed Electrician Name Role Phone Shaquille Zelaya MD Primary Care Provider [phone] Reason for Referral * Outpatient Services (Routine) - Closed Specialty Diagnoses / Procedures Referred By Contac t Referred To Contact Diagnoses Other screening mammogram Procedures MAMMO DIGITAL SCREEN BILAT [employer] Florencio Merritt NP [address] [place] [address] Phone: tel: fax: Referral ID Status Reason Start Date Expiration Date Visits Re quested Visits Authorized [id number] Closed 07/31/2012 07/31/2013 1 1 STANT TRACK COACH Encounter Details Date Type Department Care Team (Latest Contact Info) Description 07/31/2012 Ancillary Orders [facility] [facility] [address] [phone] Florencio Merritt NP [address] [place] [address] Other screening mammogram Social History Tobacco Use Types Packs/Day Years Used Date Smoking Tobacco: Never Smokeless Tobacco: Never Alcohol Use Standard Drinks/Week Comments No 0 (1 standard drink = 0.6 oz pur e alcohol) Comments No Sex and Gender Information Value Date Recorded Sex Assigned at Not on file Legal Sex Female 5:11 AM ASSISTANT TRACK COACH Gender Identity Not on file Sexual Orientation Not on file documented as of this encounter Plan of Treatment Not on file documented as of this encounter Results * MAMMO DIGITAL SCREEN BILAT MOBILE (08/06/2012 10:20 AM ASSISTANT TRACK COACH) Anatomical Region Laterality Modality Breast Bilateral Mammography Narrative 08/07/2012 11:36 AM ASSISTANT TRACK COACH Bilateral Mammogram Reason for Exam: Screening Comparison: Comparison is made with prior exam(s). Findings: Bilateral CC and MLO views were obtained. This examination was reviewed with the aid of a computer-aided detection system(CAD). The breast tissue density is average. Asymmetry appears stable. Bilateral breast nodularity is stable. Bilateral calcifications appear stable. No significant new findings since the prior mammogram(s). Procedure Note Alyson Rodrigues MD - 08/07/2012 Bilateral Mammogram Reason for Exam: Screening Comparison: Comparison is made with prior exam(s). Findings: Bilateral CC and MLO views were obtained. This examination was reviewed with the aid of a computer-aided detectionsystem(CAD). The breast tissue density is average. Asymmetry appears stable. Bilateralbreast nodularity is stable. Bilateral calcifications appear stable. No significant new findings since the prior mammogram(s). Florencio Merritt NP MAMMO ORDERABLES Final Result documented in this encounter Visit Diagnoses Diagnosis Other screening mammogram Other screening mammogram documented in this encounter Care Teams Licensed Electrician Relationship Specialty Start Date End Date Shaquille Zelaya MD [address] [place] [address] PCP - General Family Practice 03/22/15 documented as of this encounter
--- NOTE | 2025-03-21 05:49 | W.ED.GENADLT ---
Documented by User: Junior Carey MD 03/21/25 05:56 HPI - General Adult General: Chief complaint: General Medical Stated complaint: HTN Time Seen by Provider: 03/21/25 05:34 History of Present Illness: Patient had a fall yesterday falling forward and hitting her forehead. She states she has a headache and neck pain. Denies any other injury. Denies any neurologic changes. Related Data Home Medications ?Medication ?Instructions ?Recorded ?Confirmed metformin 500 mg tablet See Rx Instructions .Route .COMPLEX 04/17/20 03/21/25 omeprazole 20 mg capsule,delayed 20 mg PO DAILY 04/17/20 03/21/25 release allopurinol 100 mg tablet 100 mg PO DAILY 12/22/22 03/21/25 atorvastatin 20 mg tablet 20 mg PO DAILY 12/22/22 03/21/25 acetaminophen 500 mg tablet 500 mg PO Q6H PRN Pain 10/03/24 03/21/25 ascorbic acid (vitamin C) 500 mg 250 mg PO DAILY 10/03/24 03/21/25 tablet (Vitamin C) aspirin 81 mg tablet,delayed 81 mg PO Q7D 10/03/24 03/21/25 release amlodipine 2.5 mg tablet 2.5 mg PO DAILY 11/06/24 03/21/25 lisinopril 40 mg tablet 40 mg PO DAILY 11/06/24 03/21/25 Previous Rx's ?Medication ?Instructions ?Recorded tramadol 50 mg tablet 50 mg PO Q8H PRN pain #10 tabs 03/21/25 Allergies Allergy/AdvReac Type Severity Reaction Status Date / Time No Known Allergies Allergy Verified 02/28/23 10:07 [facility] ED PFSH: Medical History Diabetes Physical Exam HENMT: OTHER: Contusion noted on the right forehead Neck/C-Spine: COMMON NORMALS: no JVD OTHER: Bilateral paravertebral muscle tenderness. No midline tenderness Resp: COMMON NORMALS: normal respiratory effort, No retractions, No use of accessory muscles, clear to auscultation bilaterally and percussion normal AUSCULTATION: clear to auscultation bilaterally PERCUSSION: percussion normal Cardio: COMMON NORMALS: no JVD, regular rate, regular rhythm, S1 normal heart sound present, S2 normal heart sound present, No gallops present (Cardio), No clicks present (Cardio), No murmurs present (Cardio), No rub (Cardio) and Peripheral pulses 2+ throughout RATE: regular rate RHYTHM: regular rhythm HEART SOUNDS: S1 normal heart sound present and S2 normal heart sound present PERIPHERAL PULSES: Peripheral pulses 2+ throughout GI: COMMON NORMALS: Normal to inspection, nondistended, normoactive bowel sounds present, Soft to palpation, non-tender, No hepatosplenomegaly present, no masses and no bruits PALPATION: Yes Soft to palpation and Yes No hepatosplenomegaly present Course Vital Signs: Vital signs: Vital Signs Pulse Rate 78 03/21/25 09:18 Respiratory Rate 19 H 03/21/25 07:52 Blood Pressure 127/77 03/21/25 09:18 Pulse Oximetry 98 03/21/25 09:18 Oxygen Delivery Me thod Room Air 03/21/25 07:52 MDM - General Adult Medical Decision Making Patient with fall yesterday and having headache and neck pain. Will get CT of head and cervical spine. Care turned over to Dr. Perez. Lab Data Radiology Impressions Cervical Spine CT 03/21/25 05:39 IMPRESSION: Minimally displaced type 2 odontoid process fracture. ADDENDUM: 03/21/25 0620 THIS REPORT CONTAINS FINDINGS THAT MAY BE CRITICAL TO PATIENT CARE. The findings were verbally communicated via telephone conference with Dr. Toscano at 6:19 AM CDT on 03/21/2025. The findings were acknowledged and understood. Head CT 03/21/25 05:39 IMPRESSION: Mild small vessel disease. No evidence of acute intracranial process. Discharge Plan Discharge Patient Disposition: Home Clinical Impression: Closed type II fracture of odontoid process, CLL (chronic lymphocytic leukemia) Condition: Stable Prescriptions: New tramadol 50 mg tablet 50 mg PO Q8H PRN (Reason: pain) Qty: 10 0RF No Action metformin 500 mg tablet See Rx Instructions .ROUTE .COMPLEX Rx Instructions: Take 1000mg by mouth in the am and 500mg with supper. omeprazole 20 mg capsule,delayed release(DR/EC) 20 mg PO DAILY aspirin [Aspir-81] 81 mg Tablet,Delayed Release (Dr/Ec) 81 mg PO Q7D acetaminophen 500 mg Tablet 500 mg PO Q6H PRN (Reason: Pain) ascorbic acid (vitamin C) [Vitamin C] 500 mg Tablet 250 mg PO DAILY lisinopril 40 mg tablet 40 mg PO DAILY amlodipine 2.5 mg tablet 2.5 mg PO DAILY atorvastatin 20 mg Tablet 20 mg PO DAILY allopurinol 100 mg Tablet 100 mg PO DAILY Discharge Orders: Discharge ED (Routine); Ordered 03/21/25 Ordered By: Sam Perez Discharge Diet: Usual diet Discharge Activity: Limit activity as instructed Patient Instructions: Opioid Safety, Pain Management, Patient Portal & [place] Instructions Activity Restrictions/Additional Instructions: Thank you for choosing [facility] for your healthcare needs today. It is very important that you follow up as instructed or that you return to the Emergency Department should you have concerns or if your condition changes or worsens in any way. You were seen in the emergency room after a fall. CT shows a nondisplaced fracture of the odontoid this is a type II fracture and can be treated with immobilization is very important that you relieve the c-collar on. Continue to take your other medications as prescribed. Case management make arrangements for you to follow-up with orthopedic spine surgery Print Language: Guatemalan Sign Out Sign Out Data: Patient Sign Out occurred on 03/21/25 at 06:19. Patient's care was discussed, and care was transferred from Junior Carey MD to Sam Perez DO. Coding Level of Care Code ED [employer] for [employer] Fwd Documented by User: Sam Perez DO 03/21/25 09:23 HPI - General Adult General: Chief complaint: General Medical Stated complaint: HTN Time Seen by Provider: 03/21/25 05:34 Related Data Home Medications ?Medication ?Instructions ?Recorded ?Confirmed metformin 500 mg tablet See Rx Instructions .Route .COMPLEX 04/17/20 03/21/25 omeprazole 20 mg capsule,delayed 20 mg PO DAILY 04/17/20 03/21/25 release allopurinol 100 mg tablet 100 mg PO DAILY 12/22/22 03/21/25 atorvastatin 20 mg tablet 20 mg PO DAILY 12/22/22 03/21/25 acetaminophen 500 mg tablet 500 mg PO Q6H PRN Pain 10/03/24 03/21/25 ascorbic acid (vitamin C) 500 mg 250 mg PO DAILY 10/03/24 03/21/25 tablet (Vitamin C) aspirin 81 mg tablet,delayed 81 mg PO Q7D 10/03/24 03/21/25 release amlodipine 2.5 mg tablet 2.5 mg PO DAILY 11/06/24 03/21/25 lisinopril 40 mg tablet 40 mg PO DAILY 11/06/24 03/21/25 Previous Rx's ?Medication ?Instructions ?Recorded tramadol 50 mg tablet 50 mg PO Q8H PRN pain #10 tabs 03/21/25 Allergies Allergy/AdvReac Type Severity Reaction Status Date / Time No Known Allergies Allergy Verified 02/28/23 10:07 [facility] ED PFSH: Medical History Diabetes Course Vital Signs: Vital signs: Vital Signs Pulse Rate 78 03/21/25 09:18 Respiratory Rate 19 H 03/21/25 07:52 Blood Pressure 127/77 03/21/25 09:18 Pulse Oximetry 98 03/21/25 09:18 Oxygen Delivery Me thod Room Air 03/21/25 07:52 MDM - General Adult Medical Decision Making Patient with fall yesterday and having headache and neck pain. Will get CT of head and cervical spine. Care turned over to Dr. Perez. CT shows type II nondisplaced odontoid fracture. Placed patient in a [place] J collar tramadol for pain set her up for outpatient follow-up with Dr. Harris at the office. She has no radicular symptoms at this time. Medical Records I reviewed the patient's medical records. Lab Data I reviewed the patient's lab results. Radiology Impressions Cervical Spine CT 03/21/25 05:39 IMPRESSION: Minimally displaced type 2 odontoid process fracture. ADDENDUM: 03/21/2520 THIS REPORT CONTAINS FINDINGS THAT MAY BE CRITICAL TO PATIENT CARE. The findings were verbally communicated via telephone conference with Dr. Toscano at 6:19 AM CDT on 03/21/2025. The findings were acknowledged and understood. Head CT 03/21/25 05:39 IMPRESSION: Mild small vessel disease. No evidence of acute intracranial process. All radiology interpretation(s) finalized by discharge Discharge Plan Discharge Patient Disposition: Home Clinical Impression: Closed type II fracture of odontoid process, CLL (chronic lymphocytic leukemia) Condition: Stable Prescriptions: New tramadol 50 mg tablet 50 mg PO Q8H PRN (Reason: pain) Qty: 10 0RF No Action metformin 500 mg tablet See Rx Instructions .ROUTE .COMPLEX Rx Instructions: Take 1000mg by mouth in the am and 500mg with supper. omeprazole 20 mg capsule,delayed release(DR/EC) 20 mg PO DAILY aspirin [Aspir-81] 81 mg Tablet,Delayed Release (Dr/Ec) 81 mg PO Q7D acetaminophen 500 mg Tablet 500 mg PO Q6H PRN (Reason: Pain) ascorbic acid (vitamin C) [Vitamin C] 500 mg Tablet 250 mg PO DAILY lisinopril 40 mg tablet 40 mg PO DAILY amlodipine 2.5 mg tablet 2.5 mg PO DAILY atorvastatin 20 mg Tablet 20 mg PO DAILY allopurinol 100 mg Tablet 100 mg PO DAILY Discharge Orders: Discharge ED (Routine); Ordered 03/21/25 Ordered By: Sam Perez Discharge Diet: Usual diet Discharge Activity: Limit activity as instructed Patient Instructions: Opioid Safety, Pain Management, Patient Portal & Winn[place] Instructions Activity Restrictions/Additional Instructions: Thank you for choosing [facility] for your healthcare needs today. It is very important that you follow up as instructed or that you return to the Emergency Department should you have concerns or if your condition changes or worsens in any way. You were seen in the emergency room after a fall. CT shows a nondisplaced fracture of the odontoid this is a type II fracture and can be treated with immobilization is very important that you relieve the c-collar on. Continue to take your other medications as prescribed. Case management make arrangements for you to follow-up with orthopedic spine surgery Print Language: Guatemalan Sign Out Sign Out Data: Patient Sign Out occurred on 03/21/25 at 06:19. Patient's care was discussed, and care was transferred from Junior Carey MD to Sam Perez DO. Coding Level of Care Code ED [employer] for [employer]
[2025-03-21 06:56] VITALS: BP 150/73; PULSE 83; O2SAT 94
--- NOTE | 2025-03-21 06:56 | PC.NURSE ---
c-collar applied per verbal order of Dr. Perez
[2025-03-21] MEDS: LORazepam 1 MG/0.5 ML injection 0.5 MG IVP (07:43)
--- NOTE | 2025-03-21 07:43 | PC.NURSE ---
@[phone] this nurse observed pt yelling. this nurse assessed situation, pt anxious over c-collar. Dr. Perez at bedside discussing need for c-collar and offered Ativan. pt agreed to try ativan and repositioning.
[2025-03-21 07:52] VITALS: BP 150/80; PULSE 85; RESP 19; O2SAT 90
[2025-03-21 08:28] VITALS: BP 171/93; PULSE 87; O2SAT 91
[2025-03-21 09:18] VITALS: BP 127/77; PULSE 78; O2SAT 98
--- NOTE | 2025-03-21 09:32 | PC.NURSE ---
pt refusing wheelchair assistance to [facility] upon d/c
--- NOTE | 2025-03-23 08:52 | DCPLANNER ---
messaged ortho for er f/u
== END 2025-03-21 09:32 | disposition home or self-care (01) ==
PROVIDERS: Emergency Provider Family Medicine
DX: S12.110A Anterior displaced Type II dens fracture, initial encounter for closed fracture (principal); C91.10 Chronic lymphocytic leukemia of B-cell type not having achieved remission; Z79.82 Long term (current) use of aspirin; W19.XXXA Unspecified fall, initial encounter
CPT/HCPCS: 70450; 72125; 96374; 99285; J2060

== ENCOUNTER → 2025-03-26 08:09 | Outpatient (BNVA) | payer MEDICARE, OTHER, SELFPAY | PROVIDERS: Visit Provider Orthopaedic Surgery | DX: S12.110A Anterior displaced Type II dens fracture, initial encounter for closed fracture (principal); W01.0XXA Fall on same level from slipping, tripping and stumbling without subsequent striking against object, initial encounter | CPT/HCPCS: 72040; 99203 ==

== ENCOUNTER → 2025-04-09 08:12 | Outpatient (BNVA) | payer MEDICARE, OTHER, SELFPAY | PROVIDERS: PCP Family Medicine; Referring Provider Orthopaedic Surgery; Visit Provider Orthopaedic Surgery | DX: S12.100D Unspecified displaced fracture of second cervical vertebra, subsequent encounter for fracture with routine healing (principal); X58.XXXD Exposure to other specified factors, subsequent encounter; Z46.89 Encounter for fitting and adjustment of other specified devices | CPT/HCPCS: 72040; 99213 ==

== ENCOUNTER → 2025-04-28 08:22 | Outpatient (BNVA) | payer MEDICARE, OTHER, SELFPAY | PROVIDERS: PCP Family Medicine; Visit Provider Orthopaedic Surgery | DX: S12.100D Unspecified displaced fracture of second cervical vertebra, subsequent encounter for fracture with routine healing (principal); X58.XXXD Exposure to other specified factors, subsequent encounter | CPT/HCPCS: 72040; 99213 ==

== ENCOUNTER → 2025-06-18 08:01 | Outpatient (BNVA) | payer MEDICARE, SELFPAY | PROVIDERS: PCP Family Medicine; Visit Provider Orthopaedic Surgery | DX: S12.100D Unspecified displaced fracture of second cervical vertebra, subsequent encounter for fracture with routine healing (principal); X58.XXXD Exposure to other specified factors, subsequent encounter | CPT/HCPCS: 72040; 99024; 99213 ==